=== PATIENT | female | born 1955 | race Caucasian/White ===

== ENCOUNTER 2022-01-09 14:54 | Emergency (ER) | payer OTHER, SELFPAY ==
--- NOTE | ~2022-01-09 | CT_ITS ---
EXAMINATION: CT brain wo con DATE: 01/09/2022 15:31 CDT INDICATION: Altered mental status TECHNIQUE: Computed tomography (CT) of the pelvis was performed without intravenous contrast. CT hannah nstructions of the hip were obtained in the axial, coronal, and sagittal planes. The dose-length prod uct was 605.33 mGy-cm. Automated exposure control and iterative reconstruction technique were employe d. COMPARISON: None FINDINGS: Generalized atrophy. There are scattered severe periventricular and subcortical white matte r changes, most likely related to small vessel ischemic disease (microangiopathy). There are chronic bilateral lacunar and left cerebellar infarctions. No ventriculomegaly or midline shift. No acute inf arction or hemorrhage. There is intracranial atherosclerosis. Paranasal sinuses and mastoids are pneu matized. IMPRESSION: 1. No acute intracranial abnormality. 2: Chronic bilateral lacunar and left cerebellar infarctions. 3: Chronic age-related findings. Reviewed, dictated and finalized at location B.
[2022-01-09 14:12] VITALS: BP 136/72; PULSE 58; RESP 18; TEMP 36.6; O2SAT 99
[2022-01-09 14:34] LABS: Basophils Percent Auto 0.9 % (0.2-1.2); Eosinophils Absolute Auto 0.1 K/mm3 (0-0.3); Eosinophils Percent Auto 2.3 % (0-4.4); Hematocrit 35.7 % (37.0-47.0); Hemoglobin 11.1 g/dL (12.0-15.0); Immature Granulocyte Absolute 0.01 K/mm3 (0.00-0.031); Immature Granulocyte Percent A 0.2 % (0-0.5); Immature Platelet Fraction Pct 4.5 % (0.9-11.2); Lymphocytes Absolute Auto 0.79 K/mm3 (0.9-3.2); Lymphocytes Percent Auto 18.2 % (18.3-44.2); Mean Corpuscular HGB Conc 31.1 g/dl (32-36); Mean Corpuscular Hemoglobin 29.1 pg (26-34); Mean Corpuscular Volume 93.7 fl (80-100); Mean Platelet Volume 10.6 fl (7.4-10.4); Monocytes Absolute Auto 0.3 K/mm3 (0.1-0.6); Monocytes Percent Auto 7.6 % (2.6-8.5); Neutrophils Absolute Auto 3.1 K/mm3 (1.3-6.7); Neutrophils Percent Auto 70.8 % (45.5-73.1); Platelet Count Result 56 k/mm3 (150-375); Red Blood Count 3.81 M/mm3 (4.2-5.4); Red Cell Distribution Width 14.1 % (11.5-14.5); White Blood Count 4.3 K/mm3 (4.5-10.0)
[2022-01-09 14:43] LABS: Alanine Aminotransferase 18 U/L (6-35); Albumin Level 3.8 g/dL (3.5-5.1); Alkaline Phosphatase 64 U/L (38-126); Anion Gap 7 mmol/L (8-16); Aspartate Amino Transferase 34 U/L (14-36); Bilirubin,Total 1.2 mg/dL (0.2-1.3); Blood Urea Nitrogen 26 mg/dL (7-17); Calcium 9.1 mg/dL (8.4-10.2); Carbon Dioxide 28 mmol/L (22-30); Chloride 104 mmol/L (98-107); Estimated Glomerular Filt Rate 45; Glucose 96 mg/dL (65-110); INR 1.3; Partial Thromboplastin Time 31.8 SECONDS (22.3-36.8); Potassium 4.1 mmol/L (3.4-5.0); Prothrombin Time 15.9 Seconds (11.1-14.7); Sodium 139 mmol/L (137-145)
[2022-01-09 15:51] LABS: Immature Reticulocyte Fraction 7.9 % (3.0-15.9); Reticulocyte Hemoglobin Conten 33.5 pg (28.2-35.7); Reticulocyte Percent 1.62 % (0.7-4.3); Reticulocytes Absolute 0.06 B/L (32.2-175.7)
[2022-01-09 16:34] LABS: Iron 57 ug/dL (37-170)
[2022-01-09 16:36] LABS: Lactate Dehydrogenase 133 U/L (120-246); Uric Acid 4.9 mg/dL (2.5-7.5)
[2022-01-09 16:43] LABS: Percent Iron Saturation 17 % (20-50)
--- NOTE | 2022-01-09 17:04 | ED.GENADULT ---
HPI - General Adult General Chief complaint: Recheck/Abnormal Lab/Rx Stated complaint: Abnormal Labs Source: RN notes reviewed History of Present Illness HPI narrative: Patient presents to emergency department from [facility] for low platelet count. The patient had blood work drawn at the facility this morning that came back showing platelets in the 50s at that time the patient was sent to the emergency department for further evaluation. Patient is currently resting in bed she has no complaints at this time she denies any fevers or chills chest pain shortness of breath abdominal pain nausea vomiting. Per the spouse the patient does have dementia and always has some mild confusion and is unsure if she is any more confused than normal. Patient denies any recent illness denies any history of low platelets Related Data Allergies Allergy/AdvReac Type Severity Reaction Status Date / Time No Known Allergies Allergy Verified 01/09/22 16:20 Review of Systems Review of Systems: Gen.: Denies fevers or chills ENT: Denies congestion Respiratory: Denies shortness of breath or cough CV: Denies chest pain or palpitations GI: Denies abdominal pain nausea, emesis or diarrhea Musculoskeletal: Denies back pain or muscle pain Neuro: Denies numbness, tingling, weakness or focal weakness Skin: Denies rash Hematology: See HPI Except as documented, all other systems reviewed and negative COUNT INCLUDES [facility] Past Medical History Medical History (Updated 01/09/22 @ 17:08 by Mauro Godfrey DO) Dementia Social History Social History (Updated 01/09/22 @ 17:05 by Mauro Godfrey DO) Smoking status: Never smoker Exam Narrative: APPEARANCE: No acute distress, nontoxic, resting in bed EYES: EOMI HEENT: Normocephalic, atraumatic, OMM RESPIRATORY: No respiratory distress Clear to auscultation bilaterally with no rhonchi wheezing or rales. CARDIOVASCULAR: Regular rate and rhythm without murmurs rubs or gallops. ABDOMINAL: Soft, nontender, nondistended, no rebound or guarding MUSCULOSKELETAl: Moves all extremities. No clubbing, cyanosis or edema. NEURO: Awake and alert x 2. Following commands, speech normal, no focal deficits SKIN:: Warm, dry. No rashes lesions or abrasions PSYCHIATRIC: Normal affect/mood, Course Course Emergency Course: : Discussed with Dr. Cardenas. States the blood work was routine blood draw Reviewed records patient did have pancytopenia : Discussed with Dr. archibald presentation work-up. Request patient have flow cytometry, reticulocyte count, iron and TIBC folic acid LDH and B12 ordered and she will follow-up as an outpatient with these labs states patient may be discharged follow-up with Dr. Dan in 1 week Discussed with patient results of workup and diagnosis. Discussed need for follow-up with primary care, proper use of medication, and reasons to return to the emergency department. Patient understands and agrees to current treatment plan Vital Signs Vital signs: Vital Signs Temperature 97.8 F 01/09/22 14:12 Pulse Rate 58 L 01/09/22 14:12 Respiratory Rate 18 01/09/22 14:12 Blood Pressure 136/72 01/09/22 14:12 Pulse Oximetry 99 01/09/22 14:12 Oxygen Delivery Room Air 01/09/22 14:12 Temperature 97.8 F 01/09/22 14:12 Pulse Rate 58 L 01/09/22 14:12 Respiratory Rate 18 01/09/22 14:12 Blood Pressure 136/72 01/09/22 14:12 Pulse Oximetry 99 01/09/22 14:12 Oxygen Delivery Room Air 01/09/22 14:12 Medical Decision Making Vital Signs Vital Signs: Vital Signs Temperature 97.8 F 01/09/22 14:12 Pulse Rate 58 L 01/09/22 14:12 Respiratory Rate 18 01/09/22 14:12 Blood Pressure 136/72 01/09/22 14:12 Pulse Oximetry 99 01/09/22 14:12 Oxygen Delivery Room Air 01/09/22 14:12 Temperature 97.8 F 01/09/22 14:12 Pulse Rate 58 L 01/09/22 14:12 Respiratory Rate 18 01/09/22 14:12 Blood Pressure 136/72 01/09/22 14:12 Pulse Oximetry 99 01/09/22 14:12 Oxygen Delivery
[2022-01-09 17:26] VITALS: BP 144/82; PULSE 86; RESP 16; O2SAT 97
[2022-01-09 17:45] LABS: Folic Acid > 20.0 ng/mL (2.76->20)
== END 2022-01-09 17:30 ==
PROVIDERS: Emergency Provider Emergency Medicine
DX: D61.818 Other pancytopenia (principal); F03.90 Unspecified dementia, unspecified severity, without behavioral disturbance, psychotic disturbance, mood disturbance, and anxiety
CPT/HCPCS: 36415; 70450; 80053; 82607; 82746; 83540; 83550; 83615; 84550; 85025; 85046; 85055; 85610; 85730; 86850; 86900; 86901; 99284

== ENCOUNTER 2022-04-28 17:59 | Inpatient (IN) | payer MEDICARE, MEDICAID, SELFPAY ==
--- NOTE | ~2022-04-28 | XR_ITS ---
XR abdomen/kub 1V 05/01/2022 13:18 Indication: Stone planning. Procedure: KUB Comparison: CT dated 04/28/2022 Findings: Bowel gas pattern is nonobstructive. There is extensive atherosclerosis of the abdomen and pelvis. There is a large calcified gallstone in the right upper abdomen. There is a right bipolar hem iarthroplasty. Moderate lumbar spondylosis. Impression: 1: Cholelithiasis. Reviewed, dictated and finalized at location A. MUTUEL CASHIER Impression: 1: Cholelithiasis.
--- NOTE | ~2022-04-28 | CT_ITS ---
EXAMINATION: CT abdomen pelvis wo con DATE: 04/28/2022 19:54 INDICATION: Abdominal pain TECHNIQUE: Computed tomography (CT) of the abdomen and pelvis was performed without intravenous contr ast. The dose-length product was 483.52 mGy-cm. Automated exposure control and iterative reconstructi on technique were employed. COMPARISON: None. FINDINGS: There is dependent atelectasis. Heart size normal. There is extensive atherosclerosis there are gallstones. There is severe atherosclerosis throughout the abdomen including the aorta, renal ar teries, splenic artery. There is a right total hip arthroplasty. There are possible bilateral renal s tones, although these could represent vascular calcifications. There is splenomegaly. The pancreas an d adrenal glands are unremarkable. Nonobstructive bowel gas pattern. Evaluation the pelvis limited by streak artifact from right hip arthroplasty. There is mild thoracic and lumbar spondylosis. IMPRESSION: 1. Advanced diffuse atherosclerosis throughout the abdomen. No evidence for aneurysm. 2: Possible nonobstructing renal stones versus vascular calcifications. 3: Cholelithiasis. 4: Splenomegaly. Reviewed, dictated and finalized at location A. ICAL ADMINISTRATOR IMPRESSION: 1. Advanced diffuse atherosclerosis throughout the abdomen. No evidence for ane urysm. 2: Possible nonobstructing renal stones versus vascular calcifications. 3: Cholelithiasis. 4: Splenomegaly.
--- NOTE | ~2022-04-28 | CT_ITS ---
EXAMINATION: CT pelvis wo con DATE: 05/01/2022 08:57 INDICATION: Bladder stone TECHNIQUE: High resolution computed tomography (CT) of the pelvis was performed without intravenous c ontrast in the prone position. Additional sagittal and coronal reconstructions were performed. Automa ron exposure control and iterative reconstruction technique were employed. The dose-length product wa s 371.54 mGy-cm. COMPARISON: CT dated 04/28/2022 FINDINGS: 7 x 3 mm mobile bladder stone, previously seen along the posterior wall, now along the dependent ante rior wall. Small amount of ascites in the pelvis and lower abdomen. Moderate sigmoid diverticulosis w ithout adjacent inflammatory change to suggest diverticulitis. No dilated bowel to suggest obstructio n. Decreased density at the central aspect of the anteverted uterine fundus suggesting a thickened fo r age endometrial complex measuring approximately 7 mm on the reconstructed sagittal images. There is calcified atherosclerosis of the visualized infrarenal aorta aorta and many of the other arteries in the pelvis and proximal thighs . No pathologically enlarged pelvic or inguinal lymphadenopathy. Post operative changes of a bipolar type right hip hemiarthroplasty. Moderate lumbosacral spondylosis. IMPRESSION: 1. 7 x 3 mm mobile bladder stone, now with prone imaging in the dependent anterior bladder. 2. Sigmoid diverticulosis. 3. Small amount of nonspecific ascites. 4. Suggestion of a possible thickened for age endometrial complex. Correlate for history of vaginal b leeding or hormone replacement and could consider follow-up pelvic ultrasound as clinically indicated . Reviewed, dictated and finalized at location A. ER IN IMPRESSION: 1. 7 x 3 mm mobile bladder stone, now with prone imaging in the dependent anter ior bladder. 2. Sigmoid diverticulosis. 3. Small amount of nonspecific ascites. 4. Suggestion of a possible thickened for age endometrial complex. Correlate fo r history of vaginal bleeding or hormone replacement and could consider follow- up pelvic ultrasound as clinically indicated.
--- NOTE | ~2022-04-28 | US_ITS ---
US abdomen limited INDICATION: Abdomen pain PROCEDURE: Realtime right upper abdominal ultrasound. COMPARISON: No prior studies for comparison. FINDINGS: The pancreas is normal without focal mass or pancreatic ductal dilation. Liver echotexture is increased and heterogeneous, consistent with fatty infiltration. There is a nodular liver surface consistent with cirrhosis. There is normal directional flow in the portal vein. There are gallstones. Gallbladder wall is thickened measuring 4 mm. Common bile duct measures 9 mm. No sonographic Oliveira's sign. IMPRESSION: 1: Cholelithiasis with gallbladder wall thickening and mildly dilated common bile duct measuring 9 mm . Consider cholecystitis in the appropriate clinical setting. 2: Hepatic cirrhosis. Reviewed, dictated and finalized at location A. UNICATION STUDIES PROFESSOR IMPRESSION: 1: Cholelithiasis with gallbladder wall thickening and mildly dilated common bi le duct measuring 9 mm. Consider cholecystitis in the appropriate clinical sett ing. 2: Hepatic cirrhosis.
[2022-04-28 18:05] VITALS: TEMP 37.1
[2022-04-28 18:43] LABS: Hematocrit 33.3 % (37.0-47.0); Hemoglobin 10.8 g/dL (12.0-15.0); Immature Platelet Fraction Pct 5.8 % (0.9-11.2); Mean Corpuscular HGB Conc 32.4 g/dl (32-36); Mean Corpuscular Hemoglobin 30.4 pg (26-34); Mean Corpuscular Volume 93.8 fl (80-100); Mean Platelet Volume 11.3 fl (7.4-10.4); Platelet Count Result 40 k/mm3 (150-375); Red Blood Count 3.55 M/mm3 (4.2-5.4); Red Cell Distribution Width 14.6 % (11.5-14.5); White Blood Count 6.1 K/mm3 (4.5-10.0)
[2022-04-28 18:50] LABS: Lactic Acid Reflex 1.5 mmol/L (0.7-2.0)
[2022-04-28 18:55] LABS: INR 1.5; Prothrombin Time 17.3 Seconds (11.1-14.7)
[2022-04-28 18:57] LABS: Partial Thromboplastin Time 36.1 SECONDS (22.3-36.8)
[2022-04-28 19:11] LABS: Band Neutrophils Percent 9 % (0-6); Lymphocytes Absolute Manual 0.24 K/mm3 (1.1-4.5); Monocytes Percent Manual 5 % (3-9); Neutrophils Absolute Manual 5.55 K/mm3 (1.7-7.2); Neutrophils Percent Manual 82 % (46-73); Platelet Estimate Decreased (Adequate); Total Cells Counted 100
[2022-04-28 19:12] LABS: Schistocytes None Seen (NORMAL)
[2022-04-28] MEDS: MORPHINE SULFATE (*CRX) 4 MG/ML INJ IV PUSH (19:22)
[2022-04-28 19:29] LABS: Add Urine Microscopic? YES; Appearance Urine Clear (Clear); Bilirubin Urine Negative (Negative); Blood Urine 3+ (Negative); Color Urine Red (Yellow); Glucose Urine UA Negative (Negative); Ketones Urine Negative (Negative); Leukocyte Esterase Ur 1+ LEU/UL (Negative); Nitrate Urine Negative (Negative); Protein Urine 3+ mg/dL (Negative)
[2022-04-28 19:34] LABS: Mucus Urine Rare /lpf; RBC Urine >75 /hpf (0-2); WBC Urine 21-30 /hpf
[2022-04-28 19:39] LABS: Alanine Aminotransferase 29 U/L (6-35); Albumin Level 3.6 g/dL (3.5-5.1); Alkaline Phosphatase 65 U/L (38-126); Anion Gap 8 mmol/L (8-16); Aspartate Amino Transferase 56 U/L (14-36); Bilirubin,Total 2.2 mg/dL (0.2-1.3); Blood Urea Nitrogen 48 mg/dL (7-17); Carbon Dioxide 28 mmol/L (22-30); Chloride 100 mmol/L (98-107); Estimated Glomerular Filt Rate 23; Glucose 117 mg/dL (65-110); Lipase 52 U/L (23-300); Potassium 3.7 mmol/L (3.4-5.0); Sodium 136 mmol/L (137-145)
--- NOTE | 2022-04-28 19:54 | ED.ABDPAIN ---
HPI - Abdominal Pain General Chief Complaint: Abdominal Pain Stated Complaint: abnormal labs, constipated Time Seen by Provider: 04/28/22 18:21 History of Present Illness HPI narrative: Patient is a 66-year-old female who presents ER with abdominal pain. Patient has difficulty communicating due to previous stroke. FDC felt related to constipation has been giving enemas. They have not been successful so she was brought here for further evaluation. Patient seems to be diffusely tender abdomen. She does look uncomfortable. Related Data Allergies Allergy/AdvReac Type Severity Reaction Status Date / Time No Known Allergies Allergy Verified 01/09/22 16:20 Review of Systems Review of Systems: ROS unobtainable: Yes unobtainable due to medical condition PMFSH Past Medical History Medical History (Updated 04/28/22 @ 21:48 by Shaw Keller MD) Dementia Hepatitis C History of CVA (cerebrovascular accident) Hypertension Major depression Myocardial infarction Surgical History Surgical History History of percutaneous coronary intervention Social History Social History Smoking status: Never smoker Exam Narrative: GENERAL: Chronically ill-appearing, well-nourished, and in mild distress. HEAD: Normocephalic, atraumatic. EYES: PERRL and EOMI. ENT: Mucous membranes moist. CHEST: Clear to auscultation. No respiratory distress. HEART: Regular rate and rhythm. Normal peripheral pulses. ABDOMEN: Soft, diffusely tender with guarding, nondistended. EXTREMITIES: Moves all extremities but has some contractures in the hands and chronic weakness. SKIN: Warm, dry, no rash. NEURO: Alert and oriented x3. PSYCH: Normal mood and affect. Course Course Emergency Course: Admit to hospitalist. Patient does have some bandemia and shift. Patient will be started ceftriaxone in case he has UTI. Symptoms could also potentially be coming from the gallbladder since she has right upper quadrant and right lower quadrant pain. We will add Flagyl. Vital Signs Vital signs: Vital Signs Temperature 98.7 F 04/28/22 18:05 Temperature 98.7 F 04/28/22 18:05 MDM - Abdominal Pain Lab Data 04/28/22 18:34 04/28/22 19:21 Labs: Lab Results 04/28/22 04/28/22 04/28/22 Range/Units 18:34 18:34 18:35 WBC 6.1 (4.5-10.0) K/mm3 RBC 3.55 L (4.2-5.4) M/mm3 Hgb 10.8 L (12.0-15.0) g/dL Hct 33.3 L (37.0-47.0) % MCV 93.8 (80-100) fl MCH 30.4 (26-34) pg MCHC 32.4 (32-36) g/dl RDW 14.6 H (11.5-14.5) % Plt Count 40 L (150-375) k/mm3 MPV 11.3 H (7.4-10.4) fl Immature Gran % (Auto) Not Reportable Neut % (Auto) Not Reportable Lymph % (Auto) Not Reportable [place] % (Auto) Not Reportable Eos % (Auto) Not Reportable Baso % (Auto) Not Reportable Lymph # (Auto) Not Reportable [place] # (Auto) Not Reportable Eos # (Auto) Not Reportable Baso # (Auto) Not Reportable Abs Immat Gran (auto) Not Reportable Absolute Neuts (auto) Not Reportable Absolute Nucleated RBC Not Reportable Total Counted 100 Neutrophils % (Manual) 82 H (46-73) % Band Neutrophils % 9 H (0-6) % Lymphocytes % (Manual) 4.0 L (18-44) % Monocytes % (Manual) 5 (3-9) % Nucleated RBC % Not Reportable Abs Neuts (Manual) 5.55 (1.7-7.2) K/mm3 Abs Lymphs (Manual) 0.24 L (1.1-4.5) K/mm3 Abs Monocytes (Manual) 0.30 (0.1-0.90) K/mm3 Platelet Estimate Decreased (Adequate) % Immature Plt Fraction 5.8 (0.9-11.2) % Schistocytes None seen (NORMAL) PT 17.3 H (11.1-14.7) Seconds INR 1.5 APTT 36.1 (22.3-36.8) SECONDS Sodium (137-145) mmol/L Potassium (3.4-5.0) mmol/L Chloride (98-107) mmol/L Carbon Dioxide (22-30) mmol/L Anion Gap
[2022-04-28] MEDS: SODIUM CHLORIDE 0.9% IV 1,000 ML 999 ML IV CONT (20:03)
--- NOTE | 2022-04-28 21:19 | PM.IMHP ---
H&P: HPI History of Present Illness Date/Time: 04/28/22 21:19 Chief Complaint: 66 years old female with past medical history of stroke hypertension SC dementia hepatitis C presented to the hospital with abdominal pain patient is poor historian history was taken from the ER records and patient's family patient was having abdominal discomfort and abdominal pain no fever or chills at the ER CT scan the abdomen showed bladder stone most likely consistent with recently passed ureteric stone patient also had cholelithiasis on exam patient was having right hypochondrial tenderness bilirubin was 2.1 normally 1.4 creatinine was elevated patient was found to have dehydration acute renal failure probable UTI concern for gallbladder disease started on IV antibiotics IV hydration pain control urology was consulted ultrasound of the abdomen was ordered Review of Systems Review of Systems: Limited due to patient current condition [facility] Past Medical History Medical History (Updated 04/28/22 @ 21:26 by Arleen Ga MD) Dementia Hepatitis C History of CVA (cerebrovascular accident) Hypertension Major depression Myocardial infarction Surgical History Surgical History History of percutaneous coronary intervention Social History Social History Smoking status: Never smoker Meds Home Medications and Allergies Allergies Allergy/AdvReac Type Severity Reaction Status Date / Time No Known Allergies Allergy Verified 01/09/22 16:20 Vital Signs Vital Signs - 24 hr 04/28/22 18:05 Temperature 98.7 F Exam Narrative: GENERAL: Looks weak HEAD: Normocephalic, atraumatic. NECK: Supple. No adenopathy, no masses. RESPIRATORY: Airway patent, respirations nonlabored. Clear to auscultation bilaterally, no rales, rhonchi, wheezing. CARDIOVASCULAR: Regular rate and rhythm without murmurs, rubs, or gallops. Peripheral pulses 2+ and equal bilaterally. ABDOMINAL: Suprapubic tenderness right hypochondrial tenderness. MUSCULOSKELETAL: Negative lower extremity edema. SKIN: Warm, dry, normal color. No rashes. NEURO: A&O moves all extremities PSYCHIATRIC: Appropriate mood and affect. Normal interaction. H&P: Results Labs Labs: Short CBC 04/28/22 Range/Units 18:34 WBC 6.1 (4.5-10.0) K/mm3 Hgb 10.8 L (12.0-15.0) g/dL Hct 33.3 L (37.0-47.0) % Plt Count 40 L (150-375) k/mm3 BMP 04/28/22 19:21 Sodium 136 L Potassium 3.7 Chloride 100 Carbon Dioxide 28 BUN 48 H D Creatinine 2.10 H Glucose 117 H Calcium 8.0 L Liver Function 04/28/22 Range/Units 19:21 Total Bilirubin 2.2 H (0.2-1.3) mg/dL AST 56 H (14-36) U/L ALT 29 (6-35) U/L Alkaline Phosphatase 65 (38-126) U/L Albumin 3.6 (3.5-5.1) g/dL Urine 04/28/22 Range/Units 19:21 Urine Color Red H (Yellow) Urine Appearance Clear (Clear) Urine pH 5.0 (5.0-9.0) Ur Specific [place] 1.010 (1.001-1.035) Urine Protein 3+ H (Negative) mg/dL Urine Glucose (UA) Negative (Negative) mg/dL Assessment and Plan Assessment and plan (1) Dementia: Code(s): F03.90 - Unspecified dementia, unspecified severity, without behavioral disturbance, psychotic disturbance, mood disturbance, and anxiety Status: Acute Assessment and Plan: Stable pending home medication reconciliation (2) Myocardial infarction: Code(s): I21.9 - Acute myocardial infarction, unspecified Status: Acute Assessment and Plan: Patient on labetalol and statin pending home medication reconciliation (3) Major depression: Code(s): F32.9 - Major depressive disorder, single episode, unspecified Status: Acute Assessment and Plan: Stable (4) Hypertension: Code(s): I10 - Essential (primary) hypertension Status: Acute Assessment and Plan: Resume
[2022-04-28 21:57] LABS: SARS-CoV-2 RNA PCR Negative
[2022-04-28 22:00] VITALS: BP 133/60; PULSE 61; RESP 20; TEMP 37.1; O2SAT 92
[2022-04-28 22:50] VITALS: BMI 19.9
--- NOTE | 2022-04-28 23:13 | ADMGEN ---
This patient, Ursula Zapata, was admitted to Medical Room 345-. Patient/family oriented to hospital policies and general routines including ID bracelet, bed and alarms, visiting hours, pain management, procedures, bathroom and other care routines, personal items, smoking policy, room service/diet, and visiting hours. Information on how to activate the Rapid Response Team has been discussed. Patient/Family are encouraged to report perceived risks to care and to ask questions if they do not understand what they are told or what they should do.
[2022-04-29] VITALS (12 sets, daily range): BP systolic 127–151; BP diastolic 50–65; PULSE 58–80; RESP 15–20; TEMP 36.5–36.9; O2SAT 92–97; BMI 19.9
[2022-04-29] MEDS: metroNIDAZOLE 500 MG/ISO 100ML 500 MG/100 ML BAG 100 MG IVPB ×2 (00:24→06:24)
[2022-04-29] MEDS: SODIUM CHLORIDE 0.9% IV 1,000 ML 100 ML IV CONT (00:24)
[2022-04-29 01:02] LABS: Ammonia 11 umol/L (9-30)
[2022-04-29 01:11] LABS: Creatine Kinase 74 U/L (30-135)
[2022-04-29 01:19] LABS: CRP 16.1 mg/dL (<1.0)
[2022-04-29 01:52] LABS: Hepatitis B Surface Antigen Negative (Negative)
[2022-04-29 01:58] LABS: HAV RESULT Negative (Negative); Hepatitis B Core IgM Result Negative (Negative)
[2022-04-29] MEDS: cefTRIAXone 2 GM in SODIUM CHLORIDE 0.9% IV 100 ML 200 ML IVPB ×2 (01:59→20:35)
[2022-04-29 02:10] LABS: Hepatitis C Virus Antibody Reactive (Negative)
[2022-04-29 07:39] LABS: Alanine Aminotransferase 26 U/L (6-35); Alkaline Phosphatase 57 U/L (38-126); Anion Gap 6 mmol/L (8-16); Aspartate Amino Transferase 47 U/L (14-36); Bilirubin,Total 1.5 mg/dL (0.2-1.3); Blood Urea Nitrogen 48 mg/dL (7-17); Calcium 7.3 mg/dL (8.4-10.2); Carbon Dioxide 28 mmol/L (22-30); Chloride 107 mmol/L (98-107); Estimated CRCL calculation 21 ml/min; Estimated Glomerular Filt Rate 26; Glucose 99 mg/dL (65-110); Potassium 3.9 mmol/L (3.4-5.0); Sodium 141 mmol/L (137-145)
[2022-04-29 07:40] LABS: Basophils Percent Auto 0.5 % (0.2-1.2); Hematocrit 31.7 % (37.0-47.0); Hemoglobin 10.1 g/dL (12.0-15.0); Immature Granulocyte Absolute 0.01 K/mm3 (0.00-0.031); Immature Granulocyte Percent A 0.2 % (0-0.5); Immature Platelet Fraction Pct 8.6 % (0.9-11.2); Lymphocytes Absolute Auto 0.27 K/mm3 (0.9-3.2); Lymphocytes Percent Auto 6.4 % (18.3-44.2); Mean Corpuscular HGB Conc 31.9 g/dl (32-36); Mean Corpuscular Hemoglobin 30.2 pg (26-34); Mean Corpuscular Volume 94.9 fl (80-100); Mean Platelet Volume 11.8 fl (7.4-10.4); Monocytes Absolute Auto 0.3 K/mm3 (0.1-0.6); Monocytes Percent Auto 6.8 % (2.6-8.5); Neutrophils Absolute Auto 3.7 K/mm3 (1.3-6.7); Neutrophils Percent Auto 86.1 % (45.5-73.1); Platelet Count Result 36 k/mm3 (150-375); Red Blood Count 3.34 M/mm3 (4.2-5.4); Red Cell Distribution Width 14.6 % (11.5-14.5); White Blood Count 4.2 K/mm3 (4.5-10.0)
[2022-04-29] MEDS: LABETALOL HCL 100 MG TABLET PO ×2 (09:07→17:04)
[2022-04-29] MEDS: SERTRALINE HCL 50 MG TABLET PO (09:07)
[2022-04-29] MEDS: FAMOTIDINE 20 MG TABLET PO ×2 (09:08→20:35)
[2022-04-29] MEDS: MEMANTINE 10 MG TABLET PO ×2 (09:08→17:05)
[2022-04-29] MEDS: amLODIPine BESYLATE 2.5 MG TABLET PO (09:08)
--- NOTE | 2022-04-29 10:59 | PM.IMPN ---
Progress Note: A&P Assessment and Plan (1) Dementia: Code(s): F03.90 - Unspecified dementia, unspecified severity, without behavioral disturbance, psychotic disturbance, mood disturbance, and anxiety Status: Acute Assessment and Plan: Stable pending home medication reconciliation (2) Myocardial infarction: Code(s): I21.9 - Acute myocardial infarction, unspecified Status: Acute Assessment and Plan: Patient on labetalol and statin pending home medication reconciliation hx of (3) Major depression: Code(s): F32.9 - Major depressive disorder, single episode, unspecified Status: Acute Assessment and Plan: Stable (4) Hypertension: Code(s): I10 - Essential (primary) hypertension Status: Acute Assessment and Plan: Resume labetalol (5) Hepatitis C: Code(s): B19.20 - Unspecified viral hepatitis C without hepatic coma Status: Acute Assessment and Plan: Patient has abnormal LFT with elevated bilirubin will get ultrasound of the abdomen Will get acute hepatitis panel Hold statin (6) History of CVA (cerebrovascular accident): Code(s): Z86.73 - Personal history of transient ischemic attack (TIA), and cerebral infarction without residual deficits Status: Acute Assessment and Plan: Pending home medication reconciliation (7) Cholelithiasis: Code(s): K80.20 - Calculus of gallbladder without cholecystitis without obstruction Status: Acute Assessment and Plan: no cholecystitis advance diet titrate off abx for this (8) UTI (urinary tract infection): Code(s): N39.0 - Urinary tract infection, site not specified Status: Acute Assessment and Plan: IV Rocephin pending urine culture (9) Urolithiasis: Code(s): N20.9 - Urinary calculus, unspecified Status: Acute Assessment and Plan: CT scan showed bladder stone urology evaluation pending continue empiric IV antibiotics Continue IV hydration (10) SUBHASH (acute kidney injury): Code(s): N17.9 - Acute kidney failure, unspecified Status: Acute Assessment and Plan: IV fluid she reviewed CT scan of the abdomen check CK Subjective Date/time seen: 04/29/22 10:59 no new complaints Exam Narrative: GENERAL: Looks weak HEAD: Normocephalic, atraumatic. NECK: Supple. No adenopathy, no masses. RESPIRATORY: Airway patent, respirations nonlabored. Clear to auscultation bilaterally, no rales, rhonchi, wheezing. CARDIOVASCULAR: Regular rate and rhythm without murmurs, rubs, or gallops. Peripheral pulses 2+ and equal bilaterally. ABDOMINAL: Suprapubic tenderness right hypochondrial tenderness. MUSCULOSKELETAL: Negative lower extremity edema. SKIN: Warm, dry, normal color. No rashes. NEURO: A&O moves all extremities PSYCHIATRIC: Appropriate mood and affect. Normal interaction. Objective Data Vital Signs Vital Signs: Vital Signs - 24 hr 04/28/22 18:05 04/28/22 22:00 04/29/22 00:00 Temperature 98.7 F 98.7 F 98.4 F Pulse Rate 61 58 L Respiratory Rate 20 20 Blood Pressure 133/60 133/60 Pulse Oximetry 92 92 Oxygen Delivery 04/29/22 00:00 04/29/22 02:46 04/29/22 04:00 Temperature Pulse Rate 68 68 76 Respiratory Rate 20 Blood Pressure Pulse Oximetry 92 Oxygen Delivery Room Air 04/29/22 05:21 04/29/22 09:07 Temperature 97.7 F Pulse Rate 78 67 Respiratory Rate 20 Blood Pressure 151/65 H Pulse Oximetry 96 Oxygen Delivery Intake/Output Intake/Output: Intake & Output 04/26/22 04/27/22 04/28/22 04/29/22 23:59 23:59 23:59 23:59 Intake Total 1000 300 Balance 1000 300 Meds/Results Medications: Active Medications Generic Name Dose Route Start Last Admin Trade Name Freq PRN Reason Stop Dose Admin Hydrocodone Bitart/Acetaminophen 1 tab 04/28/22 21:13 Hydrocodone/Acetaminophen (*Crx) 5-325 Mg Tablet PO Q6H PRN Pain Rated 4-6 Amlodipine Bes
[2022-04-29] MEDS: DONEPEZIL HCL 5 MG TABLET PO (20:35)
[2022-04-29] MEDS: ATORVASTATIN 40 MG TABLET PO (20:35)
[2022-04-30] VITALS (11 sets, daily range): BP systolic 138–144; BP diastolic 57–81; PULSE 56–88; RESP 16–20; TEMP 36.5–36.6; O2SAT 95–100
[2022-04-30] MEDS: SODIUM CHLORIDE 0.9% IV 1,000 ML 100 ML IV CONT ×2 (02:54→12:57)
[2022-04-30] MEDS: MORPHINE SULFATE (*CRX) 2 MG/ML INJ IV PUSH (04:25)
[2022-04-30 06:42] LABS: Basophils Percent Auto 0.3 % (0.2-1.2); Eosinophils Percent Auto 0.3 % (0-4.4); Hematocrit 30.1 % (37.0-47.0); Hemoglobin 9.6 g/dL (12.0-15.0); Immature Granulocyte Absolute 0.03 K/mm3 (0.00-0.031); Immature Granulocyte Percent A 0.9 % (0-0.5); Immature Platelet Fraction Pct 9.7 % (0.9-11.2); Lymphocytes Absolute Auto 0.35 K/mm3 (0.9-3.2); Lymphocytes Percent Auto 10.2 % (18.3-44.2); Mean Corpuscular HGB Conc 31.9 g/dl (32-36); Mean Corpuscular Hemoglobin 29.4 pg (26-34); Mean Platelet Volume 12.2 fl (7.4-10.4); Monocytes Absolute Auto 0.3 K/mm3 (0.1-0.6); Monocytes Percent Auto 9.4 % (2.6-8.5); Neutrophils Absolute Auto 2.7 K/mm3 (1.3-6.7); Neutrophils Percent Auto 78.9 % (45.5-73.1); Platelet Count Result 36 k/mm3 (150-375); Red Blood Count 3.27 M/mm3 (4.2-5.4); Red Cell Distribution Width 14.6 % (11.5-14.5); White Blood Count 3.4 K/mm3 (4.5-10.0)
[2022-04-30 06:52] LABS: Alanine Aminotransferase 24 U/L (6-35); Albumin Level 2.7 g/dL (3.5-5.1); Alkaline Phosphatase 50 U/L (38-126); Anion Gap 7 mmol/L (8-16); Aspartate Amino Transferase 48 U/L (14-36); Blood Urea Nitrogen 46 mg/dL (7-17); Calcium 6.7 mg/dL (8.4-10.2); Carbon Dioxide 25 mmol/L (22-30); Chloride 106 mmol/L (98-107); Estimated CRCL calculation 25 ml/min; Estimated Glomerular Filt Rate 32; Glucose 88 mg/dL (65-110); Potassium 3.4 mmol/L (3.4-5.0); Sodium 138 mmol/L (137-145)
--- NOTE | 2022-04-30 09:07 | WPDURCON ---
Assessment and Plan Assessment and plan (1) Bladder stone: Code(s): N21.0 - Calculus in bladder Status: Acute (2) Acute UTI: Code(s): N39.0 - Urinary tract infection, site not specified Status: Acute (3) Urolithiasis: Code(s): N20.9 - Urinary calculus, unspecified Status: Acute Plan Based on CT scan, she has no clear imaging for obstructing stones. It looks like she has a bladder stone, but based on mild right renal pelvis fullness, even with this imaging appearing to be a bladder stone, a stone stuck in the right UVJ needs to be considered. If it is a bladder stone, bladder stones would not cause systemic illness or acute pain requiring hospital admission. PLAN: -No acute urologic intervention, though will plan for NPO at midnight and repeat CT in the AM to assess stone again -- CT will be done prone or left lateral decubitus, to see if the stone moves to a dependent position away from the right ureteral orifice -- dependent movement would favor nonobstructing bladder stone, while persistence near the right UVJ would favor right ureteral stone, and her NPO status would allow for urologic intervention -NPO at Midnight in case of need or urologic intervention -CT Pelvis prone vs. left lateral decubitus in the AM to determine next steps Urology Consult Note HPI Date Seen: 04/30/22 Requesting Physician: Arleen Ga MD Primary Care Provider: Perry Cardenas MD Consult Narrative Narrative: Ursula Zapata is a 66 year old female with reports of dementia and expressive aphasia who was brought to [facility] for increasing pain. Urology was consulted due to concern for a UTI as well as a CT scan showing an 8mm bladder stone, though a recently passed right ureteral stone due to some right renal pelvis fullness was also considered -- notably her CT and Abd US show cholelithiasus with potential cholecystitis as well. Urine culture and preliminary blood cultures are GNR's She is AFVSS, WBC 3.4, Cr 1.6 from 1.9 For what questions she is able to give, she says she feels no better or worse than on admission. Review of Systems Review of Systems: Unable to assess due to aphasia PMFSH Past Medical History Medical History (Updated 04/28/22 @ 21:48 by Shaw Keller MD) Dementia Hepatitis C History of CVA (cerebrovascular accident) Hypertension Major depression Myocardial infarction Surgical History Surgical History History of percutaneous coronary intervention Social History Social History Smoking status: Never smoker Alcohol intake: never Substance use: never Substance use type: does not use Spiritual care concerns: No Meds Home Medications and Allergies Home Medications Medication Instructions Recorded Confirmed Type acetaminophen 325 mg tablet 325 mg PO PRN 04/28/22 04/28/22 History (Tylenol) alendronate 70 mg tablet (Fosamax) 70 mg PO WEEKLY 04/28/22 04/28/22 History amlodipine 2.5 mg tablet (Norvasc) 2.5 mg PO DAILY 04/28/22 04/28/22 History atorvastatin 40 mg tablet (Lipitor) 40 mg PO HS 04/28/22 04/28/22 History cholecalciferol (vitamin D3) 25 25 mcg PO DAILY 04/28/22 04/28/22 History mcg (1,000 unit) tablet (Vitamin D3) donepezil 5 mg tablet (Aricept) 5 mg PO HS 04/28/22 04/28/22 History labetalol 100 mg tablet 100 mg PO BID 04/28/22 04/28/22 History memantine 10 mg tablet (Namenda) 10 mg PO BID 04/28/22 04/28/22 History polyethylene glycol 3350 17 gram 17 g PO DAILY 04/28/22 04/28/22 History oral powder packet (Miralax) sennosides 8.6 mg-docusate sodium 8.5 - 50 tablet PO HS 04/28/22 04/28/22 History 50 mg tablet (Senna Plus) sertraline 50 mg tablet (Zoloft) 50 mg PO DAILY 04/28/22 04/28/22 History Allergies Allergy/AdvReac Type Severity Reaction Status Date / Time lisinopril Allergy Unkno
[2022-04-30] MEDS: amLODIPine BESYLATE 2.5 MG TABLET PO (09:32)
[2022-04-30] MEDS: MEMANTINE 10 MG TABLET PO ×2 (09:32→17:08)
[2022-04-30] MEDS: SERTRALINE HCL 50 MG TABLET PO (09:32)
[2022-04-30] MEDS: LABETALOL HCL 100 MG TABLET PO ×2 (09:32→17:08)
[2022-04-30] MEDS: FAMOTIDINE 20 MG TABLET PO ×2 (09:32→20:28)
--- NOTE | 2022-04-30 12:43 | PM.IMPN ---
Progress Note: A&P Assessment and Plan (1) Dementia: Code(s): F03.90 - Unspecified dementia, unspecified severity, without behavioral disturbance, psychotic disturbance, mood disturbance, and anxiety Status: Acute Assessment and Plan: Stable pending home medication reconciliation (2) Myocardial infarction: Code(s): I21.9 - Acute myocardial infarction, unspecified Status: Acute Assessment and Plan: Patient on labetalol and statin pending home medication reconciliation hx of (3) Major depression: Code(s): F32.9 - Major depressive disorder, single episode, unspecified Status: Acute Assessment and Plan: Stable (4) Hypertension: Code(s): I10 - Essential (primary) hypertension Status: Acute Assessment and Plan: Resume labetalol (5) Hepatitis C: Code(s): B19.20 - Unspecified viral hepatitis C without hepatic coma Status: Acute Assessment and Plan: Patient has abnormal LFT with elevated bilirubin will get ultrasound of the abdomen Will get acute hepatitis panel Hold statin (6) History of CVA (cerebrovascular accident): Code(s): Z86.73 - Personal history of transient ischemic attack (TIA), and cerebral infarction without residual deficits Status: Acute Assessment and Plan: Pending home medication reconciliation (7) Cholelithiasis: Code(s): K80.20 - Calculus of gallbladder without cholecystitis without obstruction Status: Acute Assessment and Plan: no cholecystitis advance diet titrate off abx for this (8) UTI (urinary tract infection): Code(s): N39.0 - Urinary tract infection, site not specified Status: Acute Assessment and Plan: IV Rocephin pending urine culture Positive blood cultures, continue IV antibiotics (9) Urolithiasis: Code(s): N20.9 - Urinary calculus, unspecified Status: Acute Assessment and Plan: CT scan showed bladder stone urology evaluation pending continue empiric IV antibiotics Continue IV hydration (10) SUBHASH (acute kidney injury): Code(s): N17.9 - Acute kidney failure, unspecified Status: Acute Assessment and Plan: IV fluid she reviewed CT scan of the abdomen check CK Subjective Date/time seen: 04/30/22 12:43 no complaints Exam Narrative: GENERAL: Looks weak HEAD: Normocephalic, atraumatic. NECK: Supple. No adenopathy, no masses. RESPIRATORY: Airway patent, respirations nonlabored. Clear to auscultation bilaterally, no rales, rhonchi, wheezing. CARDIOVASCULAR: Regular rate and rhythm without murmurs, rubs, or gallops. Peripheral pulses 2+ and equal bilaterally. ABDOMINAL: Suprapubic tenderness right hypochondrial tenderness. MUSCULOSKELETAL: Negative lower extremity edema. SKIN: Warm, dry, normal color. No rashes. NEURO: A&O moves all extremities PSYCHIATRIC: Appropriate mood and affect. Normal interaction. Objective Data Vital Signs Vital Signs: Vital Signs - 24 hr 04/29/22 13:45 04/29/22 16:00 04/29/22 17:04 Temperature 98.4 F Pulse Rate 72 65 65 Respiratory Rate 15 Blood Pressure 127/57 L Pulse Oximetry 96 Oxygen Delivery 04/29/22 20:00 04/29/22 20:16 04/29/22 20:00 Temperature 98 F Pulse Rate 65 63 67 Respiratory Rate 15 20 Blood Pressure 132/50 L Pulse Oximetry 96 97 Oxygen Delivery Room Air 04/30/22 00:00 04/30/22 04:46 04/30/22 04:00 Temperature 97.7 F Pulse Rate 67 88 61 Respiratory Rate 20 Blood Pressure 138/57 L Pulse Oximetry 95 Oxygen Delivery 04/30/22 09:32 04/30/22 08:00 Temperature Pulse Rate 66 56 L Respiratory Rate Blood Pressure Pulse Oximetry Oxygen Delivery Intake/Output Intake/Output: Intake & Output 04/27/22 04/28/22 04/29/22 04/30/22 23:59 23:59 23:59 23:59 Intake Total 1000 2360 240 Balance 1000 2360 240 Meds/Results Medications: Active Medications Generic Name Dose Route Start
[2022-04-30] MEDS: ATORVASTATIN 40 MG TABLET PO (20:28)
[2022-04-30] MEDS: DONEPEZIL HCL 5 MG TABLET PO (20:29)
[2022-04-30] MEDS: cefTRIAXone 2 GM in SODIUM CHLORIDE 0.9% IV 100 ML 200 ML IVPB (20:44)
[2022-05-01] VITALS: PULSE 59
[2022-05-01 04:00] VITALS: PULSE 69
[2022-05-01 06:23] LABS: Basophils Percent Auto 0.5 % (0.2-1.2); Eosinophils Absolute Auto 0.1 K/mm3 (0-0.3); Eosinophils Percent Auto 1.3 % (0-4.4); Hematocrit 30.3 % (37.0-47.0); Hemoglobin 9.9 g/dL (12.0-15.0); Immature Granulocyte Absolute 0.03 K/mm3 (0.00-0.031); Immature Granulocyte Percent A 0.8 % (0-0.5); Immature Platelet Fraction Pct 7.9 % (0.9-11.2); Lymphocytes Absolute Auto 0.45 K/mm3 (0.9-3.2); Lymphocytes Percent Auto 11.7 % (18.3-44.2); Mean Corpuscular HGB Conc 32.7 g/dl (32-36); Mean Corpuscular Hemoglobin 29.6 pg (26-34); Mean Corpuscular Volume 90.4 fl (80-100); Mean Platelet Volume 11.8 fl (7.4-10.4); Monocytes Absolute Auto 0.4 K/mm3 (0.1-0.6); Monocytes Percent Auto 9.9 % (2.6-8.5); Neutrophils Absolute Auto 2.9 K/mm3 (1.3-6.7); Neutrophils Percent Auto 75.8 % (45.5-73.1); Platelet Count Result 40 k/mm3 (150-375); Red Blood Count 3.35 M/mm3 (4.2-5.4); Red Cell Distribution Width 14.4 % (11.5-14.5); White Blood Count 3.8 K/mm3 (4.5-10.0)
[2022-05-01 06:32] LABS: Potassium 3.2 mmol/L (3.4-5.0)
[2022-05-01] MEDS: SODIUM CHLORIDE 0.9% IV 1,000 ML 100 ML IV CONT (06:32)
[2022-05-01 06:41] LABS: Alanine Aminotransferase 21 U/L (6-35); Albumin Level 2.5 g/dL (3.5-5.1); Alkaline Phosphatase 51 U/L (38-126); Anion Gap 6 mmol/L (8-16); Aspartate Amino Transferase 46 U/L (14-36); Bilirubin,Total 0.8 mg/dL (0.2-1.3); Blood Urea Nitrogen 34 mg/dL (7-17); Calcium 6.8 mg/dL (8.4-10.2); Carbon Dioxide 19 mmol/L (22-30); Chloride 105 mmol/L (98-107); Estimated CRCL calculation 31 ml/min; Estimated Glomerular Filt Rate 41; Glucose 84 mg/dL (65-110); Sodium 130 mmol/L (137-145)
[2022-05-01 08:00] VITALS: PULSE 81
[2022-05-01 08:18] LABS: Platelet Estimate Decreased (Adequate); Schistocytes None Seen (NORMAL)
--- NOTE | 2022-05-01 10:42 | PC.NURSE ---
Morning medications not given as urologist has report in stating to keep patient NPO in case of need for urologic intervention.
--- NOTE | 2022-05-01 10:46 | WPDUROPN2 ---
Progress Note: A&P Assessment and Plan (1) Acute UTI: Code(s): N39.0 - Urinary tract infection, site not specified Status: Acute Assessment and Plan: Urine and blood cultures growing Proteus, but patient remains on culture sensitive Ceftriaxone. Ok to discharge home at anytime on appropriate oral antibiotics. (2) Bladder stone: Code(s): N21.0 - Calculus in bladder Status: Acute Assessment and Plan: No need for surgical intervention at this time as stone is not obstructing in the UVJ. Will plan to get a KUB to ensure stone is visible, then f/u in 2-3 weeks with repeat KUB and if stone has not passed from the bladder will need to plan an outpatient cysto with bladder stone removal. Ok to resume diet. (3) SUBHASH (acute kidney injury): Code(s): N17.9 - Acute kidney failure, unspecified Status: Acute Assessment and Plan: Improved to 1.30. Subjective Subjective Date/Time Seen: 05/01/22 10:46 Patient with 8x4mm stone in either bladder or right UVJ stone on CT from 04/28/22, creatinine was initially 1.9, but has decreased to 1.30. Since there is renal pelvis distention there was concern that the stone was possibly in the UVJ. The patient has dementia and is unable to relay proper health hisotry or symptoms. It was suggested by Dr. Tobias to do a prone CT today to see if the stone is mobile in the bladder or fixed in the UVJ requiring a ureteroscopy. Patient denies pain and is sitting up in bed alert and calm. She is A&O x1. Review of Systems Review of Systems: ROS unobtainable: Yes unobtainable due to mental status Exam Const: General: comfortable, no acute distress, alert and awake Resp: Effort & Inspection: normal respiratory effort Cardio: Rate: regular rate GI: GI Palp: Yes Soft to palpation and No Tenderness to palpation present (GI) : General: Yes no CVA tenderness Extrem: General: no edema Objective Data Vital Signs Vital Signs: Vital Signs - 24 hr 04/30/22 17:08 04/30/22 17:16 04/30/22 12:00 Temperature 97.9 F Pulse Rate 69 79 66 Respiratory Rate 16 Blood Pressure 144/81 H Pulse Oximetry 100 Oxygen Delivery 04/30/22 16:00 04/30/22 20:00 04/30/22 20:00 Temperature Pulse Rate 66 79 68 Respiratory Rate 16 Blood Pressure Pulse Oximetry 100 Oxygen Delivery Room Air 04/30/22 22:00 05/01/22 00:00 05/01/22 04:00 Temperature 97.9 F Pulse Rate 88 59 L 69 Respiratory Rate 20 Blood Pressure 140/80 Pulse Oximetry 100 Oxygen Delivery 05/01/22 08:05 Temperature Pulse Rate Respiratory Rate Blood Pressure Pulse Oximetry Oxygen Delivery Room Air Intake/Output Intake/Output: Intake & Output 04/28/22 04/29/22 04/30/22 05/01/22 23:59 23:59 23:59 23:59 Intake Total 1000 2360 2820 Balance 1000 2360 2820 Meds/Results Medications: Active Medications Generic Name Dose Route Start Last Admin Trade Name Freq PRN Reason Stop Dose Admin Hydrocodone Bitart/Acetaminophen 1 tab 04/28/22 21:13 Hydrocodone/Acetaminophen (*Crx) 5-325 Mg Tablet PO Q6H PRN Pain Rated 4-6 Amlodipine Besylate 2.5 mg 04/29/22 09:00 05/01/22 10:43 Amlodipine Besylate 2.5 Mg Tablet PO Not Given DAILY JUAN F Atorvastatin Calcium 40 mg 04/29/22 21:00 04/30/22 20:28 Atorvastatin 40 Mg Tablet PO 40 mg HS JUAN F Administration Donepezil HCl 5 mg 04/29/22 21:00 04/30/22 20:29 Donepezil Hcl 5 Mg Tablet PO 5 mg HS JUAN F Administration Famotidine 20 mg 04/29/22 09:00 05/01/22 10:43 Famotidine 20 Mg Tablet PO Not Given Q12HR JUAN F Sodium Chloride 1,000 mls @ 100 mls/hr 04/28/22 21:15 05/01/22 06:32 Normal Saline Iv IV CONT 100 mls/hr .Q10H JUAN F Administration Ceftriaxone Sodium 2 gm/ 100 mls @ 200 mls/hr 04/29/22 01:00 04/30/22 21:14 Sodium Chloride IVPB Infused HS JUAN F Infusion Labetalol HCl 100 mg 04/29/22 09:00 05/01/22 10:43 Labetalol Hcl 1
[2022-05-01 12:00] VITALS: PULSE 68
--- NOTE | 2022-05-01 12:39 | PM.DS ---
DS: Admitting Diagnosis Discharge Date May 01, 2022 Admitting Diagnosis UTI, positive blood cultures DS: Discharge Diagnosis Discharge Diagnosis (1) Dementia: Code(s): F03.90 - Unspecified dementia, unspecified severity, without behavioral disturbance, psychotic disturbance, mood disturbance, and anxiety Status: Acute Assessment and Plan: Stable pending home medication reconciliation (2) Myocardial infarction: Code(s): I21.9 - Acute myocardial infarction, unspecified Status: Acute Assessment and Plan: Patient on labetalol and statin pending home medication reconciliation hx of (3) Major depression: Code(s): F32.9 - Major depressive disorder, single episode, unspecified Status: Acute Assessment and Plan: Stable (4) Hypertension: Code(s): I10 - Essential (primary) hypertension Status: Acute Assessment and Plan: Resume labetalol (5) Hepatitis C: Code(s): B19.20 - Unspecified viral hepatitis C without hepatic coma Status: Acute Assessment and Plan: Patient has abnormal LFT with elevated bilirubin will get ultrasound of the abdomen Will get acute hepatitis panel Hold statin (6) History of CVA (cerebrovascular accident): Code(s): Z86.73 - Personal history of transient ischemic attack (TIA), and cerebral infarction without residual deficits Status: Acute Assessment and Plan: Pending home medication reconciliation (7) Cholelithiasis: Code(s): K80.20 - Calculus of gallbladder without cholecystitis without obstruction Status: Acute Assessment and Plan: no cholecystitis advance diet titrate off abx for this (8) UTI (urinary tract infection): Code(s): N39.0 - Urinary tract infection, site not specified Status: Acute Assessment and Plan: IV Rocephin pending urine culture Positive blood cultures, continue IV antibiotics (9) Urolithiasis: Code(s): N20.9 - Urinary calculus, unspecified Status: Acute Assessment and Plan: CT scan showed bladder stone urology evaluation pending continue empiric IV antibiotics Continue IV hydration (10) SUBHASH (acute kidney injury): Code(s): N17.9 - Acute kidney failure, unspecified Status: Acute Assessment and Plan: IV fluid she reviewed CT scan of the abdomen check CK DS: Summary Hospital Course Hospital Course: patient is a 58-year-old female came with UTI. Also have found have a bladder stone on CT scan. Urology was consulted and ultimately retrieve the stone. Patient never developed sepsis. Vital signs remained stable. Her blood cultures did also turned positive. Cultures positive for Proteus. Patient be discharged on 7 more days Omnicef. Time Spent with Patient Time attestation: Total time spent providing and/or coordinating discharge services: Exam Narrative: GENERAL: Looks weak HEAD: Normocephalic, atraumatic. NECK: Supple. No adenopathy, no masses. RESPIRATORY: Airway patent, respirations nonlabored. Clear to auscultation bilaterally, no rales, rhonchi, wheezing. CARDIOVASCULAR: Regular rate and rhythm without murmurs, rubs, or gallops. Peripheral pulses 2+ and equal bilaterally. ABDOMINAL: Suprapubic tenderness right hypochondrial tenderness. MUSCULOSKELETAL: Negative lower extremity edema. SKIN: Warm, dry, normal color. No rashes. NEURO: A&O moves all extremities PSYCHIATRIC: Appropriate mood and affect. Normal interaction. DS: Data Data Completed and Pending Pending studies at discharge: Pending at discharge 05/01/22 12:27 Surgical [PTH] Routine Labs on day of discharge: Labs from last 24 hours 05/01/22 05/01/22 05:48 05:48 WBC 3.8 L RBC 3.35 L Hgb 9.9 L Hct 30.3 L MCV 90.4 MCH 29.6 MCHC 32.7 RDW 14.4 Plt Count 40 L MPV 11.8 H Immature Gran % (Auto) 0.8 H Neut % (Auto) 75.8 H Lymph % (Auto) 11.7 L Pepin % (Auto) 9.9
--- NOTE | 2022-05-01 14:36 | W.PM.PROC2 ---
Procedure Note - Detailed Date of Procedure 05/01/22 Pre-op Diagnosis bladder stone Post-op Diagnosis Same Procedure Performed cystoscopy removal bladder stone Surgeon Eric Metzger MD Anesthesia None Indications this will with a bladder stone on CT scan. I obtained consent from her family for removal at the bedside Findings bladder stone removed without complication Description of Procedure she has dementia not consent double. Her family was present at the bedside. They gave consent for the procedure. No anesthesia was needed. She was prepped and draped in frog-leg position. I performed flexible cystoscopy. Brief examination of the bladder revealed no significant abnormalities. A stone was seen within the bladder. It was grasped with a basket and removed its entirety. the stone measured approximately 8 mm. this was done with assistance of a nurse in the patient's room with a bedside flexible cystoscopy Implants none Estimated Blood Loss 0 Condition Stable
[2022-05-01 14:51] VITALS: BP 117/70; PULSE 82; RESP 16; TEMP 36.2; O2SAT 98
[2022-05-01 15:39] LABS: EDCOVIDSCREEN Negative (Negative)
[2022-05-03 15:00] LABS: Hepatitis C RNA, Quant PCR <15 IU/mL
== END 2022-05-01 16:40 | disposition home or self-care (01) | DRG 683 ==
LOC: ANHED 18:52 → ANH3MED 21:42
PROVIDERS: Admitting Provider Internal Medicine; Emergency Provider Emergency Medicine; PCP Family Medicine; Visit Provider Chiropractor
DX: N17.9 Acute kidney failure, unspecified (principal); N39.0 Urinary tract infection, site not specified; N21.0 Calculus in bladder; F03.90 Unspecified dementia, unspecified severity, without behavioral disturbance, psychotic disturbance, mood disturbance, and anxiety; F32.A Depression, unspecified; I10 Essential (primary) hypertension; B19.20 Unspecified viral hepatitis C without hepatic coma; Z20.822 Contact with and (suspected) exposure to COVID-19; K80.20 Calculus of gallbladder without cholecystitis without obstruction; I25.2 Old myocardial infarction; Z86.73 Personal history of transient ischemic attack (TIA), and cerebral infarction without residual deficits; Z79.899 Other long term (current) drug therapy
CPT/HCPCS: 36415; 72192; 74018; 74176; 76705; 80053; 80074; 81001; 82140; 82365; 82550; 83605; 83690; 84443; 85025; 85055; 85610; 85730; 86140; 87040; 87077; 87086; 87186; 87426; 87522; 88300; 96361; 96365; 96374; 99285; A9270; C9803; G0378; J0696; J2270; J7030; U0003; U0005

== ENCOUNTER 2022-05-27 08:50 | Inpatient (IN) | payer MEDICARE, MEDICAID, SELFPAY ==
[2022-05-27] VITALS (11 sets, daily range): BP systolic 100–173; BP diastolic 50–75; PULSE 40–74; RESP 16–18; TEMP 36–36.7; O2SAT 95–100; BMI 19.1
--- NOTE | ~2022-05-27 | XR_ITS ---
EXAMINATION: XR chest 2V DATE: 05/27/2022 09:33 INDICATION: Syncope. Bradycardia. TECHNIQUE: Frontal and lateral views of the chest were obtained. COMPARISON: CT abdomen and pelvis 04/28/2022 FINDINGS: There is no pneumonia, pleural effusion, or pneumothorax. Cardiomegaly is noted. IMPRESSION: 1. Cardiomegaly. Reviewed, dictated and finalized at location A. ESS STEAMER TENDER IMPRESSION: 1. Cardiomegaly.
--- NOTE | ~2022-05-27 | CT_ITS ---
EXAMINATION: CT brain wo con DATE: 05/27/2022 09:23 INDICATION: Syncope. TECHNIQUE: Computed tomography (CT) of the head was performed without intravenous contrast. The mA wa s adjusted according to patient size. Iterative reconstruction technique was employed. The dose-lengt h product was 605.33 mGy-cm. COMPARISON: Head CT 01/09/2022 FINDINGS: There is old infarct in right cerebellum. There are old infarcts in the michael and bilateral thalami and basal ganglia. There are scattered areas of low attenuation in the cerebral white matter. There are areas of cystic encephalomalacia in the cerebral white matter bilaterally. There is no int racranial hemorrhage, acute infarction, or abnormal intracranial mass lesion. There is mild ex vacuo dilatation of right lateral ventricle. The paranasal sinuses are clear. There is a left mastoid effus ion. The orbits are normal. IMPRESSION: 1. Old infarcts involving the michael, bilateral thalami, bilateral basal ganglia, right cerebellum, and bilateral cerebral white matter. 2. Stable extensive nonspecific cerebral white matter disease, which likely represents chronic small vessel ischemic disease. Reviewed, dictated and finalized at location A. ICITY EXPERT IMPRESSION: 1. Old infarcts involving the michael, bilateral thalami, bilateral basal ganglia, right cerebellum, and bilateral cerebral white matter. 2. Stable extensive nonspecific cerebral white matter disease, which likely rep resents chronic small vessel ischemic disease.
--- NOTE | ~2022-05-27 | US_ITS ---
EXAMINATION: US carotid duplex BI DATE: 05/29/2022 09:43 INDICATION: Syncope. TECHNIQUE: Grayscale, color Doppler, and pulsed Doppler images of the cervical carotid arteries were obtained. The degree of vessel stenosis is placed in one of the following categories: normal, <50%, 5 0-69%, >=70% but less than near-occlusion, near-occlusion, or total occlusion. Note that percent sten osis relative to normal distal artery lumen diameter is indirectly measured from velocity measurement s as described by Cody, et al. Radiology 2003; [id number]. COMPARISON: None. FINDINGS: RIGHT: The right common carotid artery (CCA) peak systolic velocity (PSV) is 53 cm/s. The right internal car otid artery (ICA) PSV is 100 cm/s. The right ICA end-diastolic velocity (EDV) is 27 cm/s. The right I CA/CCA PSV ratio is 1.9. Grayscale and color Doppler images yield an estimate of <50% diameter reduct ion from plaque in the ICA. There is antegrade flow in the right vertebral artery. LEFT: The left CCA PSV is 53 cm/s. The left ICA PSV is 76 cm/s. The left ICA EDV is 20 cm/s. The left ICA/C CA PSV ratio is 1.4. Grayscale and color Doppler images yield an estimate of <50% diameter reduction from plaque in the ICA. There is retrograde flow in the left vertebral artery. IMPRESSION: 1. <50% stenosis in the right internal carotid artery. 2. <50% stenosis in the left internal carotid artery. 3. Retrograde flow in left vertebral artery, consistent with subclavian steal. This finding is most c ommonly secondary to stenosis or occlusion of proximal left subclavian artery. Reviewed, dictated and finalized at location A. M SPECIALIST IMPRESSION: 1. <50% stenosis in the right internal carotid artery. 2. <50% stenosis in the left internal carotid artery. 3. Retrograde flow in left vertebral artery, consistent with subclavian steal. This finding is most commonly secondary to stenosis or occlusion of proximal le ft subclavian artery.
--- NOTE | 2022-05-27 09:05 | ECG_ITS ---
Measurements Intervals [place] Rate: 42 P: -1 WV: 160 QRS: 17 QRSD: 84 T: 112 QT: 457 QTc: 385 Interpretive Statements SINUS BRADYCARDIA CONSIDER ANTEROSEPTAL INFARCT, AGE INDETERMINATE T WAVE ABNORMALITY IN ANTEROLATERAL LEADS- CONSIDER ISCHEMIA ABNORMAL ECG NO PREVIOUS ECG AVAILABLE FOR COMPARISON Electronically Signed On 05-28-2022 7:27:48 PRODUCT MANAGEMENT INTERN by Goldy Hebert D.O.
--- NOTE | 2022-05-27 09:08 | ED.SYNCOPE ---
HPI - Syncope General Chief Complaint: Syncope <Joelle Shaver PA-C - Last Filed: 05/27/22 14:17> Stated Complaint: syncopal episode <Joelle Shaver PA-C - Last Filed: 05/27/22 14:17> Time Seen by Provider: 05/27/22 08:59 <Joelle Shaver PA-C - Last Filed: 05/27/22 14:17> History of Present Illness HPI narrative: Patient is a 66-year-old female with history of prior CVA, old [place], dementia, here for evaluation from [facility] for an episode of unresponsiveness. According to staff, patient was unresponsive for 10 minutes with clammy hands and a low heart rate. Patient came to shortly afterwards and is at her baseline currently, which is nonverbal but alert. When asked if she has any complaints she shakes her head no. She is a DO NOT RESUSCITATE. Per chart review, she was hospitalized at the beginning of April for a UTI and a bladder stone, which she had removed. <Joelle Shaver PA-C - Last Filed: 05/27/22 14:17> Related Data Home Medications: Home Medications Medication Instructions Recorded Confirmed acetaminophen 325 mg tablet 325 mg PO PRN 04/28/22 04/28/22 (Tylenol) alendronate 70 mg tablet (Fosamax) 70 mg PO WEEKLY 04/28/22 04/28/22 amlodipine 2.5 mg tablet (Norvasc) 2.5 mg PO DAILY 04/28/22 04/28/22 atorvastatin 40 mg tablet (Lipitor) 40 mg PO HS 04/28/22 04/28/22 cholecalciferol (vitamin D3) 25 25 mcg PO DAILY 04/28/22 04/28/22 mcg (1,000 unit) tablet (Vitamin D3) donepezil 5 mg tablet (Aricept) 5 mg PO HS 04/28/22 04/28/22 labetalol 100 mg tablet 100 mg PO BID 04/28/22 04/28/22 memantine 10 mg tablet (Namenda) 10 mg PO BID 04/28/22 04/28/22 polyethylene glycol 3350 17 gram 17 g PO DAILY 04/28/22 04/28/22 oral powder packet (Miralax) sennosides 8.6 mg-docusate sodium 8.5 - 50 tablet PO HS 04/28/22 04/28/22 50 mg tablet (Senna Plus) sertraline 50 mg tablet (Zoloft) 50 mg PO DAILY 04/28/22 04/28/22 <Joelle Shaver PA-C - Last Filed: 05/27/22 14:17> Allergies/Adverse Reactions: Allergies Allergy/AdvReac Type Severity Reaction Status Date / Time lisinopril Allergy Unknown Verified 05/27/22 14:46 <Joelle Shaver PA-C - Last Filed: 05/27/22 14:17> Review of Systems Review of Systems: ROS unobtainable: Yes unobtainable due to mental status <OREN Singh Last Filed: 05/27/22 14:17> [facility] Past Medical History Medical History: Medical History (Updated 05/27/22 @ 13:13 by Fara Friedman NP) Anxiety Dementia Hepatitis C History of CVA (cerebrovascular accident) Hypertension Major depression Myocardial infarction Osteoporosis <Joelle Shaver PA-C - Last Filed: 05/27/22 14:17> Surgical History Surgical History: Surgical History (Updated 05/27/22 @ 13:13 by Fara Friedman NP) H/O cystoscopy H/O: hysterectomy History of percutaneous coronary intervention S/P hip replacement <Joelle Shaver PA-C - Last Filed: 05/27/22 14:17> Family History Family History: Family History (Updated 05/27/22 @ 13:10 by Fara Friedman NP) Sibling Acute myocardial infarction <Joelle Shaver PA-C - Last Filed: 05/27/22 14:17> Social History Social History: Social History (Updated 05/27/22 @ 13:11 by Fara Friedman NP) 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 Head: Normocephalic and atraumatic. EYES: PERRLA/EOMI, conjunctivae clear NOSE: No nasal drainage EARS: External ear normal in appearance THROAT: Oropharynx is clear. Mucous membranes are moist. NECK: Supple. No adenopathy, no masses. RESPIRATORY: Airway patent, respirations nonlabored. Clear to au
[2022-05-27 09:59] LABS: Basophils Absolute Auto 0.1 K/mm3 (0.0-0.1); Basophils Percent Auto 1.1 % (0.2-1.2); Eosinophils Absolute Auto 0.1 K/mm3 (0-0.3); Eosinophils Percent Auto 1.7 % (0-4.4); Hematocrit 35.9 % (37.0-47.0); Hemoglobin 11.4 g/dL (12.0-15.0); Immature Granulocyte Absolute 0.04 K/mm3 (0.00-0.031); Immature Granulocyte Percent A 0.7 % (0-0.5); Immature Platelet Fraction Pct 6.8 % (0.9-11.2); Lymphocytes Absolute Auto 0.99 K/mm3 (0.9-3.2); Lymphocytes Percent Auto 18.3 % (18.3-44.2); Mean Corpuscular HGB Conc 31.8 g/dl (32-36); Mean Corpuscular Hemoglobin 30.1 pg (26-34); Mean Corpuscular Volume 94.7 fl (80-100); Mean Platelet Volume 11.7 fl (7.4-10.4); Monocytes Absolute Auto 0.3 K/mm3 (0.1-0.6); Monocytes Percent Auto 6.3 % (2.6-8.5); Neutrophils Absolute Auto 3.9 K/mm3 (1.3-6.7); Neutrophils Percent Auto 71.9 % (45.5-73.1); Platelet Count Result 62 k/mm3 (150-375); Red Blood Count 3.79 M/mm3 (4.2-5.4); Red Cell Distribution Width 14.6 % (11.5-14.5); White Blood Count 5.4 K/mm3 (4.5-10.0)
[2022-05-27 10:11] LABS: Alanine Aminotransferase 17 U/L (6-35); Alkaline Phosphatase 64 U/L (38-126); Anion Gap 5 mmol/L (8-16); Aspartate Amino Transferase 35 U/L (14-36); Bilirubin,Total 1.3 mg/dL (0.2-1.3); Blood Urea Nitrogen 18 mg/dL (7-17); Calcium 9.1 mg/dL (8.4-10.2); Carbon Dioxide 28 mmol/L (22-30); Chloride 104 mmol/L (98-107); Estimated CRCL calculation 31 ml/min; Estimated Glomerular Filt Rate 41; Glucose 109 mg/dL (65-110); Potassium 4.9 mmol/L (3.4-5.0); Sodium 137 mmol/L (137-145)
[2022-05-27 10:23] LABS: NT Pro B Type Natriuretic Pept 5200 pg/mL (5-100); Troponin I 0.017 ng/mL (0.000-0.034)
[2022-05-27 10:32] LABS: Influenza A QL RT-PCR Negative (Negative); Influenza B QL RT-PCR Negative (Negative); SARS-CoV-2 RNA PCR Positive
[2022-05-27 12:52] LABS: Add Urine Microscopic? YES; Appearance Urine Cloudy (Clear); Bilirubin Urine Negative (Negative); Blood Urine 2+ (Negative); Color Urine Yellow (Yellow); Glucose Urine UA Negative (Negative); Ketones Urine Negative (Negative); Leukocyte Esterase Ur 3+ LEU/UL (Negative); Nitrate Urine Positive (Negative); Protein Urine 1+ mg/dL (Negative); Urobilinogen Urine 0.2 mg/dL (<2.0); pH Urine 7.5 (5.0-9.0)
[2022-05-27 12:54] LABS: Bacteria Urine 2+ /hpf; Mucus Urine Heavy /lpf; RBC Urine 21-50 /hpf (0-2); WBC Urine 51-75 /hpf
--- NOTE | 2022-05-27 13:07 | PM.IMHP ---
H&P: HPI History of Present Illness Date/Time: 05/27/22 13:07 Chief Complaint: Syncope Narrative: This is a 66-year-old female patient who resides at [facility]. Her is at the bedside answering questions. She has had multiple CVAs in the past and now has dementia. According to the staff at [facility] the patient became unresponsive for approximately 10 minutes. The patient became bradycardic and had clammy hands at that time. The patient denies any chest pain or shortness of breath. The patient is a DNR. The patient was recently discharged from this hospital 05/01/22 for UTI. She also had a cystoscopy with removal bladder stone on 05/01/[address] Metzger. Today the patient's EKG was read as sinus bradycardia anterior septal myocardial infarction of indeterminate age. H&H is 11.4 and 35.9. Her BUN is 18 creatinine 1.3. Which is stable when she has had her baseline. Troponin x2 are nonreactive BNP 5002. The patient is found to be positive for UTI. The patient was negative for influenza A/B but was positive for COVID. The patient was started on ceftriaxone. The patient is being admitted to observation status on the date of service of 05/27/2022. Review of Systems Review of Systems: See HPI All systems reviewed & are unremarkable except as noted in HPI and below Constitutional: Constitutional: Reports as per HPI and Reports no additional constitutional complaints Eyes: Eyes: Reports as per HPI and Reports no additional eye complaints ENT: Reports system reviewed and no additional complaints, except as documented and Reports Normal hearing present Cardiovascular: Cardiovascular: Reports no additional cardiovascular complaints Respiratory: Respiratory: Reports no additional respiratory complaints and Reports no additional respiratory complaints Gastrointestinal: Gastrointestinal: Reports as per HPI and Reports no additional gastrointestinal complaints Musculoskeletal: Musculoskeletal: Reports no additional musculoskeletal complaints Integumentary/Breasts: Skin/Breast: Reports system reviewed and no additional complaints, except as docu and Reports as per HPI Neurologic: Reports system reviewed and no additional complaints, except as documented, Reports as per HPI and Reports Normal hearing present Psychiatric: Psychiatric: Reports no additional psychiatric complaints and Reports as per HPI Endocrine: Endocrine: Reports no additional endocrine complaints Hematologic/Lymphatic: Hematologic/Lymphatic: Reports no additional hematologic/lymphatic complaints Allergic/Immunologic: Allergic/Immunologic: Reports no additional allergic/immunologic complaints [facility] Past Medical History Medical History (Updated 05/27/22 @ 17:43 by Fara Friedman NP) Anxiety Dementia Hepatitis C History of CVA (cerebrovascular accident) Hyperlipidemia Hypertension Major depression Myocardial infarction Osteoporosis Surgical History Surgical History H/O cystoscopy H/O: hysterectomy History of percutaneous coronary intervention S/P hip replacement Family History Family History Sibling Acute myocardial infarction Social History Social History (Updated 05/27/22 @ 17:32 by Fara Friedman NP) Social History: The patient is . Her is the durable power aeroplane pilot for healthcare. She has 2 sons. 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 She does not take any alcohol. Code status DNR Smoking status: Former smoker Alcohol intake: never Substance use: never Substance use type: does not use Spiritual care concerns: No Meds Home Medications and Allergies Home Medications Medication Instructions Recorded Confirmed Type acetaminophen 325 mg tablet 650 mg PO PRN PRN Pain 04/28/22 05/27/22 History (Tylenol) alendronate 70 mg tablet (Fosam
[2022-05-27 13:13] LABS: Troponin I 0.016 ng/mL (0.000-0.034)
--- NOTE | 2022-05-27 14:13 | ADMGEN ---
This patient, Ursula Zapata, was admitted to Medical Room 241-. Patient/family oriented to hospital policies and general routines including ID bracelet, bed and alarms, visiting hours, pain management, procedures, bathroom and other care routines, personal items, smoking policy, room service/diet, and visiting hours. Information on how to activate the Rapid Response Team has been discussed. Patient/Family are encouraged to report perceived risks to care and to ask questions if they do not understand what they are told or what they should do.
[2022-05-27] MEDS: MEMANTINE 10 MG TABLET PO (20:26)
[2022-05-27] MEDS: ATORVASTATIN 40 MG TABLET PO (20:26)
[2022-05-27] MEDS: SACCHAROMYCES BOULARDII 250 MG CAPSULE PO (20:26)
[2022-05-27] MEDS: FAMOTIDINE 10 MG TABLET PO (20:26)
[2022-05-27] MEDS: DONEPEZIL HCL 5 MG TABLET PO (20:26)
[2022-05-28] VITALS (8 sets, daily range): BP systolic 100–149; BP diastolic 62–87; PULSE 53–97; RESP 14–16; TEMP 36.3–36.9; O2SAT 96–98
[2022-05-28 05:47] LABS: Basophils Percent Auto 0.9 % (0.2-1.2); Eosinophils Absolute Auto 0.1 K/mm3 (0-0.3); Eosinophils Percent Auto 1.9 % (0-4.4); Hematocrit 31.8 % (37.0-47.0); Hemoglobin 10.2 g/dL (12.0-15.0); Immature Granulocyte Absolute 0.03 K/mm3 (0.00-0.031); Immature Granulocyte Percent A 0.7 % (0-0.5); Immature Platelet Fraction Pct 6.1 % (0.9-11.2); Lymphocytes Absolute Auto 1.04 K/mm3 (0.9-3.2); Lymphocytes Percent Auto 24.4 % (18.3-44.2); Mean Corpuscular HGB Conc 32.1 g/dl (32-36); Mean Corpuscular Hemoglobin 29.1 pg (26-34); Mean Corpuscular Volume 90.9 fl (80-100); Mean Platelet Volume 11.9 fl (7.4-10.4); Monocytes Absolute Auto 0.3 K/mm3 (0.1-0.6); Monocytes Percent Auto 7.7 % (2.6-8.5); Neutrophils Absolute Auto 2.7 K/mm3 (1.3-6.7); Neutrophils Percent Auto 64.4 % (45.5-73.1); Platelet Count Result 47 k/mm3 (150-375); Red Cell Distribution Width 14.4 % (11.5-14.5); White Blood Count 4.3 K/mm3 (4.5-10.0)
[2022-05-28] MEDS: ALENDRONATE SODIUM 70 MG TABLET PO (06:25)
[2022-05-28 07:46] LABS: Alanine Aminotransferase 15 U/L (6-35); Albumin Level 3.5 g/dL (3.5-5.1); Alkaline Phosphatase 59 U/L (38-126); Anion Gap 5 mmol/L (8-16); Aspartate Amino Transferase 29 U/L (14-36); Bilirubin,Total 0.7 mg/dL (0.2-1.3); Blood Urea Nitrogen 20 mg/dL (7-17); Calcium 8.6 mg/dL (8.4-10.2); Carbon Dioxide 28 mmol/L (22-30); Chloride 101 mmol/L (98-107); Estimated CRCL calculation 29 ml/min; Estimated Glomerular Filt Rate 41; Glucose 85 mg/dL (65-110); Magnesium 1.9 mg/dL (1.6-2.3); Phosphorus 3.8 mg/dL (2.5-4.5); Potassium 4.4 mmol/L (3.4-5.0); Sodium 134 mmol/L (137-145)
[2022-05-28 07:54] LABS: Platelet Estimate Decreased (Adequate)
[2022-05-28 07:55] LABS: Ovalocytes 1+ (NORMAL); Poikilocytosis 1+ (NORMAL); Schistocytes None Seen (NORMAL)
[2022-05-28] MEDS: CHOLECALCIFEROL 1,000 UNITS TABLET 1000 UNITS PO (08:33)
[2022-05-28] MEDS: FAMOTIDINE 10 MG TABLET PO ×2 (08:33→17:37)
[2022-05-28] MEDS: MEMANTINE 10 MG TABLET PO ×2 (08:34→17:37)
[2022-05-28] MEDS: SACCHAROMYCES BOULARDII 250 MG CAPSULE PO ×2 (08:34→17:37)
[2022-05-28] MEDS: POTASSIUM CHLORIDE 20 MEQ TABLET.ER PO (08:34)
[2022-05-28] MEDS: SERTRALINE HCL 25 MG TABLET 75 MG PO (08:34)
[2022-05-28] MEDS: amLODIPine BESYLATE 2.5 MG TABLET PO (08:36)
--- NOTE | 2022-05-28 10:38 | PM.IMPN ---
Progress Note: A&P Assessment and Plan (1) Syncope: Code(s): R55 - Syncope and collapse Status: Acute Assessment and Plan: Question related to bradycardia. Beta-homero has been stopped. Asymptomatic now. Heart rates maintain between 55 and 75. Monitor (2) Bradycardia: Code(s): R00.1 - Bradycardia, unspecified Status: Acute Assessment and Plan: Beta-homero has been stopped (3) Major depression: Code(s): F32.9 - Major depressive disorder, single episode, unspecified Status: Acute (4) Hypertension: Code(s): I10 - Essential (primary) hypertension Status: Acute (5) Dementia: Code(s): F03.90 - Unspecified dementia, unspecified severity, without behavioral disturbance, psychotic disturbance, mood disturbance, and anxiety Status: Acute (6) History of CVA (cerebrovascular accident): Code(s): Z86.73 - Personal history of transient ischemic attack (TIA), and cerebral infarction without residual deficits Status: Acute (7) Anxiety: Code(s): F41.9 - Anxiety disorder, unspecified Status: Acute (8) Hyperlipidemia: Code(s): E78.5 - Hyperlipidemia, unspecified Status: Acute (9) COVID: Code(s): U07.1 - COVID-19 Status: Acute Subjective Date/time seen: 05/28/22 10:38 No complaints on, heart rate improved Exam Const: General: cooperative, comfortable, no acute distress, well developed, alert, awake, Physically active, ill appearing, average body habitus and well nourished Nutritional Appearance: average body habitus and well nourished Orientation/consciousness: oriented to person, oriented to place, oriented to time and patient oriented x3 HENMT: Head: normal to inspection, No palpable skull fracture present, normocephalic and atraumatic Ears: hearing grossly normal bilaterally and external ears normal Face/Nose/Sinus: Normal external nose present and Normal nares present Eyes: General: appearance normal, both eyes and all related structures Alignment and Position: alignment normal Periorbital: periorbital findings normal Eyelids: eyelids normal Sclera: sclerae normal Pupils: Equal, round and reactive pupils present EOM: EOMs intact bilaterally Neck: Neck: normal visual inspection, full ROM, no lymphadenopathy, trachea midline and supple Chest: Chest palpation & inspection: normal inspection of the chest Resp: Effort & Inspection: normal respiratory effort Cardio: Palpation: normal PMI Rate: bradycardic Rhythm: regular rhythm Heart sounds: S1 normal heart sound present, S2 normal heart sound present and Murmur heart sound present diastolic Peripheral pulses: Peripheral pulses 2+ throughout GI: Inspection: normal to inspection Auscultation: normal bowel sounds Rectal Exam: deferred Back/Spine/Pelvis: Cervical Spine: cervical ROM normal Skin: General skin exam: normal color Lesions: no lesions Rashes: no rashes Trauma: no lacerations or abrasions Wounds: no wounds Hair: normal Nails: normal Neuro: General: oriented to person, oriented to place, oriented to time and patient oriented x3 Cranial nerves: Yes Equal, round and reactive pupils present and Yes Normal hearing present Cognition (Neuro): normal cognition Speech: normal speech Motor exam (neuro): 5/5 motor strength present throughout Sensory Exam: normal sensation Extrem: General: normal to inspection Right upper extremity: normal to inspection and shoulder/upper arm Left upper extremity: normal to inspection and shoulder/upper arm Right lower extremity: normal to inspection Left lower extremity: normal to inspection Psych: Appearance: grossly normal Speech and movement: Clear speech present Affect: normal affect Attitude: cooperative Thought process: Normal thought process present Insight: Limited insight present (Psych) Judgement: Limited judgement present (Psych) Objective Data Vital Signs Vital Signs: Vital Signs
[2022-05-28] MEDS: ATORVASTATIN 40 MG TABLET PO (20:14)
[2022-05-28] MEDS: DONEPEZIL HCL 5 MG TABLET PO (20:14)
[2022-05-29] VITALS (9 sets, daily range): BP systolic 110–132; BP diastolic 66–84; PULSE 52–68; RESP 16–18; TEMP 36.1–36.8; O2SAT 94–98
--- NOTE | 2022-05-29 | ECHO_ITS ---
Patient Info Name: Ursula Zapata Age: 66 years : 1955 Gender: Female Ht: 63 in Wt: 108 lbs BSA: 1.47 m2 HR: 66 bpm BP: 149 / 69 mmHg Heart Rhythm: Sinus Rhythm Technical Quality: Fair Exam Date: 05/29/2022 1:36 PM Exam Location: [facility] Pulmonary Exam Room: 241 Patient Status: Inpatient Admit Date: 05/27/2022 Staff Ordering Physician: Fara Friedman NP Orthopedic Designer: Carole Chang RCS Attending Provider: Alexx Zamora MD Referring Physician: Elder DURAND; Exam Type: CA echo doppler color flow Study Info Indications - AORTIC MURMUR Complete two-dimensional, color flow and Doppler transthoracic echocardiogram is performed. Summary 1. Complete two-dimensional, color flow and Doppler transthoracic echocardiogram is performed. 2. Left ventricular systolic function is normal, estimated at 55-60%. 3. There is mildly increased left ventricular wall thickness. 4. The left ventricular diastolic function is grade I diastolic dysfunction. 5. Right ventricular systolic function is normal. 6. Left atrial chamber dimension is severely enlarged. 7. The aortic valve is not well visualized. 8. There is mild to moderate aortic valve stenosis with a peak velocity of 262 cm/s, mean gradient of 16 mmHg, and aortic valve area of 1.3 cm2. 9. There is moderate aortic valve calcification. 10. The mitral valve has thickened leaflets. 11. There is mild to moderate mitral valve regurgitation. 12. The mitral valve annulus is severely calcified. Left Ventricle Left ventricular chamber dimension is normal. Left ventricular systolic function is normal, estimated at 55-60%. There is mildly increased left ventricular wall thickness. The left ventricular diastolic function is grade I diastolic dysfunction. Right Ventricle Right ventricular chamber dimension is normal. Right ventricular systolic function is normal. Left Atria Left atrial chamber dimension is severely enlarged. Right Atria Right atrial chamber dimension is normal. Atrial Septum Intact interatrial septum visualized by color flow imaging. Aortic Valve The aortic valve is not well visualized. There is mild to moderate aortic valve stenosis with a peak velocity of 262 cm/s, mean gradient of 16 mmHg, and aortic valve area of 1.3 cm2. There is no aortic valve regurgitation. There is moderate aortic valve calcification. Pulmonic Valve The pulmonic valve is not well visualized. Mitral Valve The mitral valve has thickened leaflets. There is mild to moderate mitral valve regurgitation. The mitral valve annulus is severely calcified. Tricuspid Valve There is mild tricuspid valve regurgitation. Pericardium/Pleural There is trivial pericardial effusion. Left Ventricular Outflow Tract Name Value Normal LVOT 2D LVOT Diameter 1.9 cm LVOT Doppler LVOT Peak Gradient 5 mmHg LVOT Mean Gradient 3 mmHg LVOT VTI 22 cm LVOT VTI/AV VTI Ratio 0.5 LVOT Stroke Volume 62 ml LVOT CO
[2022-05-29] MEDS: FAMOTIDINE 10 MG TABLET PO ×2 (08:56→17:04)
[2022-05-29] MEDS: MEMANTINE 10 MG TABLET PO ×2 (08:56→17:04)
[2022-05-29] MEDS: CHOLECALCIFEROL 1,000 UNITS TABLET 1000 UNITS PO (08:56)
[2022-05-29] MEDS: amLODIPine BESYLATE 2.5 MG TABLET PO (08:56)
[2022-05-29] MEDS: SACCHAROMYCES BOULARDII 250 MG CAPSULE PO ×2 (08:57→17:04)
[2022-05-29] MEDS: SERTRALINE HCL 25 MG TABLET 75 MG PO (08:57)
[2022-05-29] MEDS: DONEPEZIL HCL 5 MG TABLET PO (20:47)
[2022-05-29] MEDS: ATORVASTATIN 40 MG TABLET PO (20:47)
[2022-05-30] VITALS: PULSE 59
[2022-05-30 04:00] VITALS: PULSE 48
[2022-05-30 04:40] VITALS: BP 127/80; PULSE 58; RESP 18; TEMP 36.2; O2SAT 96
[2022-05-30 08:00] VITALS: PULSE 64
[2022-05-30] MEDS: POTASSIUM CHLORIDE 20 MEQ TABLET.ER PO (09:00)
[2022-05-30] MEDS: FAMOTIDINE 10 MG TABLET PO (09:00)
[2022-05-30] MEDS: SACCHAROMYCES BOULARDII 250 MG CAPSULE PO (09:00)
[2022-05-30] MEDS: SERTRALINE HCL 25 MG TABLET 75 MG PO (09:00)
[2022-05-30] MEDS: amLODIPine BESYLATE 2.5 MG TABLET PO (09:00)
[2022-05-30] MEDS: MEMANTINE 10 MG TABLET PO (09:00)
[2022-05-30] MEDS: CHOLECALCIFEROL 1,000 UNITS TABLET 1000 UNITS PO (09:00)
--- NOTE | 2022-05-30 11:24 | PM.DS ---
DS: Admitting Diagnosis Discharge Date May 30, 2021 Admitting Diagnosis Syncope DS: Discharge Diagnosis Discharge Diagnosis (1) Syncope: Code(s): R55 - Syncope and collapse Status: Acute Assessment and Plan: Question related to bradycardia. Beta-homero has been stopped. Asymptomatic now. Heart rates maintain between 55 and 75. Monitor (2) Bradycardia: Code(s): R00.1 - Bradycardia, unspecified Status: Acute Assessment and Plan: Beta-homero has been stopped (3) Major depression: Code(s): F32.9 - Major depressive disorder, single episode, unspecified Status: Acute (4) Hypertension: Code(s): I10 - Essential (primary) hypertension Status: Acute (5) Dementia: Code(s): F03.90 - Unspecified dementia, unspecified severity, without behavioral disturbance, psychotic disturbance, mood disturbance, and anxiety Status: Acute (6) History of CVA (cerebrovascular accident): Code(s): Z86.73 - Personal history of transient ischemic attack (TIA), and cerebral infarction without residual deficits Status: Acute (7) Anxiety: Code(s): F41.9 - Anxiety disorder, unspecified Status: Acute (8) Hyperlipidemia: Code(s): E78.5 - Hyperlipidemia, unspecified Status: Acute (9) COVID: Code(s): U07.1 - COVID-19 Status: Acute DS: Summary Hospital Course Hospital Course: 58-year-old female came with syncope. Likely related to dehydration UTI and possibly related to bradycardia. The beta loss put put on hold and will be DC on discharge. Otherwise patient has not had any episodes in the hospital. Heart rates remained between 50 and 70. She feels good she can be discharged Time Spent with Patient Time attestation: Total time spent providing and/or coordinating discharge services: Exam Const: General: cooperative, comfortable, no acute distress, well developed, alert, awake, Physically active, ill appearing, average body habitus and well nourished Nutritional Appearance: average body habitus and well nourished Orientation/consciousness: oriented to person, oriented to place, oriented to time and patient oriented x3 HENMT: Head: normal to inspection, No palpable skull fracture present, normocephalic and atraumatic Ears: hearing grossly normal bilaterally and external ears normal Face/Nose/Sinus: Normal external nose present and Normal nares present Eyes: General: appearance normal, both eyes and all related structures Alignment and Position: alignment normal Periorbital: periorbital findings normal Eyelids: eyelids normal Sclera: sclerae normal Pupils: Equal, round and reactive pupils present EOM: EOMs intact bilaterally Neck: Neck: normal visual inspection, full ROM, no lymphadenopathy, trachea midline and supple Chest: Chest palpation & inspection: normal inspection of the chest Resp: Effort & Inspection: normal respiratory effort Cardio: Palpation: normal PMI Rate: bradycardic Rhythm: regular rhythm Heart sounds: S1 normal heart sound present, S2 normal heart sound present and Murmur heart sound present diastolic Peripheral pulses: Peripheral pulses 2+ throughout GI: Inspection: normal to inspection Auscultation: normal bowel sounds Rectal Exam: deferred Back/Spine/Pelvis: Cervical Spine: cervical ROM normal Skin: General skin exam: normal color Lesions: no lesions Rashes: no rashes Trauma: no lacerations or abrasions Wounds: no wounds Hair: normal Nails: normal Neuro: General: oriented to person, oriented to place, oriented to time and patient oriented x3 Cranial nerves: Yes Equal, round and reactive pupils present and Yes Normal hearing present Cognition (Neuro): normal cognition Speech: normal speech Motor exam (neuro): 5/5 motor strength present throughout Sensory Exam: normal sensation Extrem: General: normal to inspection Right upper extremity: normal to inspection and shoulder/upper
[2022-05-30 14:00] VITALS: BP 92/62; PULSE 62; RESP 18; TEMP 37.4; O2SAT 97
[2022-05-30 14:04] VITALS: BP 92/62
--- NOTE | 2022-05-30 15:12 | PC.NURSE ---
report called and orders faxed
== END 2022-05-30 16:23 | DRG 308 ==
LOC: ANHED 11:45 → ANH2MED 13:27
PROVIDERS: Nurse Practitioner; Physician Assistant; Admitting Provider Internal Medicine; Emergency Provider Emergency Medicine; PCP Family Medicine; Visit Provider Chiropractor
DX: R00.1 Bradycardia, unspecified (principal); U07.1 COVID-19; I10 Essential (primary) hypertension; F03.90 Unspecified dementia, unspecified severity, without behavioral disturbance, psychotic disturbance, mood disturbance, and anxiety; Z86.73 Personal history of transient ischemic attack (TIA), and cerebral infarction without residual deficits; F41.9 Anxiety disorder, unspecified; E78.5 Hyperlipidemia, unspecified; M81.0 Age-related osteoporosis without current pathological fracture; F32.9 Major depressive disorder, single episode, unspecified; Z66 Do not resuscitate; Z82.49 Family history of ischemic heart disease and other diseases of the circulatory system; Z87.891 Personal history of nicotine dependence; Z79.899 Other long term (current) drug therapy
CPT/HCPCS: 36415; 70450; 71046; 80053; 81001; 83605; 83735; 83880; 84100; 84443; 84484; 85025; 85055; 87086; 87088; 87636; 93005; 93306; 93880; 96375; 99285; A9270; G0378; J0696

== ENCOUNTER 2023-01-28 09:05 | Inpatient (IN) | payer MEDICARE, MEDICAID, SELFPAY ==
[2023-01-28] VITALS (30 sets, daily range): BP systolic 106–149; BP diastolic 67–92; PULSE 59–75; RESP 13–22; TEMP 36.4–37.2; O2SAT 97–100
--- NOTE | ~2023-01-28 | CT_ITS ---
EXAMINATION: CT facial & cervical spine wo DATE: 01/28/2023 10:43 INDICATION: Head injury TECHNIQUE: Computed tomography (CT) of the maxillofacial region and cervical spine was performed with out intravenous contrast. The dose-length product (DLP) was 163.58 mGy-cm. Automated exposure control and iterative reconstruction technique were employed. COMPARISON: None FINDINGS: MAXILLOFACIAL CT: No facial fracture is identified. The globes and orbits are normal. The soft tissues are unremarkable . There is a small left mastoid effusion. CERVICAL SPINE CT: Bone alignment is normal. There is no fracture. There is mild loss of intervertebral disc space heigh t at C5-C6. The vertebral body heights are maintained. The odontoid process is intact. There is multi level mild facet and uncovertebral joint osteoarthritis. There is a 2 cm nodule of the right thyroid lobe. Mild emphysema is noted in the visualized lung apices. IMPRESSION: 1. No facial fracture identified. 2. Mild cervical spondylosis without acute findings. 3. Right thyroid nodule. Follow-up with nonemergent thyroid ultrasound is recommended for risk strati fication. Reviewed, dictated and finalized at location A. IMPRESSION: 1. No facial fracture identified. 2. Mild cervical spondylosis without acute findings. 3. Right thyroid nodule. Follow-up with nonemergent thyroid ultrasound is recom mended for risk stratification.
--- NOTE | ~2023-01-28 | CT_ITS ---
EXAMINATION: CT brain wo con INDICATION: Head injury COMPARISON: 05/27/2022 TECHNIQUE: Standard unenhanced head CT. The dose-length product (DLP) was 605.33 mGy-cm. The mA was a djusted according to patient size. Iterative reconstruction technique was employed. FINDINGS: No acute intraparenchymal hemorrhage. No evidence of mass lesion. No evidence of acute infa rction. There are old infarcts in the right cerebellum, michael, bilateral thalami, and basal ganglia. T here is moderate periventricular and subcortical hypodensity probably related to small vessel ischemi c disease. There is mild prominence of the sulci and ventricles related to cerebral atrophy. Intracra nial calcified cerebral atherosclerosis is noted. No extra-axial collections. No mass effect or midli ne shift. The orbits and soft tissues are unremarkable. There is minimal opacification of the left ma stoid air cells. IMPRESSION: 1. Areas of prior infarction without acute intracranial abnormality. 2. Age related findings. Reviewed, dictated and finalized at location A.
--- NOTE | ~2023-01-28 | XR_ITS ---
EXAMINATION: XR hip BI 2V w AP pelvis DATE: 01/28/2023 10:56 INDICATION: Pelvic pain after fall TECHNIQUE: AP view of the pelvis and two views of each hip were obtained. COMPARISON: 05/01/2022 FINDINGS: There are changes of right hip arthroplasty. No fracture is identified. There is mild osteo arthritis of the left hip. Phleboliths are noted in the pelvis. IMPRESSION: 1. No acute osseous abnormality. Reviewed, dictated and finalized at location A.
--- NOTE | ~2023-01-28 | CT_ITS ---
Non-contrast CT scan of the Abdomen and Pelvis Clinical indication: Hematuria, UTI Technique: 2.5 mm axial scans were obtained through the abdomen and pelvis without intravenous or or al contrast. Dose reduction technique was used on this scan by utilizing automated exposure control a nd iterative reconstruction technique. The dose-length product (DLP) was 235.45 mGy-cm. COMPARISON: 04/28/2022 Findings: Images through the lung bases reveal no abnormalities. Nodular contour of the liver is compatible cirrhosis. Spleen is upper limits of normal in size. Large calcified gallstone again present. The spleen, pancreas, kidneys, and adrenals appear normal. There are extensive atherosclerotic calcifications of the aorta and iliac vessels.. There is no evidence of bowel obstruction. Images through the pelvis are degraded by streak artifact from right hip arthroplasty. Small to moder ate abdominopelvic ascites present. Urinary bladder unremarkable. No definite adnexal mass seen. Impression: No distinct etiology for hematuria identified. Cirrhotic change of the liver with borderline splenomegaly and small to moderate abdominopelvic ascit es. Cholelithiasis. Reviewed, dictated and finalized at location . Impression: No distinct etiology for hematuria identified. Cirrhotic change of the liver with borderline splenomegaly and small to moderat e abdominopelvic ascites. Cholelithiasis.
--- NOTE | ~2023-01-28 | CT_ITS ---
EXAMINATION: CT thoracic lumbar wo con DATE: 01/28/2023 10:43 INDICATION: Back pain TECHNIQUE: Computed tomography (CT) of the thoracic and lumbar spine was performed without intravenou s contrast. The dose-length product (DLP) was 931.63 mGy-cm. Iterative reconstruction was used. COMPARISON: 04/28/2022 FINDINGS: Thoracic spine: Bone alignment is normal. The vertebral body heights are maintained. There is moderat e loss of intervertebral disc space height at T7-8, T9, and T11-12. There is mild chronic inferior en dplate deformity in the posterior aspect of T11. No acute fracture is identified. A small volume of a scites is noted in the left upper quadrant. Lumbar spine: There is mild loss of intervertebral disc space height at L4-5. Bone alignment is dale l. There is no fracture. The vertebral body heights are maintained. There is calcified atherosclerosi s of the aorta and many of the other arteries. Colonic diverticulosis is present without evidence of diverticulitis. IMPRESSION: 1. Moderate thoracic spondylosis without acute findings. 2. Mild lumbar spondylosis without acute findings. Reviewed, dictated and finalized at location A.
--- NOTE | 2023-01-28 10:13 | ED.GENADULT ---
HPI - General Adult General Chief complaint: Back Pain/Injury <Alex Zayas PA-C - Last Filed: 01/28/23 16:40> Stated complaint: backpain/weakness <Alex Zayas PA-C - Last Filed: 01/28/23 16:40> Time Seen by Provider: 01/28/23 09:10 <Alex Zayas PA-C - Last Filed: 01/28/23 16:40> Source: patient and EMS <Alex Zayas PA-C - Last Filed: 01/28/23 16:40> Mode of arrival: EMS <Alex Zayas PA-C - Last Filed: 01/28/23 16:40> Limitations: dementia <Alex Zayas PA-C - Last Filed: 01/28/23 16:40> History of Present Illness HPI narrative: This is a 67-year-old female with PMH dementia, CVA, HTN, DE who presents to the ED via EMS with chief complaint of back pain and generalized weakness. Triage note mentions that senior care staff reports that patient has been a little generally weak and was complaining of back pain yesterday. They report that she is able to transfer from chair to chair normally but not able to do so today. They state that she has a bruise to the left jaw but this is from recent dental extraction. She is on amoxicillin for dental procedure currently. EMS reports that her only complaint was the back pain from them. She is at her baseline mental status which is A&O x1 Patient is only able to report back pain. She is unsure of why she is here or where she is. Her has later entered the room. I discussed with him the presentation today. We discussed her low hemoglobin and he states she has been battling on and off over the past several weeks with dental extractions and procedures with her oral surgeon. He states that her low platelets at baseline have caused her to have some increased bleeding over the last several weeks. He states that she does not have any GI bleeding symptoms to his knowledge. <Alex Zayas PA-C - Last Filed: 01/28/23 16:40> Related Data Home medications: Home Medications Medication Instructions Recorded Confirmed acetaminophen 325 mg tablet 650 mg PO Q4H PRN Pain 04/28/22 01/28/23 (Tylenol) alendronate 70 mg tablet (Fosamax) 70 mg PO WEEKLY 04/28/22 01/28/23 amlodipine 2.5 mg tablet (Norvasc) 2.5 mg PO DAILY 04/28/22 01/28/23 atorvastatin 40 mg tablet (Lipitor) 40 mg PO HS 04/28/22 01/28/23 cholecalciferol (vitamin D3) 25 50 mcg PO DAILY 04/28/22 01/28/23 mcg (1,000 unit) tablet (Vitamin D3) donepezil 5 mg tablet (Aricept) 5 mg PO HS 04/28/22 01/28/23 memantine 10 mg tablet (Namenda) 10 mg PO BID 04/28/22 01/28/23 polyethylene glycol 3350 17 gram 17 g PO DAILY PRN Constipation 04/28/22 01/28/23 oral powder packet (Miralax) sennosides 8.6 mg-docusate sodium 8.5 - 50 tablet PO HS PRN 04/28/22 01/28/23 50 mg tablet (Senna Plus) Constipation sertraline 50 mg tablet (Zoloft) 50 mg PO DAILY 04/28/22 01/28/23 Saccharomyces boulardii 250 mg 250 mg PO BID 05/27/22 01/28/23 capsule (Florastor) famotidine 10 mg tablet 20 mg PO PRN heartburn 05/27/22 01/28/23 potassium chloride 20 mEq 20 meq PO DAILY 05/27/22 01/28/23 tablet,extended release amoxicillin 500 mg capsule 500 mg PO TID 01/28/23 01/28/23 ibuprofen 800 mg tablet 800 mg PO QID PRN Pain 01/28/23 01/28/23 ondansetron HCl 4 mg tablet 4 mg PO PRN 01/28/23 01/28/23 <Alex Zayas PA-C - Last Filed: 01/28/23 16:40> Allergies/adverse reactions: Allergies Allergy/AdvReac Type Severity Reaction Status Date / Time lisinopril Allergy Unknown Verified 05/27/22 14:46 <Alex Zayas PA-C - Last Filed: 01/28/23 16:40> Review of Systems Review of Systems: ROS unobtainable: Yes unobtainable due to mental status <Alex Zayas PA-C - Last Filed: 01/28/23 16:40> [facility] Past Medical History Medical History: Medical History (Updated 01/28/23 @ 13:54 by Betty Vela PA-C) Anxiety Cerebrovascular accident Chronic kidney disease, stage 3 Coronary artery disease Dementia Hepatitis C Hyperlipidemia Hypertension Major depression Myocardial inf
[2023-01-28 10:20] LABS: Eosinophils Absolute Auto 0.1 K/mm3 (0-0.3); Hematocrit 24.4 % (37.0-47.0); Hemoglobin 7.2 g/dL (12.0-15.0); Immature Granulocyte Absolute 0.01 K/mm3 (0.00-0.031); Immature Granulocyte Percent A 0.3 % (0-0.5); Immature Platelet Fraction Pct 5.3 % (0.9-11.2); Lymphocytes Absolute Auto 0.81 K/mm3 (0.9-3.2); Lymphocytes Percent Auto 27.2 % (18.3-44.2); Mean Corpuscular HGB Conc 29.5 g/dl (32-36); Mean Corpuscular Hemoglobin 26.4 pg (26-34); Mean Corpuscular Volume 89.4 fl (80-100); Mean Platelet Volume 11.4 fl (7.4-10.4); Monocytes Absolute Auto 0.2 K/mm3 (0.1-0.6); Neutrophils Absolute Auto 1.9 K/mm3 (1.3-6.7); Neutrophils Percent Auto 62.5 % (45.5-73.1); Platelet Count Result 64 k/mm3 (150-375); Red Blood Count 2.73 M/mm3 (4.2-5.4)
[2023-01-28 10:31] LABS: Alanine Aminotransferase 15 U/L (6-35); Albumin Level 3.5 g/dL (3.5-5.1); Alkaline Phosphatase 53 U/L (38-126); Anion Gap 7 mmol/L (8-16); Aspartate Amino Transferase 29 U/L (14-36); Bilirubin,Total 0.9 mg/dL (0.2-1.3); Blood Urea Nitrogen 26 mg/dL (7-17); Calcium 8.9 mg/dL (8.4-10.2); Carbon Dioxide 27 mmol/L (22-30); Chloride 109 mmol/L (98-107); Estimated CRCL calculation 30 ml/min; Estimated Glomerular Filt Rate 41; Glucose 91 mg/dL (65-110); Potassium 4.3 mmol/L (3.4-5.0); Sodium 143 mmol/L (137-145)
[2023-01-28 10:36] LABS: Appearance Urine Cloudy (Clear); Bacteria Urine 4+ /hpf; Bilirubin Urine Negative (Negative); Blood Urine 3+ (Negative); Color Urine Yellow (Yellow); Glucose Urine UA Negative (Negative); Ketones Urine Negative (Negative); Leukocyte Esterase Ur 2+ LEU/UL (Negative); Need Manual Microscopic Reviewed; Nitrate Urine Positive (Negative); Non Pathogenic Casts 0-2; Protein Urine 2+ mg/dL (Negative); RBC Urine 51-100 /hpf (0-2); Specific Grav Ur 1.018 (1.001-1.035); Squamous Epithelial Cell Urine None seen /hpf (Few); Urobilinogen Urine 0.2 mg/dL (<2.0); WBC Urine >100 /hpf; pH Urine 5.5 (5.0-9.0)
[2023-01-28 10:38] LABS: Add Urine Microscopic? YES
[2023-01-28 10:44] LABS: Anisocytosis 1+ (NORMAL); Hypochromasia 1+ (NORMAL); Platelet Estimate Decreased (Adequate); Schistocytes None Seen (NORMAL)
--- NOTE | 2023-01-28 13:35 | PM.IMHP ---
H&P: HPI History of Present Illness Date/Time: 01/28/23 14:30 Chief Complaint: Back pain and weakness. Narrative: This is a 67-year-old female with history of stroke, dementia, coronary artery disease, hypertension, hyperlipidemia, chronic kidney disease stage 3, anxiety, and chronic pancytopenia who presented to the emergency department via EMS from a local residential for evaluation of back pain and weakness. She is alert and oriented x1 at baseline and is not able to provide a good history and as such a majority of the following is obtained via a review of her EMR as well as information obtained from her . Yesterday she complained of back pain which she could not really describe and today staff at her residential noticed that she was weak and was unable to transfer as usual. There was no mention of cold or flu symptoms, fever, vomiting, or diarrhea. At the time of my evaluation she is in good spirits and her only complaint is that of mild discomfort in the left lower jaw where she had the tooth pulled. She reports having a poor appetite but denies nausea and vomiting. She is not currently having back discomfort and she does not recall having back pain yesterday. In the ED: She was afebrile on arrival to the ED with stable vital signs. Urine was nitrate and leukocyte esterase positive with 4+ bacteria and she was given a g of ceftriaxone. Labs were significant for a hemoglobin of 7.2 which is 3 g lower than what it was on labs in May of this year. Her stool was Hemoccult positive and with further questioning it sounds as though she has had quite a bit of bleeding at a recent dental extraction site. She is being admitted in this setting for IV antibiotics and close monitoring of her hemoglobin. Review of Systems Review of Systems: Unable to be obtained accurately given her dementia. [facility] Past Medical History Medical History (Updated 01/28/23 @ 21:47 by Betty Vela PA-C) Anxiety Cerebrovascular accident Chronic kidney disease, stage 3 Coronary artery disease Dementia Hepatitis C Hyperlipidemia Hypertension Major depression Myocardial infarction Osteoporosis Pancytopenia Surgical History Surgical History (Updated 01/28/23 @ 13:48 by Betty Vela PA-C) History of cardiac catheterization History of cystoscopy History of hysterectomy History of percutaneous coronary intervention History of right hip replacement Family History Family History (Updated 01/28/23 @ 15:36 by Gloria Jimenez RN) Sibling Acute myocardial infarction Mother Cancer Social History Social History (Updated 01/28/23 @ 13:49 by Betty Vela PA-C) Social History: . Has 2 sons. 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 No alcohol or illicit substance use. Surrogate medical decision maker: Kwabena Carter, spouse. Code status: Do not resuscitate. Smoking packs per day: 1 Smoking cigarettes per day: 20.0 Years smoked: 40 Smoking pack-years: 40.00 Smoking status: Former smoker Alcohol intake: never Substance use: never Lack of Transportation: No Lack of Food: Never True Current Housing: I Have Housing Concerned About Future Housing: No Difficulty Paying Gas/Electric Bills: No Difficulty Paying for Meds: No Currently Unemployed: No Education: Decline to Answer Difficulty w/ Childcare or Family Care: No Spiritual care concerns: No Meds Home Medications and Allergies Home Medications Medication Instructions Recorded Confirmed Type acetaminophen 325 mg tablet 650 mg PO Q4H PRN Pain 04/28/22 01/28/23 History (Tylenol) alendronate 70 mg tablet (Fosamax) 70 mg PO WEEKLY 04/28/22 01/28/23 History amlodipine 2.5 mg tablet (Norvasc) 2.5 mg PO DAILY 04/28/22 01/28/23 History atorvastatin 40 mg tablet (Lipitor) 40 mg PO HS 04/28/22 01/28/23 History cholecalciferol (vitamin D3) 25 50 mcg PO DAILY 04/28/22 01/28/23 History mcg (1,000 unit) tablet (Vitamin D3) doneeyadzi
[2023-01-28] MEDS: SODIUM CHLORIDE 0.9% IV 1,000 ML 125 ML IV CONT (14:00)
--- NOTE | 2023-01-28 15:05 | ADMGEN ---
This patient, Ursula Zapata, was admitted to [facility] Surg Room 305-01. Patient/family oriented to hospital policies and general routines including ID bracelet, bed and alarms, visiting hours, pain management, procedures, bathroom and other care routines, personal items, smoking policy, room service/diet, and visiting hours. Information on how to activate the Rapid Response Team has been discussed. Patient/Family are encouraged to report perceived risks to care and to ask questions if they do not understand what they are told or what they should do.
[2023-01-28 22:21] LABS: Hematocrit 21.9 % (37.0-47.0)
[2023-01-28 22:30] LABS: Hemoglobin 6.4 g/dL (12.0-15.0)
[2023-01-28] MEDS: ATORVASTATIN 40 MG TABLET PO (22:35)
[2023-01-28] MEDS: MEMANTINE 10 MG TABLET PO (22:35)
[2023-01-28] MEDS: DONEPEZIL HCL 5 MG TABLET PO (22:35)
[2023-01-29] VITALS (14 sets, daily range): BP systolic 148–173; BP diastolic 57–89; PULSE 56–82; RESP 16–20; TEMP 36.4–37.4; O2SAT 96–100
[2023-01-29] MEDS: SODIUM CHLORIDE 0.9% IV 250 ML 30 ML IV CONT (02:20)
[2023-01-29] MEDS: TUBING, BLOOD PLUM PUMP TUBING 1 EACH XX ×2 (02:40→07:05)
[2023-01-29 06:42] LABS: Hematocrit 27.9 % (37.0-47.0); Hemoglobin 8.3 g/dL (12.0-15.0); Immature Platelet Fraction Pct 5.4 % (0.9-11.2); Mean Corpuscular HGB Conc 29.7 g/dl (32-36); Mean Corpuscular Hemoglobin 26.6 pg (26-34); Mean Corpuscular Volume 89.4 fl (80-100); Mean Platelet Volume 10.8 fl (7.4-10.4); Platelet Count Result 55 k/mm3 (150-375); Red Blood Count 3.12 M/mm3 (4.2-5.4); Red Cell Distribution Width 14.4 % (11.5-14.5); White Blood Count 2.6 K/mm3 (4.5-10.0)
[2023-01-29 06:49] LABS: Anion Gap 8 mmol/L (8-16); Blood Urea Nitrogen 19 mg/dL (7-17); Carbon Dioxide 24 mmol/L (22-30); Chloride 107 mmol/L (98-107); Estimated CRCL calculation 37 ml/min; Estimated Glomerular Filt Rate 55; Glucose 88 mg/dL (65-110); Magnesium 1.8 mg/dL (1.6-2.3); Potassium 3.7 mmol/L (3.4-5.0); Sodium 139 mmol/L (137-145)
[2023-01-29] MEDS: SODIUM CHLORIDE 0.9% IV 250 ML 30 ML (07:05)
[2023-01-29] MEDS: CHOLECALCIFEROL 1,000 UNITS TABLET 2000 UNITS PO (09:05)
[2023-01-29] MEDS: POTASSIUM CHLORIDE 20 MEQ ER TABLET PO (09:05)
[2023-01-29] MEDS: SACCHAROMYCES BOULARDII 250 MG CAPSULE PO ×2 (09:05→18:15)
[2023-01-29] MEDS: SERTRALINE HCL 50 MG TABLET PO (09:05)
[2023-01-29] MEDS: amLODIPine BESYLATE 2.5 MG TABLET PO (09:06)
[2023-01-29] MEDS: MEMANTINE 10 MG TABLET PO ×2 (09:06→18:15)
--- NOTE | 2023-01-29 13:23 | PM.IMPN ---
Progress Note: A&P Assessment and Plan (1) Urinary tract infection: Code(s): N39.0 - Urinary tract infection, site not specified Status: Acute Assessment and Plan: Urine in nitrate and leukocyte esterase positive with 4+ bacteria, 51-100 RBC, and > 100 WBC. Continue ceftriaxone pending urine culture. Adjust antibiotics to culture results CT abdomen/pelvis pending (2) Heme positive stool: Code(s): R19.5 - Other fecal abnormalities Status: Acute Assessment and Plan: Stool is heme positive; may very well be due to bleeding from tooth extraction site. GI consulted and appreciate recommendations (3) Acute blood loss anemia: Code(s): D62 - Acute posthemorrhagic anemia Status: Acute Assessment and Plan: Baseline hemoglobin looks to be right around 10. Hemoglobin hematocrit found to be 6.4/21.9 and she received 2 units of PRBCs. Trend H&H Anemia labs were not drawn prior to transfusion. GI consulted appreciate recommendations (4) Pancytopenia: Code(s): D61.818 - Other pancytopenia Status: Acute Assessment and Plan: A chronic finding for this patient of unclear etiology. Brysonior. (5) Right thyroid nodule: Code(s): E04.1 - Nontoxic single thyroid nodule Status: Acute Assessment and Plan: Needs outpatient follow-up. (6) Chronic kidney disease, stage 3: Code(s): N18.30 - Chronic kidney disease, stage 3 unspecified Status: Acute Assessment and Plan: Creatinine is stable on review of previous labs. Monitor. (7) Hypertension: Code(s): I10 - Essential (primary) hypertension Status: Acute Assessment and Plan: Blood pressures were reviewed and they are stable. Continue antihypertensives and monitor. Subjective Date/time seen: 01/29/23 13:23 Interval history: Patient resting with at bedside. provides most of the history. Patient had been having back pain and neck pain when she presented to the ED was found to have a low hemoglobin and UTI. Patient states she thinks her back pain is from lying in the bed too much. Patient is wheelchair-bound. She denies any nausea, vomiting, dysuria, chest pain shortness a breath. Exam Narrative: GENERAL: Comfortable, no acute distress HENMT: moist mucous membranes EYES: EOM intact b/l NECK: no lymphadenopathy RESPIRATORY: clear to auscultation CARDIO: RRR GI: soft, nontender, bowel sounds present SKIN: no rashes EXTREMITIES: no edema, redness or tenderness Objective Data Vital Signs Vital Signs: Vital Signs - 24 hr 01/28/23 13:30 01/28/23 13:31 01/28/23 13:45 Temperature Pulse Rate 61 64 67 Respiratory Rate 13 15 22 H Blood Pressure 112/70 Pulse Oximetry Oxygen Delivery 01/28/23 13:46 01/28/23 14:00 01/28/23 14:01 Temperature Pulse Rate 75 67 66 Respiratory Rate 16 18 17 Blood Pressure 119/79 109/92 H Pulse Oximetry 99 99 99 Oxygen Delivery 01/28/23 14:15 01/28/23 14:16 01/28/23 16:26 Temperature 97.5 F L Pulse Rate 64 66 66 Respiratory Rate 17 17 14 Blood Pressure 135/83 115/67 Pulse Oximetry 97 99 Oxygen Delivery 01/28/23 16:46 01/28/23 22:00 01/28/23 21:30 Temperature 97.8 F Pulse Rate 60 Respiratory Rate 16 Blood Pressure 149/73 H Pulse Oximetry 98 Oxygen Delivery Room Air Room Air 01/29/23 02:39 01/29/23 02:56 01/29/23 03:56 Temperature 97.7 F 97.9 F 97.8 F Pulse Rate 59 L 59 L 82 Respiratory Rate 18 18 17 Blood Pressure 164/78 H 166/57 H 168/76 H Pulse Oximetry 97 99 100 Oxygen Delivery 01/29/23 04:56 01/29/23 05:25 01/29/23 06:00 Temperature 97.6 F 98.3 F 98.3 F Pulse Rate 60 58 L 58 L Respiratory Rate 18 20 20 Blood Pressure 148/68 H 160/65 H 160/65 H Pulse Oximetry 100 99 99 Oxygen Delivery 01/29/23 07:05 01/29/23 07:20 01/29/23 08:20 Temperature 98.1 F 98.2 F 98.6 F Puls
--- NOTE | 2023-01-29 14:29 | WPDGICN ---
Assessment and Plan Assessment and plan (1) Heme positive stool: Code(s): R19.5 - Other fecal abnormalities Status: Acute Assessment and Plan: no overt gib, most likely occult blood from previous bleeding after dental extraction that she could have swallowed and also in setting of low platelets on recent colonoscopy but she is dealing with back pain and bowel prep will be challenging, probably this can be done as outpatient (2) Pancytopenia: Code(s): D61.818 - Other pancytopenia Status: Acute Assessment and Plan: recent bleeding after tooth extraction, this could have caused anemia also reviewed imaging and she has been diagnosed in 2021 with cirrhosis (HCV RNA was negative) this can explain anemia and also low platelets, probably also will need follow-up with hematology recommend to have liver ultrasound every 6 months for hcc surveillance and blood work (3) Acute on chronic anemia: Code(s): D64.9 - Anemia, unspecified Status: Acute Assessment and Plan: monitor no obvious gib (4) Dementia: Code(s): F03.90 - Unspecified dementia, unspecified severity, without behavioral disturbance, psychotic disturbance, mood disturbance, and anxiety Status: Acute (5) History of CVA (cerebrovascular accident): Code(s): Z86.73 - Personal history of transient ischemic attack (TIA), and cerebral infarction without residual deficits Status: Acute GI Consult Note Consult date/time: 01/29/23 14:29 Reason for consult: anemia, fobt + HPI: Ursula Zapata is a 67 year old female with history of stroke and dementia who has been in care home for more than 2 years, coronary artery disease, hypertension, chronic kidney disease stage 3, and chronic pancytopenia with chronic anemia. is here and providing some of history (patient is confused and not reliable). She was sent here from a local care home for evaluation of back pain and weakness. was informed that day before admission she had new onset of back pain, also staff at her care home noticed that she was weak and was unable to transfer as usual. Patient also has been evaluated and had tooth extraction recently which left some discomfort and also bleeding from that site ( noted some blood in her mouth yesterday). ER evaluation with dirty urine and diagnosed with UTI, given ceftriaxone. Labs were significant for a hemoglobin of 7.2 (chronic anemia at 10's but lower this time) and also low platelets in 50's (we have records since last year and always low). No report of obvious blood in stools but found to have occult blood in stool. does not think that she had colonoscopy. Noted abdominal us from 2021 showed cirrhosis (had positive hcv ab but negative RNA) Review of Systems Review of Systems: ROS unobtainable: Yes unobtainable due to mental status PMFSH Past Medical History Medical History (Updated 01/29/23 @ 14:36 by Andre Rvias MD) Acute on chronic anemia Anxiety Cerebrovascular accident Chronic kidney disease, stage 3 Coronary artery disease Dementia Hepatitis C Hyperlipidemia Hypertension Major depression Myocardial infarction Osteoporosis Pancytopenia Surgical History Surgical History (Updated 01/28/23 @ 13:48 by Betty Vela PA-C) History of cardiac catheterization History of cystoscopy History of hysterectomy History of percutaneous coronary intervention History of right hip replacement Family History Family History (Updated 01/28/23 @ 15:36 by Gloria Jimenez RN) Sibling Acute myocardial infarction Mother Cancer Social History Social History (Updated 01/28/23 @ 13:49 by Betty Vela PA-C) Social History: . Has 2 sons. 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 No alcohol or illicit substance use. Surrogate medical decision maker: Kwabena Carter, spouse. Code status: Do not resuscitate. Smoking packs per day: 1 Smoking cigarettes p
[2023-01-29 15:01] LABS: Hematocrit 33.2 % (37.0-47.0); Hemoglobin 10.4 g/dL (12.0-15.0)
[2023-01-29] MEDS: ATORVASTATIN 40 MG TABLET PO (21:20)
[2023-01-29] MEDS: DONEPEZIL HCL 5 MG TABLET PO (21:20)
[2023-01-30 06:00] VITALS: BP 168/78; PULSE 57; RESP 20; TEMP 36.5; O2SAT 98
[2023-01-30 06:27] LABS: Hematocrit 32.6 % (37.0-47.0); Hemoglobin 10.1 g/dL (12.0-15.0); Immature Platelet Fraction Pct 5.7 % (0.9-11.2); Mean Corpuscular Hemoglobin 27.2 pg (26-34); Mean Corpuscular Volume 87.6 fl (80-100); Mean Platelet Volume 10.9 fl (7.4-10.4); Platelet Count Result 50 k/mm3 (150-375); Red Blood Count 3.72 M/mm3 (4.2-5.4); Red Cell Distribution Width 14.5 % (11.5-14.5); White Blood Count 2.7 K/mm3 (4.5-10.0)
[2023-01-30 06:39] LABS: Alanine Aminotransferase 15 U/L (6-35); Albumin Level 3.4 g/dL (3.5-5.1); Alkaline Phosphatase 52 U/L (38-126); Anion Gap 6 mmol/L (8-16); Aspartate Amino Transferase 30 U/L (14-36); Bilirubin,Total 1.7 mg/dL (0.2-1.3); Blood Urea Nitrogen 19 mg/dL (7-17); Carbon Dioxide 24 mmol/L (22-30); Chloride 109 mmol/L (98-107); Estimated CRCL calculation 39 ml/min; Estimated Glomerular Filt Rate 55; Glucose 91 mg/dL (65-110); Potassium 4.1 mmol/L (3.4-5.0); Sodium 139 mmol/L (137-145)
[2023-01-30] MEDS: SERTRALINE HCL 50 MG TABLET PO (09:18)
[2023-01-30] MEDS: amLODIPine BESYLATE 2.5 MG TABLET PO (09:18)
[2023-01-30] MEDS: MEMANTINE 10 MG TABLET PO ×2 (09:18→18:02)
[2023-01-30] MEDS: CHOLECALCIFEROL 1,000 UNITS TABLET 2000 UNITS PO (09:18)
[2023-01-30] MEDS: SACCHAROMYCES BOULARDII 250 MG CAPSULE PO ×2 (09:18→18:01)
[2023-01-30] MEDS: POTASSIUM CHLORIDE 20 MEQ ER TABLET PO (09:18)
--- NOTE | 2023-01-30 12:28 | WPDGIPROGNO ---
Progress Note: A&P Assessment and Plan (1) Cirrhosis: Code(s): K74.60 - Unspecified cirrhosis of liver Status: Acute Assessment and Plan: last year noted cirrhosis, is not aware of diagnosis HCV RNA negative, no alcohol abuse, wonder if could be villanueva (we can complete work up while she is here) also will be a good idea to do EGD to assess if varices (2) Acute on chronic anemia: Code(s): D64.9 - Anemia, unspecified Status: Acute Assessment and Plan: hgb low but stable after transfusion recent bleeding after dental work- this is not surprising given cirrhosis and thrombocytopenia- I think this also will explain occult blood in stool however she never had colonoscopy, since she will receive anesthesia tomorrow anyway for egd, I offered also to do colonoscopy since she never had one. If she can not tolerate prep then sigmoidoscopy can be an option. (3) Heme positive stool: Code(s): R19.5 - Other fecal abnormalities Status: Acute (4) Pancytopenia: Code(s): D61.818 - Other pancytopenia Status: Acute Assessment and Plan: probably from cirrhosis may need follow-up with travel administrator Subjective Date/time seen: 01/30/23 12:28 Interval history: she is feeling ok, no report of bleeding. at bedside. Review of Systems Review of Systems: All systems reviewed & are unremarkable except as noted in HPI and below Exam Const: General: comfortable HENMT: Face/Nose/Sinus: Normal nares present Eyes: Sclera: sclerae normal Neck: Neck: supple Resp: Effort & Inspection: normal respiratory effort Cardio: Rate: regular rate GI: GI Palp: Yes Soft to palpation, No Tenderness to palpation present (GI) and No Guarding due to palpation present (GI) Auscultation: normal bowel sounds Skin: General skin exam: no rashes or lesions noted Neuro: Speech: normal speech Other: awake and alert x1, pleasantly confused Extrem: General: normal to inspection Psych: Attitude: not belligerent Objective Data Vital Signs Vital Signs: Vital Signs - 24 hr 01/29/23 14:00 01/29/23 22:00 01/30/23 06:00 Temperature 98.7 F 97.6 F 97.7 F Pulse Rate 70 67 57 L Respiratory Rate 16 18 20 Blood Pressure 156/81 H 157/89 H 168/78 H Pulse Oximetry 97 99 98 Oxygen Delivery 01/30/23 08:00 Temperature Pulse Rate Respiratory Rate Blood Pressure Pulse Oximetry Oxygen Delivery Room Air Intake/Output Intake/Output: Intake & Output 01/27/23 01/28/23 01/29/23 01/30/23 23:59 23:59 23:59 23:59 Intake Total 150 1280 200 Output Total 440 Balance -290 1280 200 Meds/Results Medications: Active Medications Generic Name Dose Route Start Last Admin Trade Name Freq PRN Reason Stop Dose Admin Acetaminophen 650 mg 01/28/23 21:48 Acetaminophen 325 Mg Tablet PO Q4H PRN Pain Amlodipine Besylate 2.5 mg 01/29/23 09:00 01/30/23 09:18 Amlodipine Besylate 2.5 Mg Tablet PO 2.5 mg DAILY JUAN F Administration Atorvastatin Calcium 40 mg 01/28/23 22:05 01/29/23 21:20 Atorvastatin 40 Mg Tablet PO 40 mg HS JUAN F Administration Donepezil HCl 5 mg 01/28/23 22:05 01/29/23 21:20 Donepezil Hcl 5 Mg Tablet PO 5 mg HS JUAN F Administration Famotidine 20 mg 01/28/23 21:50 Famotidine 20 Mg Tablet PO BID PRN Acid Reflux Ceftriaxone Sodium 1 gm in 50 mls @ 100 mls/hr 01/29/23 09:00 01/30/23 09:18 Rocephin 1 Gm/Ns 50 Ml IVPB 100 mls/hr Q24H JUAN F Administration Memantine 10 mg 01/29/23 09:00 01/30/23 09:18 Memantine 10 Mg Tablet PO 10 mg BID JUAN F Administration Ondansetron HCl 4 mg 01/28/23 12:58 Ondansetron Inj 4 Mg/2 Ml Vial IV PUSH Q4H PRN Nausea Polyethylene Glycol 17 gm 01/28/23 21:48 Polyethylene Glycol 3350 17 Gm Powd.Pack PO DAILY PRN Constipation Potassium Chloride 20 meq 01/29/23 09:00 01/30/23 09:18 Potassium Chloride 2
--- NOTE | 2023-01-30 12:37 | PM.IMPN ---
Progress Note: A&P Assessment and Plan (1) Urinary tract infection: Code(s): N39.0 - Urinary tract infection, site not specified Status: Acute Assessment and Plan: Urine in nitrate and leukocyte esterase positive with 4+ bacteria, 51-100 RBC, and > 100 WBC. Continue ceftriaxone pending urine culture. Adjust antibiotics to culture results CT abdomen/pelvis revealing Cirrhotic changes of the liver with small amount of ascites. (2) Heme positive stool: Code(s): R19.5 - Other fecal abnormalities Status: Acute Assessment and Plan: Stool is heme positive; may very well be due to bleeding from tooth extraction site. GI consulted and appreciate recommendations (3) Cirrhosis: Code(s): K74.60 - Unspecified cirrhosis of liver Status: Acute Assessment and Plan: Ct abdomen and pelvis showing cirrhotic changes with small volume ascites. GI recommending EGD to rule out varices. could likely explain patients increase ability to bleed and pancytopenia. Pt does have hx of cirrhosis. (4) Acute blood loss anemia: Code(s): D62 - Acute posthemorrhagic anemia Status: Acute Assessment and Plan: Baseline hemoglobin looks to be right around 10. Hemoglobin hematocrit found to be 6.4/21.9 and she received 2 units of PRBCs. Trend H&H Anemia labs were not drawn prior to transfusion. GI consulted appreciate recommendations (5) Pancytopenia: Code(s): D61.818 - Other pancytopenia Status: Acute Assessment and Plan: A chronic finding for this patient of unclear etiology. Montior. (6) Right thyroid nodule: Code(s): E04.1 - Nontoxic single thyroid nodule Status: Acute Assessment and Plan: Needs outpatient follow-up. (7) Chronic kidney disease, stage 3: Code(s): N18.30 - Chronic kidney disease, stage 3 unspecified Status: Acute Assessment and Plan: Creatinine is stable on review of previous labs. Monitor. (8) Hypertension: Code(s): I10 - Essential (primary) hypertension Status: Acute Assessment and Plan: Blood pressures were reviewed and they are stable. Continue antihypertensives and monitor. Subjective Date/time seen: 01/30/23 12:37 Interval history: Patient doing well with no new complaints at this time. GI seeing her and advising EGD due to cirrhosis diagnosis and anemia. Rule out varices. Waiting on culture sensitivities to return. Exam Narrative: GENERAL: Comfortable, no acute distress HENMT: moist mucous membranes EYES: EOM intact b/l NECK: no lymphadenopathy RESPIRATORY: clear to auscultation CARDIO: RRR GI: soft, nontender, bowel sounds present SKIN: no rashes EXTREMITIES: no edema, redness or tenderness Objective Data Vital Signs Vital Signs: Vital Signs - 24 hr 01/29/23 14:00 01/29/23 22:00 01/30/23 06:00 Temperature 98.7 F 97.6 F 97.7 F Pulse Rate 70 67 57 L Respiratory Rate 16 18 20 Blood Pressure 156/81 H 157/89 H 168/78 H Pulse Oximetry 97 99 98 Oxygen Delivery 01/30/23 08:00 Temperature Pulse Rate Respiratory Rate Blood Pressure Pulse Oximetry Oxygen Delivery Room Air Intake/Output Intake/Output: Intake & Output 01/27/23 01/28/23 01/29/23 01/30/23 23:59 23:59 23:59 23:59 Intake Total 150 1280 200 Output Total 440 Balance -290 1280 200 Meds/Results Medications: Active Medications Generic Name Dose Route Start Last Admin Trade Name Freq PRN Reason Stop Dose Admin Acetaminophen 650 mg 01/28/23 21:48 Acetaminophen 325 Mg Tablet PO Q4H PRN Pain Amlodipine Besylate 2.5 mg 01/29/23 09:00 01/30/23 09:18 Amlodipine Besylate 2.5 Mg Tablet PO 2.5 mg DAILY JUAN F Administration Atorvastatin Calcium 40 mg 01/28/23 22:05 01/29/23 21:20 Atorvastatin 40 Mg Tablet PO 40 mg HS JUAN F Administration Bisacodyl 20 mg 01/30/23
[2023-01-30 14:00] VITALS: BP 148/71; PULSE 59; RESP 20; TEMP 36.6; O2SAT 99
[2023-01-30] MEDS: BISACODYL 5 MG TABLET EC 20 MG PO (18:02)
[2023-01-30] MEDS: polyethylene glycoL 3350 238 GM BOTTLE PO (18:02)
[2023-01-30] MEDS: DONEPEZIL HCL 5 MG TABLET PO (20:37)
[2023-01-30] MEDS: ATORVASTATIN 40 MG TABLET PO (20:37)
--- NOTE | 2023-01-30 21:54 | PC.NURSE ---
Pt 1/[address] through bowel prep and is adamantly refusing to drink any more. Reinforced the reason she needs to complete the regimen, but Pt is only alert to self and currently very agitated when providing cares.
[2023-01-30 22:00] VITALS: BP 122/66; PULSE 83; RESP 13; TEMP 37.3; O2SAT 95
[2023-01-31] VITALS (10 sets, daily range): BP systolic 74–171; BP diastolic 45–82; PULSE 52–62; RESP 12–22; TEMP 36.3–36.7; O2SAT 95–100
[2023-01-31 06:22] LABS: Hemoglobin 10.3 g/dL (12.0-15.0); Immature Platelet Fraction Pct 5.9 % (0.9-11.2); Mean Corpuscular HGB Conc 30.3 g/dl (32-36); Mean Corpuscular Hemoglobin 27.2 pg (26-34); Mean Corpuscular Volume 89.7 fl (80-100); Mean Platelet Volume 11.6 fl (7.4-10.4); Platelet Count Result 50 k/mm3 (150-375); Red Blood Count 3.79 M/mm3 (4.2-5.4); Red Cell Distribution Width 14.8 % (11.5-14.5); White Blood Count 3.3 K/mm3 (4.5-10.0)
[2023-01-31 06:32] LABS: Alanine Aminotransferase 14 U/L (6-35); Alkaline Phosphatase 49 U/L (38-126); Anion Gap 8 mmol/L (8-16); Aspartate Amino Transferase 27 U/L (14-36); Bilirubin,Total 1.1 mg/dL (0.2-1.3); Blood Urea Nitrogen 20 mg/dL (7-17); Calcium 7.7 mg/dL (8.4-10.2); Carbon Dioxide 20 mmol/L (22-30); Chloride 111 mmol/L (98-107); Estimated CRCL calculation 34 ml/min; Estimated Glomerular Filt Rate 49; Glucose 87 mg/dL (65-110); Potassium 3.7 mmol/L (3.4-5.0); Sodium 139 mmol/L (137-145)
--- NOTE | 2023-01-31 07:35 | PM.IMPN ---
Progress Note: A&P Assessment and Plan (1) Urinary tract infection: Code(s): N39.0 - Urinary tract infection, site not specified Status: Acute Assessment and Plan: Urine in nitrate and leukocyte esterase positive with 4+ bacteria, 51-100 RBC, and > 100 WBC. Rocephin 4 doses. Urine culture with multiple resistance. ID pharmacist and I discussed plan and will give 1 x dose of Gentamicin tomorrow for an uncomplicated cystis. CT abdomen/pelvis revealing Cirrhotic changes of the liver with small amount of ascites. (2) Heme positive stool: Code(s): R19.5 - Other fecal abnormalities Status: Acute Assessment and Plan: Stool is heme positive; may very well be due to bleeding from tooth extraction site. GI consulted and appreciate recommendations EGD 01/31-gastritis and non-bleeding esophageal varices as well as hiatial hernia. Colonoscopy with diverticulosis. Started on PPI and non-selective beta homero for varices. (3) Cirrhosis: Code(s): K74.60 - Unspecified cirrhosis of liver Status: Acute Assessment and Plan: Ct abdomen and pelvis showing cirrhotic changes with small volume ascites. GI recommending EGD to rule out varices. could likely explain patients increase ability to bleed and pancytopenia. Pt does have hx of cirrhosis. (4) Acute blood loss anemia: Code(s): D62 - Acute posthemorrhagic anemia Status: Acute Assessment and Plan: Baseline hemoglobin looks to be right around 10. Hemoglobin hematocrit found to be 6.4/21.9 and she received 2 units of PRBCs. Trend H&H Anemia labs were not drawn prior to transfusion. GI consulted appreciate recommendations (5) Pancytopenia: Code(s): D61.818 - Other pancytopenia Status: Acute Assessment and Plan: A chronic finding for this patient of unclear etiology. Montior. (6) Right thyroid nodule: Code(s): E04.1 - Nontoxic single thyroid nodule Status: Acute Assessment and Plan: Needs outpatient follow-up. (7) Chronic kidney disease, stage 3: Code(s): N18.30 - Chronic kidney disease, stage 3 unspecified Status: Acute Assessment and Plan: Creatinine is stable on review of previous labs. Monitor. (8) Hypertension: Code(s): I10 - Essential (primary) hypertension Status: Acute Assessment and Plan: Blood pressures were reviewed and they are stable. Continue antihypertensives and monitor. Plan IV gentamycin dose tomorrow and likely d/c back to her facility depending on her presentation. Subjective Date/time seen: 01/31/23 07:35 Interval history: HPI obtained from chart, This is a 67-year-old female with history of stroke, dementia, coronary artery disease, hypertension, hyperlipidemia, chronic kidney disease stage 3, anxiety, and chronic pancytopenia who presented to the emergency department via EMS from a local group home for evaluation of back pain and weakness. She is alert and oriented x1 at baseline and is not able to provide a good history and as such a majority of the following is obtained via a review of her EMR as well as information obtained from her . Yesterday she complained of back pain which she could not really describe and today staff at her group home noticed that she was weak and was unable to transfer as usual. There was no mention of cold or flu symptoms, fever, vomiting, or diarrhea. At the time of my evaluation she is in good spirits and her only complaint is that of mild discomfort in the left lower jaw where she had the tooth pulled. She reports having a poor appetite but denies nausea and vomiting. She is not currently having back discomfort and she does not recall having back pain yesterday. 01/31: Patient seen at the bedside after returning from her EGD. Her is at the bedside and her clinic care is discussed with him. He says that her norm
[2023-01-31] MEDS: LACTATED RINGERS 1,000 ML 150 ML IV CONT (08:56)
--- NOTE | 2023-01-31 09:14 | WPDANESEPPF ---
Anes - Initial Pre Proc Eval Procedure: Operation Date: 01/31/23 13:30 Proposed Procedures p Esophagogastroduodenoscopy & Colonoscopy - Andre Rivas MD Date/Time: 01/31/23 09:14 Surgeon: Deni Handy MD Pre Op Diagnosis: UTI/Anemia/GI Bleed Patient Data Age: 67 Gender: F Height: 1.63 m Weight: 50.5 kg Last Vital Signs Temp 97.4 F L 01/31/23 08:30 Pulse 61 01/31/23 08:30 Resp 18 01/31/23 08:30 BP 171/82 H 01/31/23 08:30 Pulse Ox 97 01/31/23 08:30 O2 Del Method Room Air 01/31/23 08:30 Allergies Allergy/AdvReac Type Severity Reaction Status Date / Time lisinopril Allergy Unknown Verified 05/27/22 14:46 Home Medications Medication Instructions Recorded Confirmed Type acetaminophen 325 mg tablet 650 mg PO Q4H PRN Pain 04/28/22 01/28/23 History (Tylenol) alendronate 70 mg tablet (Fosamax) 70 mg PO WEEKLY 04/28/22 01/28/23 History amlodipine 2.5 mg tablet (Norvasc) 2.5 mg PO DAILY 04/28/22 01/28/23 History atorvastatin 40 mg tablet (Lipitor) 40 mg PO HS 04/28/22 01/28/23 History cholecalciferol (vitamin D3) 25 50 mcg PO DAILY 04/28/22 01/28/23 History mcg (1,000 unit) tablet (Vitamin D3) donepezil 5 mg tablet (Aricept) 5 mg PO HS 04/28/22 01/28/23 History memantine 10 mg tablet (Namenda) 10 mg PO BID 04/28/22 01/28/23 History polyethylene glycol 3350 17 gram 17 g PO DAILY PRN Constipation 04/28/22 01/28/23 History oral powder packet (Miralax) sennosides 8.6 mg-docusate sodium 8.5 - 50 tablet PO HS PRN 04/28/22 01/28/23 History 50 mg tablet (Senna Plus) Constipation sertraline 50 mg tablet (Zoloft) 50 mg PO DAILY 04/28/22 01/28/23 History Saccharomyces boulardii 250 mg 250 mg PO BID 05/27/22 01/28/23 History capsule (Florastor) famotidine 10 mg tablet 20 mg PO PRN heartburn 05/27/22 01/28/23 History potassium chloride 20 mEq 20 meq PO DAILY 05/27/22 01/28/23 History tablet,extended release amoxicillin 500 mg capsule 500 mg PO TID 01/28/23 01/28/23 History ibuprofen 800 mg tablet 800 mg PO QID PRN Pain 01/28/23 01/28/23 History ondansetron HCl 4 mg tablet 4 mg PO PRN 01/28/23 01/28/23 History Laboratory Tests 01/31/23 05:55 WBC 3.3 L K/mm3 (4.5-10.0) RBC 3.79 L M/mm3 (4.2-5.4) Hgb 10.3 L g/dL (12.0-15.0) Hct 34.0 L % (37.0-47.0) MCV 89.7 fl (80-100) MCH 27.2 pg (26-34) MCHC 30.3 L g/dl (32-36) RDW 14.8 H % (11.5-14.5) Plt Count 50 L k/mm3 (150-375) MPV 11.6 H fl (7.4-10.4) % Immature Plt Fraction 5.9 % (0.9-11.2) Sodium 139 mmol/L (137-145) Potassium 3.7 mmol/L (3.4-5.0) Chloride 111 H mmol/L (98-107) Carbon Dioxide 20 L mmol/L (22-30) Anion Gap 8 mmol/L (8-16) BUN 20 H mg/dL (7-17) Creatinine 1.10 H mg/dL (0.7-1.0) Estim Creat Clear Calc 34 ml/min Estimated GFR 49 L (59 - ) Glucose 87 mg/dL (65-110) Calcium 7.7 L mg/dL (8.4-10.2) Total Bilirubin 1.1 mg/dL (0.2-1.3) AST 27 U/L (14-36) ALT 14 U/L (6-35) Alkaline Phosphatase 49 U/L (38-126) Total Protein 5.0 L g/dL (6.3-8.2) Albumin 3.0 L g/dL (3.5-5.1) Patient hx anesthesia problems: none Family hx anesthesia problems: none Results Review: All pre-operative results and documents have been reviewed as part of the pre-operative evaluation. [facility] Past Medical History Medical History (Updated 01/30/23 @ 12:29 by Andre Rivas MD) Acute on chronic anemia Anxiety Cerebrovascular accident Chronic kidney disease, stage 3 Cirrhosis Coronary artery disease Dementia Hepatitis C Hyperlipidemia Hypertension Major depression Myocardial infarction Osteoporosis Pancytopenia Surgical History Surgical History (Updated 01/28/23 @ 13:48 by CASPER KnowlesC) History of cardiac catheterization History of cystoscopy History of hysterectomy History of percutaneous coronary intervention Histor
--- NOTE | 2023-01-31 10:01 | SUR.OPER ---
EGD START: 943; END: 945. COLONOSCOPY START: 949; END: 1.
--- NOTE | 2023-01-31 10:22 | SUR.PHASEII ---
Blood pressure low on arrival to post op, Doctor Velasquez notified, IV fluids wide open, placed on 4 L O2 95%, will continue to monitor.
[2023-01-31] MEDS: POTASSIUM CHLORIDE 20 MEQ ER TABLET PO (12:12)
[2023-01-31] MEDS: CHOLECALCIFEROL 1,000 UNITS TABLET 2000 UNITS PO (12:12)
[2023-01-31] MEDS: amLODIPine BESYLATE 2.5 MG TABLET PO (12:12)
[2023-01-31] MEDS: SACCHAROMYCES BOULARDII 250 MG CAPSULE PO ×2 (12:12→17:08)
[2023-01-31] MEDS: SERTRALINE HCL 50 MG TABLET PO (12:12)
[2023-01-31] MEDS: MEMANTINE 10 MG TABLET PO ×2 (12:12→17:08)
[2023-01-31 12:22] LABS: Iron 37 ug/dL (37-170)
[2023-01-31 12:33] LABS: Percent Iron Saturation 10 % (20-50)
[2023-01-31] MEDS: PROPRANOLOL HCL 10 MG TABLET PO (21:05)
[2023-01-31] MEDS: ATORVASTATIN 40 MG TABLET PO (21:07)
[2023-01-31] MEDS: DONEPEZIL HCL 5 MG TABLET PO (21:07)
[2023-02-01 05:37] VITALS: BP 158/54; PULSE 51; RESP 14; TEMP 36.9; O2SAT 97
[2023-02-01 06:44] LABS: Alanine Aminotransferase 15 U/L (6-35); Albumin Level 3.3 g/dL (3.5-5.1); Alkaline Phosphatase 49 U/L (38-126); Anion Gap 4 mmol/L (8-16); Aspartate Amino Transferase 29 U/L (14-36); Bilirubin,Total 1.2 mg/dL (0.2-1.3); Blood Urea Nitrogen 19 mg/dL (7-17); Calcium 8.1 mg/dL (8.4-10.2); Carbon Dioxide 25 mmol/L (22-30); Chloride 107 mmol/L (98-107); Estimated CRCL calculation 34 ml/min; Estimated Glomerular Filt Rate 49; Glucose 87 mg/dL (65-110); Potassium 4.1 mmol/L (3.4-5.0); Sodium 136 mmol/L (137-145)
[2023-02-01 06:56] LABS: Basophils Percent Auto 1.2 % (0.2-1.2); Eosinophils Absolute Auto 0.1 K/mm3 (0-0.3); Eosinophils Percent Auto 3.4 % (0-4.4); Hematocrit 33.5 % (37.0-47.0); Hemoglobin 10.2 g/dL (12.0-15.0); Immature Granulocyte Absolute 0.01 K/mm3 (0.00-0.031); Immature Granulocyte Percent A 0.3 % (0-0.5); Lymphocytes Absolute Auto 0.92 K/mm3 (0.9-3.2); Lymphocytes Percent Auto 28.5 % (18.3-44.2); Mean Corpuscular HGB Conc 30.4 g/dl (32-36); Mean Corpuscular Hemoglobin 27.5 pg (26-34); Mean Corpuscular Volume 90.3 fl (80-100); Mean Platelet Volume 11.5 fl (7.4-10.4); Monocytes Absolute Auto 0.3 K/mm3 (0.1-0.6); Monocytes Percent Auto 8.7 % (2.6-8.5); Neutrophils Absolute Auto 1.9 K/mm3 (1.3-6.7); Neutrophils Percent Auto 57.9 % (45.5-73.1); Platelet Count Result 54 k/mm3 (150-375); Red Blood Count 3.71 M/mm3 (4.2-5.4); White Blood Count 3.2 K/mm3 (4.5-10.0)
--- NOTE | 2023-02-01 07:40 | PM.DS ---
DS: Admitting Diagnosis Discharge Date 02/01/23 Admitting Diagnosis Anemia, UTI DS: Discharge Diagnosis Discharge Diagnosis (1) Urinary tract infection: Code(s): N39.0 - Urinary tract infection, site not specified Status: Acute Assessment and Plan: Urine in nitrate and leukocyte esterase positive with 4+ bacteria, 51-100 RBC, and > 100 WBC. Rocephin 4 doses. Urine culture with multiple resistance. ID pharmacist and I discussed plan and will give 1 x dose of Gentamicin tomorrow for an uncomplicated cystis. CT abdomen/pelvis revealing Cirrhotic changes of the liver with small amount of ascites. (2) Heme positive stool: Code(s): R19.5 - Other fecal abnormalities Status: Acute Assessment and Plan: Stool is heme positive; may very well be due to bleeding from tooth extraction site. GI consulted and appreciate recommendations EGD 01/31-gastritis and non-bleeding esophageal varices as well as hiatial hernia. Colonoscopy with diverticulosis. Started on PPI and non-selective beta homero for varices. (3) Cirrhosis: Code(s): K74.60 - Unspecified cirrhosis of liver Status: Acute Assessment and Plan: Ct abdomen and pelvis showing cirrhotic changes with small volume ascites. GI recommending EGD to rule out varices. could likely explain patients increase ability to bleed and pancytopenia. Pt does have hx of cirrhosis. (4) Acute blood loss anemia: Code(s): D62 - Acute posthemorrhagic anemia Status: Acute Assessment and Plan: Baseline hemoglobin looks to be right around 10. Hemoglobin hematocrit found to be 6.4/21.9 and she received 2 units of PRBCs. Trend H&H Anemia labs were not drawn prior to transfusion. GI consulted appreciate recommendations (5) Pancytopenia: Code(s): D61.818 - Other pancytopenia Status: Acute Assessment and Plan: A chronic finding for this patient of unclear etiology. Brysonior. (6) Right thyroid nodule: Code(s): E04.1 - Nontoxic single thyroid nodule Status: Acute Assessment and Plan: Needs outpatient follow-up. (7) Chronic kidney disease, stage 3: Code(s): N18.30 - Chronic kidney disease, stage 3 unspecified Status: Acute Assessment and Plan: Creatinine is stable on review of previous labs. Monitor. (8) Hypertension: Code(s): I10 - Essential (primary) hypertension Status: Acute Assessment and Plan: Blood pressures were reviewed and they are stable. Continue antihypertensives and monitor. Plan IV gentamycin dose tomorrow and likely d/c back to her facility depending on her presentation. DS: Summary Hospital Course Hospital Course: This is a 67-year-old female with history of stroke, dementia, coronary artery disease, hypertension, hyperlipidemia, chronic kidney disease stage 3, anxiety, and chronic pancytopenia who presented to the emergency department via EMS from a local long-term for evaluation of back pain and weakness. She is alert and oriented x1 at baseline and is not able to provide a good history and as such a majority of the following is obtained via a review of her EMR as well as information obtained from her . Yesterday she complained of back pain which she could not really describe and today staff at her long-term noticed that she was weak and was unable to transfer as usual. There was no mention of cold or flu symptoms, fever, vomiting, or diarrhea. At the time of my evaluation she is in good spirits and her only complaint is that of mild discomfort in the left lower jaw where she had the tooth pulled. She reports having a poor appetite but denies nausea and vomiting. She is not currently having back discomfort and she does not recall having back pain yesterday. 01/31:? Patient seen at the bedside after returning from her EGD.? Her is at the bedside and her clinic care is
[2023-02-01] MEDS: MEMANTINE 10 MG TABLET PO (09:00)
[2023-02-01] MEDS: SACCHAROMYCES BOULARDII 250 MG CAPSULE PO (09:00)
[2023-02-01] MEDS: amLODIPine BESYLATE 2.5 MG TABLET PO (09:00)
[2023-02-01] MEDS: SERTRALINE HCL 50 MG TABLET PO (09:00)
[2023-02-01] MEDS: PANTOPRAZOLE 40 MG TABLET PO (09:00)
[2023-02-01] MEDS: CHOLECALCIFEROL 1,000 UNITS TABLET 2000 UNITS PO (09:00)
[2023-02-01] MEDS: POTASSIUM CHLORIDE 20 MEQ ER TABLET PO (09:00)
[2023-02-01 09:06] VITALS: PULSE 56; RESP 16; O2SAT 97
[2023-02-01] MEDS: PROPRANOLOL HCL 10 MG TABLET PO (09:06)
[2023-02-01 10:39] LABS: SARS-CoV-2 RNA PCR Negative (Negative)
--- NOTE | 2023-02-01 12:47 | WPDANESPN ---
Anes - Prog Note Post-Op Date/Time: 02/01/23 12:47 Cardiovascular status: other (HTN) Respiratory status: normal Airway patency: baseline Mental status: baseline Post-Op hydration status: normal Vital Signs: Last Vital Signs Temp 36.9 C 02/01/23 05:37 Pulse 56 L 02/01/23 09:06 Resp 16 02/01/23 09:06 BP 158/54 H 02/01/23 05:37 Pulse Ox 97 02/01/23 09:06 O2 Del Method Room Air 02/01/23 09:06 O2 Flow Rate 2 01/31/23 10:24 Pain Score (VAS): 0/10 I/O: Intake & Output 01/31/23 02/01/23 02/01/23 23:59 07:59 15:59 Intake Total 222 500 346.375 Balance 222 500 346.375 Laboratory Tests 02/01/23 05:55 02/01/23 05:55 01/31/23 02/01/23 02/01/23 05:51 05:55 09:55 WBC 3.2 L RBC 3.71 L Hgb 10.2 L Hct 33.5 L MCV 90.3 MCH 27.5 MCHC 30.4 L RDW 15.0 H Plt Count 54 L MPV 11.5 H Immature Gran % (Auto) 0.3 Neut % (Auto) 57.9 Lymph % (Auto) 28.5 [place] % (Auto) 8.7 H Eos % (Auto) 3.4 Baso % (Auto) 1.2 Lymph # (Auto) 0.92 [place] # (Auto) 0.3 Eos # (Auto) 0.1 Baso # (Auto) 0.0 Abs Immat Gran (auto) 0.01 Absolute Neuts (auto) 1.9 Absolute Nucleated RBC 0.0 Nucleated RBC % 0.0 % Immature Plt Fraction 6.0 Sodium 136 L Potassium 4.1 Chloride 107 Carbon Dioxide 25 Anion Gap 4 L BUN 19 H Creatinine 1.10 H Estim Creat Clear Calc 34 Estimated GFR 49 L Glucose 87 Calcium 8.1 L % Saturation 10 L Ferritin 13.70 Total Bilirubin 1.2 AST 29 ALT 15 Alkaline Phosphatase 49 Total Protein 6.0 L Albumin 3.3 L SARS-CoV-2 RNA (RT-PCR) Negative Microbiology 01/28/23 10:04 Urine Catheterized Urine Culture - Final Escherichia Coli Post-procedural complaints: none Patient Feedback: Patient satisfied with anesthetic care.
[2023-02-01 14:00] VITALS: BP 100/68; PULSE 50; RESP 16; TEMP 36.8; O2SAT 98
--- NOTE | 2023-02-01 14:17 | WPDGIPROGNO ---
Progress Note: A&P Assessment and Plan (1) Cirrhosis: Code(s): K74.60 - Unspecified cirrhosis of liver Status: Acute Assessment and Plan: work up pending, ? [facility] related compensated follow-up office, will need liver us every 6 months for hcc surveillance (2) Esophageal varices: Code(s): I85.00 - Esophageal varices without bleeding Status: Acute Assessment and Plan: non bleeding she can go home with non-selective b-homero egd in 1 year to reassess (3) Acute on chronic anemia: Code(s): D64.9 - Anemia, unspecified Status: Acute (4) Pancytopenia: Code(s): D61.818 - Other pancytopenia Status: Acute Assessment and Plan: probably partially explain by cirrhosis (5) Urinary tract infection: Code(s): N39.0 - Urinary tract infection, site not specified Status: Acute (6) Heme positive stool: Code(s): R19.5 - Other fecal abnormalities Status: Acute Subjective Date/time seen: 02/01/23 14:17 Interval history: egd yesterday with EV, no bleeding colonoscopy with diverticulosis, no signs of bleeding at bedside, patient is comfortable Review of Systems Review of Systems: All systems reviewed & are unremarkable except as noted in HPI and below Exam Const: General: comfortable HENMT: Face/Nose/Sinus: Normal nares present Eyes: Sclera: sclerae normal Neck: Neck: supple Resp: Effort & Inspection: normal respiratory effort Cardio: Rate: regular rate GI: GI Palp: Yes Soft to palpation, No Tenderness to palpation present (GI) and No Guarding due to palpation present (GI) Auscultation: normal bowel sounds Skin: General skin exam: no rashes or lesions noted Neuro: Speech: normal speech Other: awake and alert x1, pleasantly confused Extrem: General: normal to inspection Psych: Attitude: not belligerent Objective Data Vital Signs Vital Signs: Vital Signs - 24 hr 01/31/23 21:05 01/31/23 20:00 01/31/23 21:36 Temperature 98.0 F Pulse Rate 62 62 62 Respiratory Rate 14 13 Blood Pressure 134/76 Pulse Oximetry 97 97 Oxygen Delivery Room Air 02/01/23 05:37 02/01/23 09:06 02/01/23 09:06 Temperature 98.4 F Pulse Rate 51 L 56 L 56 L Respiratory Rate 14 16 Blood Pressure 158/54 H Pulse Oximetry 97 97 Oxygen Delivery Room Air Intake/Output Intake/Output: Intake & Output 01/29/23 01/30/23 01/31/23 02/01/23 23:59 23:59 23:59 23:59 Intake Total 3439 247 8863 1068.375 Balance 8713 986 4349 1068.375 Meds/Results Medications: Active Medications Generic Name Dose Route Start Last Admin Trade Name Freq PRN Reason Stop Dose Admin Acetaminophen 650 mg 01/28/23 21:48 Acetaminophen 325 Mg Tablet PO Q4H PRN Pain Amlodipine Besylate 2.5 mg 01/29/23 09:00 02/01/23 09:00 Amlodipine Besylate 2.5 Mg Tablet PO 2.5 mg DAILY JUAN F Administration Atorvastatin Calcium 40 mg 01/28/23 22:05 01/31/23 21:07 Atorvastatin 40 Mg Tablet PO 40 mg HS JUAN F Administration Donepezil HCl 5 mg 01/28/23 22:05 01/31/23 21:07 Donepezil Hcl 5 Mg Tablet PO 5 mg HS JUAN F Administration Memantine 10 mg 01/29/23 09:00 02/01/23 09:00 Memantine 10 Mg Tablet PO 10 mg BID JUAN F Administration Ondansetron HCl 4 mg 01/28/23 12:58 Ondansetron Inj 4 Mg/2 Ml Vial IV PUSH Q4H PRN Nausea Pantoprazole Sodium 40 mg 02/01/23 09:00 02/01/23 09:00 Pantoprazole 40 Mg Tablet PO 40 mg QAM JUAN F Administration Polyethylene Glycol 17 gm 01/28/23 21:48 Polyethylene Glycol 3350 17 Gm Powd.Pack PO DAILY PRN Constipation Potassium Chloride 20 meq 01/29/23 09:00 02/01/23 09:00 Potassium Chloride 20 Meq Er Tablet PO 20 meq DAILY JUAN F Administration Propranolol HCl 10 mg 01/31/23 21:00 02/01/23 09:06 Propranolol Hcl 10 Mg Tablet PO 10 mg Q12HR JUAN F Administration Saccharomyces Boulardii 250 mg 01/29/23 0
[2023-02-02 11:42] LABS: Mitochondrial (M2) Ab (IgG) <=20.0 U (<=20.0)
[2023-02-02 20:20] LABS: Ceruloplasmin 24 mg/dL (18-53)
== END 2023-02-01 15:50 | DRG 690 ==
LOC: ANHED 13:02 → ANH3MEDSUR 14:10
PROVIDERS: Internal Medicine Critical Care Medicine; Internal Medicine Gastroenterology; Physician Assistant; Admitting Provider Internal Medicine; Emergency Provider Physician Assistant; PCP Family Medicine; Visit Provider Nurse Practitioner Acute Care
PROC: 0DJ08ZZ Inspection of Upper Intestinal Tract, Via Natural or Artificial Opening Endoscopic (ICD-10-PCS; CPT 43235; principal; 2023-01-31 13:30)
DX: N39.0 Urinary tract infection, site not specified (principal); D62 Acute posthemorrhagic anemia; D61.818 Other pancytopenia; I85.00 Esophageal varices without bleeding; B96.20 Unspecified Escherichia coli [E. coli] as the cause of diseases classified elsewhere; Z20.822 Contact with and (suspected) exposure to COVID-19; K74.60 Unspecified cirrhosis of liver; R19.5 Other fecal abnormalities; E04.1 Nontoxic single thyroid nodule; K29.70 Gastritis, unspecified, without bleeding; K44.9 Diaphragmatic hernia without obstruction or gangrene; K57.30 Diverticulosis of large intestine without perforation or abscess without bleeding; I12.9 Hypertensive chronic kidney disease with stage 1 through stage 4 chronic kidney disease, or unspecified chronic kidney disease; N18.30 Chronic kidney disease, stage 3 unspecified; E78.5 Hyperlipidemia, unspecified; F03.90 Unspecified dementia, unspecified severity, without behavioral disturbance, psychotic disturbance, mood disturbance, and anxiety; I25.10 Atherosclerotic heart disease of native coronary artery without angina pectoris; F41.9 Anxiety disorder, unspecified; M81.0 Age-related osteoporosis without current pathological fracture; R29.810 Facial weakness; R47.1 Dysarthria and anarthria; Z66 Do not resuscitate; Z96.641 Presence of right artificial hip joint; Z86.73 Personal history of transient ischemic attack (TIA), and cerebral infarction without residual deficits; I25.2 Old myocardial infarction; Z86.19 Personal history of other infectious and parasitic diseases; Z90.710 Acquired absence of both cervix and uterus; Z87.891 Personal history of nicotine dependence; Z99.3 Dependence on wheelchair
CPT/HCPCS: 36415; 36430; 70450; 70486; 72125; 72128; 72131; 73521; 74176; 80048; 80053; 81001; 82104; 82390; 82728; 83520; 83540; 83550; 83735; 85014; 85018; 85025; 85027; 85055; 86038; 86850; 86900; 86901; 86923; 87077; 87086; 87088; 87186; 87635; 96365; 99285; A9270; G0378; J0696; J1580; J2704; J7030; J7050; J7120; P9016

== ENCOUNTER 2023-09-27 05:21 | Emergency (ER) | payer MEDICARE, MEDICAID, SELFPAY ==
--- NOTE | ~2023-09-27 | CT_ITS ---
Noncontrast CT scan of the cervical spine Technique: Multiple contiguous axial [address] images of the cervical spine were obtained and rec onstructed in 2D sagittal and coronal planes on the acquisition scanner. Dose reduction technique was used on this scan by utilizing automated exposure control, adjustment of the mA and/or kV according to patient size. The dose-length product (DLP) was 152.37 mGy-cm. Clinical History: Pain Findings: No fractures or dislocations. Unremarkable visualized bony structures. The intervertebral disc spaces are preserved. No prevertebral soft tissue swelling. Impression: No fracture or subluxation of the cervical spine. Reviewed, dictated and finalized at location . Impression: No fracture or subluxation of the cervical spine.
--- NOTE | ~2023-09-27 | CT_ITS ---
CT head without contrast Indication: Status post fall COMPARISON: 01/28/2023 Technique: Serial scans were obtained through the brain without the administration of contrast. Dose reduction technique was used on this scan by utilizing automated exposure control and iterative recon struction technique. The dose-length product (DLP) was 1362.00 mGy-cm. Findings: There is no evidence of intracranial hemorrhage, mass lesion, or acute infarct. The ventri cles and subarachnoid spaces are dilated, consistent with moderate atrophy. Low attenuation regions are seen within the periventricular white matter bilaterally, likely representing changes from chroni c microvascular ischemic disease. There is no evidence of edema, mass effect or midline shift. The visualized paranasal sinuses and mastoid air cells are clear. Impression: No intracranial hemorrhage, mass, or acute infarct. Atrophy and chronic white matter changes, as above. Reviewed, dictated and finalized at location . Impression: No intracranial hemorrhage, mass, or acute infarct. Atrophy and chronic white matter changes, as above.
--- NOTE | ~2023-09-27 | XR_ITS ---
Portable chest x-ray Comparison: 05/27/2022 Clinical History: Pain Findings: Lungs are clear, without focal consolidation or pleural effusion. Cardiomediastinal silho uette is stable. Bones and soft tissues are unremarkable. Impression: Clear lungs. Reviewed, dictated and finalized at location . Impression: Clear lungs.
--- NOTE | ~2023-09-27 | CT_ITS ---
Noncontrast CT scan of the lumbar spine CLINICAL HISTORY: Back pain, status post fall TECHNIQUE: Axial noncontrast imaging of the lumbar spine was performed. Sagittal and coronal reformat ron images were constructed. Dose reduction technique was used on this scan by utilizing automated ex posure control and iterative reconstruction technique. The dose-length product (DLP) was 721.12 mGy-c m. FINDINGS: There is no fracture or subluxation of the lumbar spine. Vertebral bodies maintain normal h eight and alignment. Intervertebral disc spaces are well preserved. At L1-L2, there is no significant disc bulge or herniation. No spinal canal stenosis or definite neur al foraminal narrowing. At L2-L3, there is minimal disc bulge. No spinal canal stenosis or definite neural foraminal narrowin g. L3-L4, there is mild disc bulge and mild facet arthropathy. No kelly central canal stenosis. Neural f oramina are preserved. At L4-L5, there is mild disc bulge and moderate facet arthropathy. There is minimal central canal bobby nosis. Neural foramina are preserved. At L5-S1, there is mild disc bulge. No spinal canal stenosis. There is moderate bilateral neural fora donald narrowing. There is mild facet arthropathy. Paravertebral soft tissues are unremarkable. There are extensive atherosclerotic calcifications of th e aorta. Impression: No acute fracture or sublocation. Mild spondylosis overall, as detailed above. Reviewed, dictated and finalized at [facility]. Impression: No acute fracture or sublocation. Mild spondylosis overall, as detailed above.
--- NOTE | ~2023-09-27 | XR_ITS ---
Left Knee Technique: AP, lateral, and sunrise views were obtained. Clinical History: Pain Findings: There is a bipartite patella, the probable additional subtle transverse nondisplaced fractu res of the mid body of the patella. No other fracture or dislocation seen. Joint spaces are preserved without degenerative or erosive change. Moderate joint effusion noted. Impression: Probably subtle transverse nondisplaced fracture of the mid body of the patella. Bipartite patella al so noted. Moderate joint effusion. Reviewed, dictated and finalized at location M. Impression: Probably subtle transverse nondisplaced fracture of the mid body of the patella . Bipartite patella also noted. Moderate joint effusion.
--- NOTE | ~2023-09-27 | XR_ITS ---
AP view of the pelvis Clinical history: Pain Findings: No acute fracture or dislocation is seen. Right hip arthroplasty in place, without evidence of hardware complication. Left hip joint space is preserved.. Soft tissues are unremarkable. Impression: No acute abnormality identified. Right hip arthroplasty in place. Reviewed, dictated and finalized at location . Impression: No acute abnormality identified. Right hip arthroplasty in place.
[2023-09-27 05:25] VITALS: BP 147/95; PULSE 58; RESP 16; TEMP 36.5; O2SAT 98
--- NOTE | 2023-09-27 06:39 | ED.GENADULT ---
HPI - General Adult General Chief complaint: Fall Stated complaint: fall from bed Time Seen by Provider: 09/27/23 05:28 History of Present Illness HPI narrative: This is a 67-year-old female presenting from the residential after a fall. Patient rolled out of bed. She is A&O times 1-2 at baseline. She is currently complaining pain to her face neck lower back and left knee. Denies chest pain difficulty breathing fevers chills nausea vomiting or diarrhea. Related Data Home Medications Medication Instructions Recorded Confirmed acetaminophen 325 mg tablet 650 mg PO Q4H PRN Pain 04/28/22 09/06/23 (Tylenol) alendronate 70 mg tablet (Fosamax) 70 mg PO WEEKLY 04/28/22 09/06/23 amlodipine 2.5 mg tablet (Norvasc) 2.5 mg PO DAILY 04/28/22 09/06/23 atorvastatin 40 mg tablet (Lipitor) 40 mg PO HS 04/28/22 09/06/23 cholecalciferol (vitamin D3) 25 50 mcg PO DAILY 04/28/22 09/06/23 mcg (1,000 unit) tablet (Vitamin D3) donepezil 5 mg tablet (Aricept) 5 mg PO HS 04/28/22 09/06/23 memantine 10 mg tablet (Namenda) 10 mg PO BID 04/28/22 09/06/23 polyethylene glycol 3350 17 gram 17 g PO DAILY PRN Constipation 04/28/22 09/06/23 oral powder packet (Miralax) sennosides 8.6 mg-docusate sodium 8.5 - 50 tablet PO HS PRN 04/28/22 09/06/23 50 mg tablet (Senna Plus) Constipation sertraline 50 mg tablet (Zoloft) 50 mg PO DAILY 04/28/22 09/06/23 Saccharomyces boulardii 250 mg 250 mg PO BID 05/27/22 09/06/23 capsule (Florastor) famotidine 10 mg tablet 20 mg PO PRN heartburn 05/27/22 09/06/23 potassium chloride 20 mEq 20 meq PO DAILY 05/27/22 09/06/23 tablet,extended release amoxicillin 500 mg capsule 500 mg PO TID 01/28/23 09/06/23 ibuprofen 800 mg tablet 800 mg PO QID PRN Pain 01/28/23 09/06/23 ondansetron HCl 4 mg tablet 4 mg PO PRN 01/28/23 09/06/23 Allergies Allergy/AdvReac Type Severity Reaction Status Date / Time lisinopril Allergy Unknown Verified 05/27/22 14:46 [facility] Past Medical History Medical History Acute on chronic anemia Anxiety Cerebrovascular accident Chronic kidney disease, stage 3 Cirrhosis Coronary artery disease Dementia Esophageal varices Hepatitis C Hyperlipidemia Hypertension Major depression Myocardial infarction Osteoporosis Pancytopenia Surgical History Surgical History History of cardiac catheterization History of cystoscopy History of hysterectomy History of percutaneous coronary intervention History of right hip replacement Family History Family History Sibling Acute myocardial infarction Mother Cancer Social History Social History Social History: . Has 2 sons. 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 No alcohol or illicit substance use. Surrogate medical decision maker: Kwabena Carter, spouse. Code status: Do not resuscitate. Smoking packs per day: 1 Smoking cigarettes per day: 20.0 Years smoked: 40 Smoking pack-years: 40.00 Smoking status: Former smoker Alcohol intake: never Substance use: never Lack of Transportation: No Lack of Food: Never True Current Housing: I Have Housing Concerned About Future Housing: No Difficulty Paying Gas/Electric Bills: No Difficulty Paying for Meds: No Currently Unemployed: No Education: Decline to Answer Difficulty w/ Childcare or Family Care: No Spiritual care concerns: No Exam Narrative: APPEARANCE: Patient is frail, A&O times 1-2 Head: contusion on her left cheek EYES: EOMI, NOSE: Atraumatic NECK: Trachea midline RESPIRATORY: No increased rate of breathing CTAB CARDIOVASCULAR: RRR, ABDOMINAL: Non-distended MUSCULOSKELETAl: head to toe trauma exam performed. Findings significant for Bruising and pain over the left knee NEURO: Alert. Moving 4/4 extremities SKIN:: Warm, dry. N
[2023-09-27 07:14] VITALS: PULSE 63; RESP 15; O2SAT 95
[2023-09-27 08:29] VITALS: BP 125/83; PULSE 65; RESP 17; O2SAT 98
== END 2023-09-27 08:53 ==
PROVIDERS: Emergency Provider Emergency Medicine; PCP Family Medicine
DX: S82.035A Nondisplaced transverse fracture of left patella, initial encounter for closed fracture (principal); S00.83XA Contusion of other part of head, initial encounter; F03.90 Unspecified dementia, unspecified severity, without behavioral disturbance, psychotic disturbance, mood disturbance, and anxiety; I12.9 Hypertensive chronic kidney disease with stage 1 through stage 4 chronic kidney disease, or unspecified chronic kidney disease; N18.30 Chronic kidney disease, stage 3 unspecified; I25.10 Atherosclerotic heart disease of native coronary artery without angina pectoris; I25.2 Old myocardial infarction; E78.5 Hyperlipidemia, unspecified; D64.9 Anemia, unspecified; K74.60 Unspecified cirrhosis of liver; M81.0 Age-related osteoporosis without current pathological fracture; F41.9 Anxiety disorder, unspecified; F32.A Depression, unspecified; Z66 Do not resuscitate; Z96.641 Presence of right artificial hip joint; Z87.891 Personal history of nicotine dependence; Z90.710 Acquired absence of both cervix and uterus; M47.816 Spondylosis without myelopathy or radiculopathy, lumbar region; W06.XXXA Fall from bed, initial encounter
CPT/HCPCS: 70450; 71045; 72125; 72131; 72170; 73562; 99284

== ENCOUNTER 2024-02-07 05:09 | Emergency (ER) | payer MEDICARE, MEDICAID, SELFPAY ==
--- NOTE | ~2024-02-07 | CT_ITS ---
CT head without contrast Indication: Status post fall COMPARISON: 09/27/2023 Technique: Serial scans were obtained through the brain without the administration of contrast. Dose reduction technique was used on this scan by utilizing automated exposure control and iterative recon struction technique. The dose-length product (DLP) was 605.33 mGy-cm. Findings: There is no evidence of intracranial hemorrhage, mass lesion, or acute infarct. The ventri cles and subarachnoid spaces are dilated, consistent with moderate to severe atrophy. Low attenuatio n regions are seen within the periventricular white matter bilaterally, likely representing changes f rom chronic microvascular ischemic disease. There is no evidence of edema, mass effect or midline sh ift. The visualized paranasal sinuses and mastoid air cells are clear. Impression: No intracranial hemorrhage, mass, or acute infarct. Atrophy and chronic white matter changes, as above. Reviewed, dictated and finalized at location . Impression: No intracranial hemorrhage, mass, or acute infarct. Atrophy and chronic white matter changes, as above.
--- NOTE | ~2024-02-07 | XR_ITS ---
AP and oblique views of the right ribs, and PA and lateral chest radiographs Clinical History: Pain COMPARISON: 09/27/2023 Findings: No rib fracture is seen. Osseous alignment is anatomic. Stable calcified granuloma medial r ight upper lobe. Lungs are otherwise clear, without focal consolidation or pleural effusion. Cardiome diastinal contour is within normal limits. Large ovoid densely calcified structure present in the rig ht upper quadrant, possibly large gallstone.. Impression: No rib fracture is seen. Clear lungs. Large suspected gallstone in the right upper quadrant. Reviewed, dictated and finalized at location [facility]. Impression: No rib fracture is seen. Clear lungs. Large suspected gallstone in the right upper quadrant.
--- NOTE | ~2024-02-07 | CT_ITS ---
Noncontrast CT scan of the cervical spine Technique: Multiple contiguous axial [address] images of the cervical spine were obtained and rec onstructed in 2D sagittal and coronal planes on the acquisition scanner. Dose reduction technique was used on this scan by utilizing automated exposure control, adjustment of the mA and/or kV according to patient size. The dose-length product (DLP) was 164.98 mGy-cm. Clinical History: Pain Findings: No fractures or dislocations. Unremarkable visualized bony structures. The intervertebral disc spaces are preserved. No prevertebral soft tissue swelling. Impression: No fracture or subluxation of the cervical spine. Reviewed, dictated and finalized at location . Impression: No fracture or subluxation of the cervical spine.
[2024-02-07 05:12] VITALS: BP 113/79; PULSE 78; RESP 18; TEMP 36.6; O2SAT 96
[2024-02-07 06:33] VITALS: BP 111/87; PULSE 55; RESP 17; O2SAT 100
--- NOTE | 2024-02-07 08:17 | ED.GENADULT ---
HPI - General Adult General Chief complaint: Fall Stated complaint: FALL, BACK PAIN Time Seen by Provider: 02/07/24 07:04 History of Present Illness HPI narrative: Patient is a 68-year-old female who presents ER after a fall from her facility. Patient was started on an antibiotic yesterday for UTI. Patient was wrapped in blankets and has felt she had a cushion fall from a short height. It is unknown whether she lost consciousness or hit her head. She is on a blood thinner. She has dementia. Patient does report some right-sided back pain in the chest wall. Related Data Home Medications Medication Instructions Recorded Confirmed acetaminophen 325 mg tablet 650 mg PO Q4H PRN Pain 04/28/22 10/04/23 (Tylenol) alendronate 70 mg tablet (Fosamax) 70 mg PO WEEKLY 04/28/22 10/04/23 amlodipine 2.5 mg tablet (Norvasc) 2.5 mg PO DAILY 04/28/22 10/04/23 atorvastatin 40 mg tablet (Lipitor) 40 mg PO HS 04/28/22 10/04/23 cholecalciferol (vitamin D3) 25 50 mcg PO DAILY 04/28/22 10/04/23 mcg (1,000 unit) tablet (Vitamin D3) donepezil 5 mg tablet (Aricept) 5 mg PO HS 04/28/22 10/04/23 memantine 10 mg tablet (Namenda) 10 mg PO BID 04/28/22 10/04/23 polyethylene glycol 3350 17 gram 17 g PO DAILY PRN Constipation 04/28/22 10/04/23 oral powder packet (Miralax) sennosides 8.6 mg-docusate sodium 8.5 - 50 tablet PO HS PRN 04/28/22 10/04/23 50 mg tablet (Senna Plus) Constipation sertraline 50 mg tablet (Zoloft) 50 mg PO DAILY 04/28/22 10/04/23 Saccharomyces boulardii 250 mg 250 mg PO BID 05/27/22 10/04/23 capsule (Florastor) famotidine 10 mg tablet 20 mg PO PRN heartburn 05/27/22 10/04/23 potassium chloride 20 mEq 20 meq PO DAILY 05/27/22 10/04/23 tablet,extended release amoxicillin 500 mg capsule 500 mg PO TID 01/28/23 10/04/23 ibuprofen 800 mg tablet 800 mg PO QID PRN Pain 01/28/23 10/04/23 ondansetron HCl 4 mg tablet 4 mg PO PRN 01/28/23 10/04/23 Allergies Allergy/AdvReac Type Severity Reaction Status Date / Time lisinopril Allergy Unknown Verified 10/02/23 08:41 Review of Systems Review of Systems: ROS unobtainable: Yes unobtainable due to mental status PMFSH Past Medical History Medical History Acute on chronic anemia Anxiety Cerebrovascular accident Chronic kidney disease, stage 3 Cirrhosis Coronary artery disease Dementia Esophageal varices Hepatitis C Hyperlipidemia Hypertension Major depression Myocardial infarction Osteoporosis Pancytopenia Surgical History Surgical History History of cardiac catheterization History of cystoscopy History of hysterectomy History of percutaneous coronary intervention History of right hip replacement Family History Family History (Updated 10/02/23 @ 14:59 by Deisi Terry [facility]) Sibling Acute myocardial infarction Mother Cancer Unknown Heart disease Hypertension Cerebrovascular accident Social History Social History Social History: . Has 2 sons. 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 No alcohol or illicit substance use. Surrogate medical decision maker: Kwabena Carter, spouse. Code status: Do not resuscitate. Smoking packs per day: 1 Smoking cigarettes per day: 20.0 Years smoked: 40 Smoking pack-years: 40.00 Smoking status: Former smoker Alcohol intake: never Substance use: never Lack of Transportation: No Lack of Food: Never True Current Housing: I Have Housing Concerned About Future Housing: No Difficulty Paying Gas/Electric Bills: No Difficulty Paying for Meds: No Currently Unemployed: No Education: Decline to Answer Difficulty w/ Childcare or Family Care: No Spiritual care concerns: No Exam Narrative: GENERAL: Well-appearing, well-nourished, and in no acute distress. HEAD: Normocephalic, atraumatic. ENT: Mucous membranes moist. CHEST: Cl
[2024-02-07 08:35] VITALS: BP 110/71; PULSE 71; RESP 18; O2SAT 97
== END 2024-02-07 09:15 ==
PROVIDERS: Emergency Provider Emergency Medicine; PCP Family Medicine
DX: M54.6 Pain in thoracic spine (principal); I12.9 Hypertensive chronic kidney disease with stage 1 through stage 4 chronic kidney disease, or unspecified chronic kidney disease; N18.30 Chronic kidney disease, stage 3 unspecified; I25.2 Old myocardial infarction; F03.90 Unspecified dementia, unspecified severity, without behavioral disturbance, psychotic disturbance, mood disturbance, and anxiety; Z86.73 Personal history of transient ischemic attack (TIA), and cerebral infarction without residual deficits; Z87.891 Personal history of nicotine dependence; W19.XXXA Unspecified fall, initial encounter
CPT/HCPCS: 70450; 71046; 71100; 72125; 99284

== ENCOUNTER 2024-03-05 01:30 | Day surgery (SDC) | payer MEDICARE, MEDICAID, SELFPAY ==
[2024-03-05 12:57] VITALS: BP 124/74; PULSE 62; RESP 18; TEMP 36.2; O2SAT 99; BMI 20.2
[2024-03-05] MEDS: LACTATED RINGERS 1,000 ML 150 ML IV CONT (13:26)
--- NOTE | 2024-03-05 13:29 | WPDANESEPPF ---
Anes - Initial Pre Proc Eval Procedure: Operation Date: 03/05/24 14:00 Proposed Procedures p Esophagogastroduodenoscopy - Andre Rivas MD Date/Time: 03/05/24 13:29 Surgeon: Andre Rivas MD Pre Op Diagnosis: Esophageal varices without bleeding Patient Data Age: 68 Gender: F Height: 1.6 m Weight: 52 kg Last Vital Signs Temp 97.2 F L 03/05/24 12:57 Pulse 62 03/05/24 12:57 Resp 18 03/05/24 12:57 BP 124/74 03/05/24 12:57 Pulse Ox 99 03/05/24 12:57 O2 Del Method Room Air 03/05/24 12:57 Allergies Allergy/AdvReac Type Severity Reaction Status Date / Time lisinopril Allergy Unknown Verified 03/05/24 12:53 Home Medications Medication Instructions Recorded Confirmed Type acetaminophen 325 mg tablet 650 mg PO Q4H PRN Pain 04/28/22 03/05/24 History (Tylenol) alendronate 70 mg tablet (Fosamax) 70 mg PO WEEKLY 04/28/22 03/05/24 History amlodipine 2.5 mg tablet (Norvasc) 2.5 mg PO DAILY 04/28/22 03/05/24 History cholecalciferol (vitamin D3) 25 50 mcg PO DAILY 04/28/22 03/05/24 History mcg (1,000 unit) tablet (Vitamin D3) memantine 10 mg tablet (Namenda) 10 mg PO BID 04/28/22 03/05/24 History polyethylene glycol 3350 17 gram 17 g PO DAILY PRN Constipation 04/28/22 03/05/24 History oral powder packet (Miralax) sennosides 8.6 mg-docusate sodium 8.5 - 50 tablet PO HS PRN 04/28/22 03/05/24 History 50 mg tablet (Senna Plus) Constipation sertraline 50 mg tablet (Zoloft) 50 mg PO DAILY 04/28/22 03/05/24 History Saccharomyces boulardii 250 mg 250 mg PO BID 05/27/22 03/05/24 History capsule (Florastor) famotidine 10 mg tablet 20 mg PO PRN PRN heartburn 05/27/22 03/05/24 History potassium chloride 20 mEq 20 meq PO DAILY 05/27/22 03/05/24 History tablet,extended release ibuprofen 800 mg tablet 800 mg PO QID PRN Pain 01/28/23 03/05/24 History pantoprazole 40 mg tablet,delayed 40 mg PO QAM gastritis #30 tabs 02/01/23 03/05/24 Rx release lamotrigine 25 mg tablet 50 mg PO DAILY 02/22/24 03/05/24 History memantine 10 mg tablet 10 mg PO BID 02/22/24 03/05/24 History Patient hx anesthesia problems: none Family hx anesthesia problems: none Results Review: All pre-operative results and documents have been reviewed as part of the pre-operative evaluation. [facility] Past Medical History Medical History Acute on chronic anemia Anxiety Cerebrovascular accident Chronic kidney disease, stage 3 Cirrhosis Coronary artery disease Dementia Esophageal varices Hepatitis C Hyperlipidemia Hypertension Major depression Myocardial infarction Osteoporosis Pancytopenia Surgical History Surgical History History of cardiac catheterization History of cystoscopy History of hysterectomy History of percutaneous coronary intervention History of right hip replacement Family History Family History (Updated 10/02/23 @ 14:59 by Deisi Terry CMA) Sibling Acute myocardial infarction Mother Cancer Unknown Heart disease Hypertension Cerebrovascular accident Social History Social History Social History: . Has 2 sons. 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 No alcohol or illicit substance use. Surrogate medical decision maker: Kwabena Carter, spouse. Code status: Do not resuscitate. Smoking packs per day: 1 Smoking cigarettes per day: 20.0 Years smoked: 40 Smoking pack-years: 40.00 Smoking status: Never smoker Alcohol intake: never Substance use: never Substance use type: does not use Lack of Transportation: No Lack of Food: Never True Current Housing: I Have Housing Concerned About Future Housing: No Difficulty Paying Gas/Electric Bills: No Difficulty Paying for Meds: No Currently Unemployed: No Education: Decline to Answer Difficulty w/ Childcare or Fami
--- NOTE | 2024-03-05 13:49 | PM.HPGS ---
History of Present Illness History of Present Illness Consent: Risks, benefits, and alternatives have been discussed and questions answered. Patient agrees to proceed with procedure. Chief complaint: Esophageal varices without bleeding Narrative: Ursula Zapata is a 68 year old female with cirrhosis, had small size EV last year, no signs of gib Review of Systems Review of Systems: All systems reviewed & are unremarkable except as noted in HPI and below PMFSH Past Medical History Medical History Acute on chronic anemia Anxiety Cerebrovascular accident Chronic kidney disease, stage 3 Cirrhosis Coronary artery disease Dementia Esophageal varices Hepatitis C Hyperlipidemia Hypertension Major depression Myocardial infarction Osteoporosis Pancytopenia Surgical History Surgical History History of cardiac catheterization History of cystoscopy History of hysterectomy History of percutaneous coronary intervention History of right hip replacement Family History Family History (Updated 10/02/23 @ 14:59 by Deisi Terry [facility]) Sibling Acute myocardial infarction Mother Cancer Unknown Heart disease Hypertension Cerebrovascular accident Social History Social History Social History: . Has 2 sons. 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 No alcohol or illicit substance use. Surrogate medical decision maker: Kwabena Carter, spouse. Code status: Do not resuscitate. Smoking packs per day: 1 Smoking cigarettes per day: 20.0 Years smoked: 40 Smoking pack-years: 40.00 Smoking status: Never smoker Alcohol intake: never Substance use: never Substance use type: does not use Lack of Transportation: No Lack of Food: Never True Current Housing: I Have Housing Concerned About Future Housing: No Difficulty Paying Gas/Electric Bills: No Difficulty Paying for Meds: No Currently Unemployed: No Education: Decline to Answer Difficulty w/ Childcare or Family Care: No Living arrangements: assisted Additional living arrangements comments: [facility] Spiritual care concerns: No Meds Home Medications and Allergies Home Medications Medication Instructions Recorded Confirmed Type acetaminophen 325 mg tablet 650 mg PO Q4H PRN Pain 04/28/22 03/05/24 History (Tylenol) alendronate 70 mg tablet (Fosamax) 70 mg PO WEEKLY 04/28/22 03/05/24 History amlodipine 2.5 mg tablet (Norvasc) 2.5 mg PO DAILY 04/28/22 03/05/24 History cholecalciferol (vitamin D3) 25 50 mcg PO DAILY 04/28/22 03/05/24 History mcg (1,000 unit) tablet (Vitamin D3) memantine 10 mg tablet (Namenda) 10 mg PO BID 04/28/22 03/05/24 History polyethylene glycol 3350 17 gram 17 g PO DAILY PRN Constipation 04/28/22 03/05/24 History oral powder packet (Miralax) sennosides 8.6 mg-docusate sodium 8.5 - 50 tablet PO HS PRN 04/28/22 03/05/24 History 50 mg tablet (Senna Plus) Constipation sertraline 50 mg tablet (Zoloft) 50 mg PO DAILY 04/28/22 03/05/24 History Saccharomyces boulardii 250 mg 250 mg PO BID 05/27/22 03/05/24 History capsule (Florastor) famotidine 10 mg tablet 20 mg PO PRN PRN heartburn 05/27/22 03/05/24 History potassium chloride 20 mEq 20 meq PO DAILY 05/27/22 03/05/24 History tablet,extended release ibuprofen 800 mg tablet 800 mg PO QID PRN Pain 01/28/23 03/05/24 History pantoprazole 40 mg tablet,delayed 40 mg PO QAM gastritis #30 tabs 02/01/23 03/05/24 Rx release lamotrigine 25 mg tablet 50 mg PO DAILY 02/22/24 03/05/24 History memantine 10 mg tablet 10 mg PO BID 02/22/24 03/05/24 History Allergies Allergy/AdvReac Type Severity Reaction Status Date / Time lisinopril Allergy Unknown Verified 03/05/24 12:53 Vital Signs Vital Signs - 24 hr 03/05/24 12:57 Temperature 97.2 F L Pulse Rate 62 Respirato
[2024-03-05 13:58] VITALS: BP 77/46; PULSE 58; RESP 14; O2SAT 99
[2024-03-05 14:08] VITALS: BP 135/77; PULSE 63; RESP 14; O2SAT 99
[2024-03-05 14:18] VITALS: BP 116/63; PULSE 74; RESP 18; O2SAT 99
== END 2024-03-05 14:44 | disposition home or self-care (01) ==
PROVIDERS: PCP Family Medicine; Visit Provider Internal Medicine Gastroenterology
PROC: 0DJ08ZZ Inspection of Upper Intestinal Tract, Via Natural or Artificial Opening Endoscopic (ICD-10-PCS; CPT 43235; principal; 2024-03-05 14:00)
DX: K74.60 Unspecified cirrhosis of liver (principal); I85.10 Secondary esophageal varices without bleeding; K29.70 Gastritis, unspecified, without bleeding; I12.9 Hypertensive chronic kidney disease with stage 1 through stage 4 chronic kidney disease, or unspecified chronic kidney disease; N18.30 Chronic kidney disease, stage 3 unspecified; I25.10 Atherosclerotic heart disease of native coronary artery without angina pectoris; F03.90 Unspecified dementia, unspecified severity, without behavioral disturbance, psychotic disturbance, mood disturbance, and anxiety; E78.5 Hyperlipidemia, unspecified; I25.2 Old myocardial infarction; M81.0 Age-related osteoporosis without current pathological fracture; F41.9 Anxiety disorder, unspecified; Z86.19 Personal history of other infectious and parasitic diseases; Z87.891 Personal history of nicotine dependence
CPT/HCPCS: 43235; J1596; J2003; J2371; J2704; J7120

== ENCOUNTER 2024-06-08 06:35 | Emergency (ER) | payer OTHER, SELFPAY ==
--- NOTE | ~2024-06-08 | XR_ITS ---
XR chest 1V portable DATE: 06/08/2024 07:08 INDICATION: Possible cerebrovascular accident TECHNIQUE: Portable supine AP chest on 06/08/2024 at 0707 hours COMPARISON: 02/07/2024 AP and lateral chest FINDINGS: There is extensive thoracic and abdominal aortic calcification addition to unfolding of the thoracic aorta. Heart size appears within normal range. There is mild infiltrate in the right mid and lower lung zones. The lungs otherwise appear clear. The no pleural effusion or pulmonary vascular congestion or pneumothorax. Osteopenia. IMPRESSION: Mild infiltrate in the right mid and lower lung zones; consider pneumonia, aspiration Reviewed, dictated and finalized at location [facility]. L CONSULTANT IMPRESSION: Mild infiltrate in the right mid and lower lung zones; consider pne umonia, aspiration
--- NOTE | ~2024-06-08 | CT_ITS ---
EXAMINATION: CT brain wo con DATE: 06/08/2024 07:18 INDICATION: Possible cerebrovascular accident TECHNIQUE: Computed tomography (CT) of the head was performed without intravenous contrast. The mA wa s adjusted according to patient size. Iterative reconstruction technique was employed. Exam dose: 68 1.00 mGy-cm total exam DLP. COMPARISON: 02/07/2024 CT brain FINDINGS: There is a 4.4 x 4.7 cm acute hematoma involving the mid and left cerebellum, with intraven tricular rupture, with blood noted in the dependent aspect of both occipital horns and extensive bila teral subarachnoid hemorrhage. Significant mass effect including effacement right lateral displacement of the fourth ventricle, effa cement of the cerebellar folia. There is increased dilatation of the third and lateral ventricles lik edenilson due to fourth ventricular outlet obstruction. There is worsening of the periventricular white mat ter hypodensity. There is prominent bilateral vertebral artery and carotid siphon internal carotid artery calcificatio n. Minimal lytic opacification of the right maxillary sinus. The paranasal sinuses and mastoid air cells are otherwise unremarkable. No fracture or bone destruction of the cranial vault. IMPRESSION: 4.4 x 4.7 cm mid to left cerebellar hematoma with compression and right lateral displace ment of the fourth ventricle with associated 3rd and 4th ventricular outlet obstruction/increased hyd rocephalus with worsening hypodensity of the periventricular white matter There is intraventricular rupture with blood in third ventricle and both lateral ventricle occipital horns and extensive bilateral subarachnoid hemorrhage Dr. Morris telephoned the report on 06/08 sagittal and 25 and 0029 hours to emergency room physician Dr. Keller Reviewed, dictated and finalized at [facility]. Reviewed, dictated and finalized at location [facility]. BURNER IMPRESSION: 4.4 x 4.7 cm mid to left cerebellar hematoma with compression and right lateral displacement of the fourth ventricle with associated 3rd and 4th ventricular outlet obstruction/increased hydrocephalus with worsening hypodensi ty of the periventricular white matter There is intraventricular rupture with blood in third ventricle and both latera l ventricle occipital horns and extensive bilateral subarachnoid hemorrhage Dr. Morris telephoned the report on 06/08 sagittal and 25 and 0029 hours to emerge ncy room physician Dr. Keller
[2024-06-08 06:57] VITALS: BP 161/88; PULSE 83; RESP 8; TEMP 38.3; O2SAT 96
--- NOTE | 2024-06-08 06:57 | ECG_ITS ---
Test Date: 2024-06-08 06:57:31 Measurements Intervals [place] Rate: 85 P: 26 IN: 144 QRS: -1 QRSD: 85 T: 73 QT: 348 QTc: 415 Interpretive Statements SINUS RHYTHM WITH FREQUENT VENTRICULAR PREMATURE COMPLEXES ANTEROSEPTAL MYOCARDIAL INFARCTION , PROBABLY RECENT [40+ ms Q WAVE IN V1-V4] ACUTE NH ABNORMAL ECG Electronically Signed On 06-08-2024 08:41:34 [place] by Rashad Rene M.D.
[2024-06-08 07:00] VITALS: BP 165/93; PULSE 86; RESP 14; O2SAT 93
[2024-06-08 07:35] LABS: Basophils Percent Auto 0.3 % (0.2-1.2); Eosinophils Percent Auto 0.1 % (0-4.4); Hematocrit 37.9 % (37.0-47.0); Hemoglobin 12.4 g/dL (12.0-15.0); Immature Granulocyte Absolute 0.08 K/mm3 (0.00-0.031); Immature Granulocyte Percent A 0.6 % (0-0.5); Immature Platelet Fraction Pct 1.8 % (0.9-11.2); Lymphocytes Absolute Auto 0.88 K/mm3 (0.9-3.2); Lymphocytes Percent Auto 6.7 % (18.3-44.2); Mean Corpuscular HGB Conc 32.7 g/dl (32-36); Mean Corpuscular Hemoglobin 29.8 pg (26-34); Mean Corpuscular Volume 91.1 fl (80-100); Mean Platelet Volume 9.7 fl (7.4-10.4); Monocytes Absolute Auto 0.8 K/mm3 (0.1-0.6); Monocytes Percent Auto 6.1 % (2.6-8.5); Neutrophils Absolute Auto 11.4 K/mm3 (1.3-6.7); Neutrophils Percent Auto 86.2 % (45.5-73.1); Platelet Count Result 108 k/mm3 (150-375); Red Blood Count 4.16 M/mm3 (4.2-5.4); Red Cell Distribution Width 14.6 % (11.5-14.5); White Blood Count 13.2 K/mm3 (4.5-10.0)
[2024-06-08 07:38] VITALS: PULSE 81
[2024-06-08 07:46] LABS: INR 1.3; Lactic Acid Reflex 1.7 mmol/L (0.7-2.0); Partial Thromboplastin Time 30.5 Seconds (22.3-36.8); Prothrombin Time 16.3 Seconds (11.1-14.7)
[2024-06-08 07:47] LABS: Alanine Aminotransferase 12 U/L (6-35); Albumin Level 3.8 g/dL (3.5-5.1); Alkaline Phosphatase 78 U/L (38-126); Anion Gap 6 mmol/L (4-12); Aspartate Amino Transferase 35 U/L (14-36); Bilirubin,Total 1.6 mg/dL (0.2-1.3); Blood Urea Nitrogen 23 mg/dL (7-17); Calcium 8.9 mg/dL (8.4-10.2); Carbon Dioxide 28 mmol/L (22-30); Chloride 108 mmol/L (98-107); Estimated CRCL calculation 30 ml/min; Estimated Glomerular Filt Rate 41; Glucose 107 mg/dL (65-110); Potassium 3.7 mmol/L (3.4-5.0); Sodium 142 mmol/L (137-145)
[2024-06-08 08:26] LABS: Troponin I 0.441 ng/mL (0.000-0.034)
[2024-06-08 08:40] VITALS: BP 160/90; PULSE 85; RESP 11; O2SAT 96
--- NOTE | 2024-06-08 08:44 | ED.AMS ---
HPI - Altered Mental Status General Chief Complaint: Altered Mental Status Stated Complaint: ams Time Seen by Provider: 06/08/24 07:00 History of Present Illness HPI narrative: Patient is a 68-year-old female who presents the ER with altered mental status. Last known well was 14 hours prior to arrival. Patient found unresponsive with snoring respirations. Patient has history of CVA and lives at a long-term. No history of trauma reported. Patient is a DNR. GCS 3. Related Data Home Medications ?Medication ?Instructions ?Recorded ?Confirmed ?Last Taken ?Type acetaminophen 325 mg tablet 650 mg PO Q4H PRN Pain 04/28/22 03/05/24 03/04/24 History (Tylenol) alendronate 70 mg tablet (Fosamax) 70 mg PO WEEKLY 04/28/22 03/05/24 03/04/24 History amlodipine 2.5 mg tablet (Norvasc) 2.5 mg PO DAILY 04/28/22 03/05/24 03/04/24 History cholecalciferol (vitamin D3) 25 50 mcg PO DAILY 04/28/22 03/05/24 03/04/24 History mcg (1,000 unit) tablet (Vitamin D3) memantine 10 mg tablet (Namenda) 10 mg PO BID 04/28/22 03/05/24 03/04/24 History polyethylene glycol 3350 17 gram 17 g PO DAILY PRN Constipation 04/28/22 03/05/24 03/04/24 History oral powder packet (Miralax) sennosides 8.6 mg-docusate sodium 8.5 - 50 tablet PO HS PRN 04/28/22 03/05/24 03/04/24 History 50 mg tablet (Senna Plus) Constipation sertraline 50 mg tablet (Zoloft) 50 mg PO DAILY 04/28/22 03/05/24 03/04/24 History Saccharomyces boulardii 250 mg 250 mg PO BID 05/27/22 03/05/24 03/04/24 History capsule (Florastor) famotidine 10 mg tablet 20 mg PO PRN PRN heartburn 05/27/22 03/05/24 03/04/24 History potassium chloride 20 mEq 20 meq PO DAILY 05/27/22 03/05/24 03/04/24 History tablet,extended release ibuprofen 800 mg tablet 800 mg PO QID PRN Pain 01/28/23 03/05/24 03/04/24 History lamotrigine 25 mg tablet 50 mg PO DAILY 02/22/24 03/05/24 03/04/24 History memantine 10 mg tablet 10 mg PO BID 02/22/24 03/05/24 03/04/24 History Allergies Allergy/AdvReac Type Severity Reaction Status Date / Time lisinopril Allergy Unknown Verified 03/05/24 12:53 Review of Systems Review of Systems: ROS unobtainable: Yes unobtainable due to medical condition PMFSH Past Medical History Medical History Acute on chronic anemia Anxiety Cerebrovascular accident Chronic kidney disease, stage 3 Cirrhosis Coronary artery disease Dementia Esophageal varices Hepatitis C Hyperlipidemia Hypertension Major depression Myocardial infarction Osteoporosis Pancytopenia Surgical History Surgical History History of cardiac catheterization History of cystoscopy History of hysterectomy History of percutaneous coronary intervention History of right hip replacement Family History Family History (Updated 10/02/23 @ 14:59 by Deisi Terry TECHNOLOGY ARCHITECT) Sibling Acute myocardial infarction Mother Cancer Unknown Heart disease Hypertension Cerebrovascular accident Social History Social History Social History: . Has 2 sons. 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 No alcohol or illicit substance use. Surrogate medical decision maker: Kwabena Carter, spouse. Code status: Do not resuscitate. Smoking packs per day: 1 Smoking cigarettes per day: 20.0 Years smoked: 40 Smoking pack-years: 40.00 Smoking status: Never smoker Alcohol intake: never Substance use: never Substance use type: does not use Lack of Transportation: No Lack of Food: Never True Current Housing: I Have Housing Concerned About Future Housing: No Difficulty Paying Gas/Electric Bills: No Difficulty Paying for Meds: No Currently Unemployed: No Education: Decline to Answer Difficulty w/ Childcare or Family Care: No Living arrangements: long-term Additional living arrangements comments: [facility] care concerns: No Exam Narrative: GENERAL: Ill-appearing, well-nourished, and in no acute distress. HEAD: Normocephalic, atraumatic. Eyes: Perrl, no extraocular movements. ENT: Mucous membranes moist. CHEST: Clear to auscultation. No respiratory distress. HEART: Regular rate and rhythm. Normal peripheral pulses. ABDOMEN: Soft, nontender, nondistended, normal active bowel sounds. EXTREMITIES: Spasticity of the left upper and lower extremity. No deformity. SKIN: Warm, dry, no rash. NEURO: GCS 3 Course Course Emergency Course: Patient with large intracranial hemorrhage. EKG with ST elevation troponin elevated. Discussed case with patient's who is POA. He would like to explore hospice care and care coordination has been contacted. Patient accepted as admission for general inpatient hospice under Dr. Ann. Vital Signs Vital signs: Vital Signs Temperature 100.9 F H 06/08/24 06:57 Pulse Rate 83 06/08/24 06:57 Respiratory Rate 8 L 06/08/24 06:57 Blood Pressure 161/88 H 06/08/24 06:57 Pulse Oximetry 96 06/08/24 06:57 Temperature 100.9 F H 06/08/24 06:57 Pulse Rate 87 06/08/24 10:02 Respiratory Rate 10 L 06/08/24 10:02 Blood Pressure 165/93 H 06/08/24 10:02 Pulse Oximetry 94 06/08/24 10:02 MDM - Altered Mental Status Lab Data 06/08/24 07:25 06/08/24 07:25 Labs: Lab Results 06/08/24 Range/Units 07:25 WBC 13.2 H (4.5-10.0) K/mm3 RBC 4.16 L (4.2-5.4) M/mm3 Hgb 12.4 (12.0-15.0) g/dL Hct 37.9 (37.0-47.0) % MCV 91.1 (80-100) fl MCH 29.8 (26-34) pg MCHC 32.7 (32-36) g/dl RDW 14.6 H (11.5-14.5) % Plt Count 108 L D (150-375) k/mm3 MPV 9.7 (7.4-10.4) fl Immature Gran % (Auto) 0.6 H (0-0.5) % Neut % (Auto) 86.2 H (45.5-73.1) % Lymph % (Auto) 6.7 L (18.3-44.2) % Alfalfa % (Auto) 6.1 (2.6-8.5) % Eos % (Auto) 0.1 (0-4.4) % Baso % (Auto) 0.3 (0.2-1.2) % Lymph # (Auto) 0.88 L (0.9-3.2) K/mm3 Alfalfa # (Auto) 0.8 H (0.1-0.6) K/mm3 Eos # (Auto) 0.0 (0-0.3) K/mm3 Baso # (Auto) 0.0 (0.0-0.1) K/mm3 Abs Immat Gran (auto) 0.08 H (0.00-0.031) K/mm3 Absolute Neuts (auto) 11.4 H (1.3-6.7) K/mm3 Absolute Nucleated RBC 0.000 (0.0-0.012) K/mm3 Nucleated RBC % 0.0 (0.0-0.2) % % Immature Plt Fraction 1.8 (0.9-11.2) % PT 16.3 H (11.1-14.7) Seconds INR 1.3 APTT 30.5 (22.3-36.8) Seconds Sodium 142 (137-145) mmol/L Potassium 3.7 (3.4-5.0) mmol/L Chloride 108 H (98-107) mmol/L Carbon Dioxide 28 (22-30) mmol/L Anion Gap 6 (4-12) mmol/L BUN 23 H (7-17) mg/dL Creatinine 1.28 H (0.7-1.0) mg/dL Estim Creat Clear Calc 30 ml/min Estimated GFR 41 L (59 - ) Glucose 107 (65-110) mg/dL Lactic Acid 1.7 (0.7-2.0) mmol/L Calcium 8.9 (8.4-10.2) mg/dL Total Bilirubin 1.6 H (0.2-1.3) mg/dL AST 35 (14-36) U/L ALT 12 (6-35) U/L Alkaline Phosphatase 78 (38-126) U/L Troponin I 0.441 H* (0.000-0.034) ng/mL Total Protein 7.0 (6.3-8.2) g/dL Albumin 3.8 (3.5-5.1) g/dL Imaging Data Radiologist's impression: ITS Impressions Chest X-Ray 06/08/24 07:16 IMPRESSION: Mild infiltrate in the right mid and lower lung zones; consider pneumonia, aspiration Head CT 06/08/24 07:20 IMPRESSION: 4.4 x 4.7 cm mid to left cerebellar hematoma with compression and right lateral displacement of the fourth ventricle with associated 3rd and 4th ventricular outlet obstruction/increased hydrocephalus with worsening hypodensity of the periventricular white matter There is intraventricular rupture with blood in third ventricle and both lateral ventricle occipital horns and extensive bilateral subarachnoid hemorrhage Dr. Morris telephoned the report on 06/08 sagittal and 25 and 0029 hours to emergency room physician Dr. Keller Critical Care Time Critical Care Time Critical Care Time: Yes Total Critical Care Time: 35 Discharge Plan Discharge Clinical Impression: Intracranial hemorrhage, ST elevation (STEMI) myocardial infarction Patient Disposition: Hospice [facility] Inpatient Condition: Critical
[2024-06-08 09:45] VITALS: BP 167/95; PULSE 88; RESP 16; O2SAT 95
--- NOTE | 2024-06-08 09:51 | PCCCNOTE ---
0745: Called to the ED to place pt on hospice. Pt would like [facility]. 0750 called Jomar, contact representative nurse for Hospice, left message. 0820: Faxed the pt demographics to the office. Attempted to call multiple times with going straight to voicemail. I called the main line and spoke with a insurance representative, who said she could have a RN here by [phone]. I refaxed pt info to the call center at [phone]. Family and ED notified of the time of ETA.
[2024-06-08 10:02] VITALS: BP 165/93; PULSE 87; RESP 10; O2SAT 94
--- NOTE | 2024-06-08 10:15 | PC.NURSE ---
[facility] CAPTAIN AT BEDSIDE TO CONSULT AND TALK WITH FAMILY
[2024-06-08] MEDS: MORPHINE SULFATE (*CRX) 4 MG/ML INJ IV PUSH (11:18)
--- NOTE | 2024-06-08 17:26 | PCCCNOTE ---
1015: Eugenia Olsen nurse here talking with patients family. Pt will be [facility].
== END 2024-06-08 11:50 | disposition hospice, inpatient (51) ==
LOC: ANHED 07:32 → ANH3MEDSUR 11:57
PROVIDERS: Emergency Provider Emergency Medicine; PCP Family Medicine
DX: I62.9 Nontraumatic intracranial hemorrhage, unspecified (principal); I21.3 ST elevation (STEMI) myocardial infarction of unspecified site; Z51.5 Encounter for palliative care; F03.90 Unspecified dementia, unspecified severity, without behavioral disturbance, psychotic disturbance, mood disturbance, and anxiety; I12.9 Hypertensive chronic kidney disease with stage 1 through stage 4 chronic kidney disease, or unspecified chronic kidney disease; N18.30 Chronic kidney disease, stage 3 unspecified; I25.10 Atherosclerotic heart disease of native coronary artery without angina pectoris; E78.5 Hyperlipidemia, unspecified; I25.2 Old myocardial infarction; D64.9 Anemia, unspecified; M81.0 Age-related osteoporosis without current pathological fracture; Z66 Do not resuscitate; Z86.19 Personal history of other infectious and parasitic diseases; Z86.73 Personal history of transient ischemic attack (TIA), and cerebral infarction without residual deficits; Z79.899 Other long term (current) drug therapy
CPT/HCPCS: 36415; 70450; 71045; 80053; 83605; 84484; 85025; 85055; 85610; 85730; 93005; 99291; J2270

== ENCOUNTER 2024-06-08 12:09 | HOS | payer OTHER, MEDICARE, SELFPAY ==
[2024-06-08 13:56] VITALS: PULSE 95; RESP 10
[2024-06-08] MEDS: MORPHINE 50 MG/NS 100ML (*CRX) 50 MG/100 ML BAG IV CONT (13:56)
[2024-06-08] MEDS: ARTIFICIAL TEARS OPHTH SOLN 15 ML BOTTLE 1 DROP EACH EYE (14:00)
--- NOTE | 2024-06-08 22:07 | P.HP_ITS ---
H&P: HPI History of Present Illness Date/Time: 06/08/24 22:07 Chief Complaint: uncontrolled pain and restlessness Narrative: 68 y/o f NH resident was found by staff today to be unresponsive with snoring respirations. She has a prior hx of stroke. EMS was summoned and she was transported to ED. CT brain revealed a large intracranial bleed. She was restless and appeared very uncomfortable. This improved with morphine IV. Her POA opted for comfort care only. Therefore she was admitted to the inpatient hospice service. Review of Systems Review of Systems: ROS unobtainable: Yes unobtainable due to medical condition PMFSH Past Medical History Medical History Esophageal varices Cirrhosis Acute on chronic anemia Pancytopenia Coronary artery disease Chronic kidney disease, stage 3 Cerebrovascular accident Hyperlipidemia Anxiety Osteoporosis Hepatitis C Major depression Myocardial infarction Hypertension Dementia Surgical History Surgical History History of right hip replacement History of cardiac catheterization History of hysterectomy History of cystoscopy History of percutaneous coronary intervention Family History Family History Sibling Acute myocardial infarction Mother Cancer Unknown Heart disease Hypertension Cerebrovascular accident Social History Social History Social History: . Has 2 sons. 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 No alcohol or illicit substance use. Surrogate medical decision maker: Kwabena Carter, spouse. Code status: Do not resuscitate. Smoking packs per day: 1 Smoking cigarettes per day: 20.0 Years smoked: 40 Smoking pack-years: 40.00 Smoking status: Never smoker Alcohol intake: never Substance use: never Substance use type: does not use Lack of Transportation: No Lack of Food: Never True Current Housing: I Have Housing Concerned About Future Housing: No Difficulty Paying Gas/Electric Bills: No Difficulty Paying for Meds: No Currently Unemployed: No Education: Decline to Answer Difficulty w/ Childcare or Family Care: No Living arrangements: shelter Additional living arrangements comments: [facility] Spiritual care concerns: No Meds Home Medications and Allergies Home Medications ?Medication ?Instructions ?Recorded ?Confirmed ?Type acetaminophen 325 mg tablet 650 mg PO Q4H PRN Pain 04/28/22 03/05/24 History (Tylenol) alendronate 70 mg tablet (Fosamax) 70 mg PO WEEKLY 04/28/22 03/05/24 History amlodipine 2.5 mg tablet (Norvasc) 2.5 mg PO DAILY 04/28/22 03/05/24 History cholecalciferol (vitamin D3) 25 50 mcg PO DAILY 04/28/22 03/05/24 History mcg (1,000 unit) tablet (Vitamin D3) memantine 10 mg tablet (Namenda) 10 mg PO BID 04/28/22 03/05/24 History polyethylene glycol 3350 17 gram 17 g PO DAILY PRN Constipation 04/28/22 03/05/24 History oral powder packet (Miralax) sennosides 8.6 mg-docusate sodium 8.5 - 50 tablet PO HS PRN 04/28/22 03/05/24 History 50 mg tablet (Senna Plus) Constipation sertraline 50 mg tablet (Zoloft) 50 mg PO DAILY 04/28/22 03/05/24 History Saccharomyces boulardii 250 mg 250 mg PO BID 05/27/22 03/05/24 History capsule (Florastor) famotidine 10 mg tablet 20 mg PO PRN PRN heartburn 05/27/22 03/05/24 History potassium chloride 20 mEq 20 meq PO DAILY 05/27/22 03/05/24 History tablet,extended release ibuprofen 800 mg tablet 800 mg PO QID PRN Pain 01/28/23 03/05/24 History lamotrigine 25 mg tablet 50 mg PO DAILY 02/22/24 03/05/24 History memantine 10 mg tablet 10 mg PO BID 02/22/24 03/05/24 History carvedilol 6.25 mg tablet 6.25 mg PO Q12H #60 tabs 03/05/24 Rx Allergies Allergy/AdvReac Type Severity Reaction Status Date / Time lisinopril Allergy Unknown Verified 03/05/24 12:53 Vital Signs Vital Signs - 24 hr 06/08/24 13:56 Pulse Rate 95 Respiratory Rate 10 L Exam Narrative: prior to my exam. Assessment and Plan Assessment and plan (1) Hospice care: Code(s): Z51.5 - Encounter for palliative care Status: Acute Assessment and Plan: * Meets inpatient hospice criteria due to requiring continuous IV morphine for analgesia. * PRN palliative regimen ordered. (2) Intracranial hemorrhage: Code(s): I62.9 - Nontraumatic intracranial hemorrhage, unspecified Status: Acute (3) History of CVA (cerebrovascular accident): Code(s): Z86.73 - Personal history of transient ischemic attack (TIA), and cerebral infarction without residual deficits Status: Acute (4) Dementia: Code(s): F03.90 - Unspecified dementia, unspecified severity, without behavioral disturbance, psychotic disturbance, mood disturbance, and anxiety Status: Acute
--- NOTE | 2024-06-08 22:11 | P.DN_ITS ---
Discharge Summary Date and Time Date of : 06/08/24 Time of : 15:13 Provider Pronounced By: 2 RNs Name of First RN That Pronounced: Caroline Morris Name of Second RN That Pronounced: Ashleigh Freeman Probable Cause of Probable Cause of : intracranial hemorrhage Summary Hospital Course: Admitted to inpatient hospice service due to uncontrolled restlessness and pain. Medications titrated to comfort. Mrs. Zapata peacefully. Additional Data Confirmation of as documented by pronouncing clinician: Pupillary Reflex, Palpable Pulses, Response to Stimuli, Heart Tones and Breath Sounds Name of Provider Notified: Dr. Ann Time Provider Notified: 15:28 [employer] Notified: Yes Date [facility] Notified of : 06/08/24 Time [facility] Notified of : 15:50
== END 2024-06-08 15:13 | disposition expired | DRG 951 ==
PROVIDERS: Admitting Provider Internal Medicine; PCP Family Medicine; Visit Provider Internal Medicine
DX: Z51.5 Encounter for palliative care (principal); I62.9 Nontraumatic intracranial hemorrhage, unspecified; Z66 Do not resuscitate; I25.2 Old myocardial infarction; I12.9 Hypertensive chronic kidney disease with stage 1 through stage 4 chronic kidney disease, or unspecified chronic kidney disease; I25.10 Atherosclerotic heart disease of native coronary artery without angina pectoris; F03.90 Unspecified dementia, unspecified severity, without behavioral disturbance, psychotic disturbance, mood disturbance, and anxiety; N18.30 Chronic kidney disease, stage 3 unspecified; Z86.73 Personal history of transient ischemic attack (TIA), and cerebral infarction without residual deficits
CPT/HCPCS: A9270; J2270